=== PATIENT | male | born 1975 | race Caucasian/White ===

== ENCOUNTER 2020-10-31 18:45 | Emergency (ER) | payer OTHER, SELFPAY ==
--- NOTE | ~2020-10-31 | XR_ITS ---
EXAMINATION: XR ANKLE, RIGHT CLINICAL INFORMATION: Fall. Pain. COMPARISON: None TECHNIQUE: AP, lateral, and mortise views of the right ankle. FINDINGS: No acute fracture or dislocation. There is a lateral semitubular plate and screws across distal fibula, 2 transsyndesmotic screws and 2 screws across the medial malleolus. There is lucency surrounding the transsyndesmotic screws, less than 2 mm (within normal limits) Moderate tibiotalar marginal osteophytes. Ankle mortise is congruent. Talar dome intact. Positive ankle joint effusion. XR/XR ankle RT 2V IMPRESSION: No acute fracture, dislocation, evidence of hardware failure or dislocation. An ankle joint effusion is present.
--- NOTE | 2020-10-31 19:24 | ED.LOWEXIN ---
HPI - Extremity Injury (Lower) General Chief Complaint: Extremity Injury, Lower Stated Complaint: Ankle pain Time Seen by Provider: 10/31/20 18:50 Source: patient Mode of arrival: wheelchair Limitations: no limitations History of Present Illness HPI Narrative: 44-year-old male here with complaints of right ankle pain after an injury which occurred just prior to arrival. The patient tells me he slipped causing an eversion injury to his right ankle and since then he has had pain in the ankle which is worsened with weight-bearing. He has a prior history of the a distal right tibial and fibula fracture with surgical repair with screws in place in 2019 at [facility] Related Data Allergies Allergy/AdvReac Type Severity Reaction Status Date / Time ibuprofen [IBUPROFEN] AdvReac Severe STOMACH Verified 10/31/20 19:44 UPSET hydrocodone [From VICODIN] AdvReac Mild nausea Verified 10/31/20 19:44 Review of Systems Review of Systems: Yes all other systems are reviewed and are negative Constitutional: Constitutional: Reports no additional constitutional complaints, Denies body ache(s), Denies chills, Denies fever(s), Denies headache(s) and Denies weakness Eyes: Eyes: Reports no additional eye complaints and Denies change in vision ENT: Reports system reviewed and no additional complaints, except as documented, Denies dizziness, Denies headache(s), Denies nasal congestion, Denies nasal discharge and Denies neck pain Cardiovascular: Cardiovascular: Reports no additional cardiovascular complaints, Denies chest pain, Denies leg edema and Denies dyspnea Respiratory: Respiratory: Reports no additional respiratory complaints, Denies cough and Denies dyspnea Gastrointestinal: Gastrointestinal: Reports no additional gastrointestinal complaints, Denies abdominal pain, Denies diarrhea, Denies nausea and Denies vomiting Genitourinary: Genitourinary: Denies urinary incontinence Musculoskeletal: Musculoskeletal: Reports no additional musculoskeletal complaints, Denies back pain, Reports arthralgias, Reports joint swelling, Denies neck pain, Denies numbness and Denies tingling Integumentary/Breasts: Skin/Breast: Reports system reviewed and no additional complaints, except as docu and Denies rash Neurologic: Reports system reviewed and no additional complaints, except as documented, Denies Abnormal speech present, Denies dizziness, Denies headache(s), Denies numbness, Denies tingling and Denies weakness [facility] Past Medical History Attestation statement: The following information was validated with the patient. Source: old records reviewed and nursing notes reviewed Medical History (Updated 10/31/20 @ 21:01 by Justino Benson NP) Bursitis Surgical History (Updated 10/31/20 @ 19:30 by Justino Benson NP) History of ankle surgery Social History Social History Advance Directives: No Advance Directives Information Provided: No Physical Exam Vital Signs: Vital Signs: Last Vital Signs Temp 98.5 F 10/31/20 19:28 Pulse 75 10/31/20 19:28 Resp 17 10/31/20 19:28 BP 98/57 L 10/31/20 19:28 Pulse Ox 94 10/31/20 19:28 Body Mass Index 30.1 Const: General: cooperative, healthy appearing, comfortable and no acute distress Orientation/consciousness: patient oriented x3 Limitations: no limitations HENMT: Head: Yes normal to inspection Ears: hearing grossly normal bilaterally General nose exam: Normal external nose present Face and sinus: Yes normal facial exam Mouth: Normal oral and palatal mucosa present Throat: Yes posterior oropharynx normal Eyes: General: appearance normal, both eyes and all related structures Pupils: Equal, round and reactive pupils present Neck: Neck: Yes normal visual inspection Chest: Chest palpation & inspection: normal inspection of the chest Resp: Effort & Inspection: normal respiratory effort Auscultation: clear to auscultation bilaterally Cardio: Rate: regular rate Rhythm: regular rhythm Peripheral pulses: Peripheral pulses 2+ throughout GI: Inspection: Yes normal to inspection Palpation (GI): Soft to palpation and nontender Auscultation: normal bowel sounds Back/Spine/Pelvis: Thoracic/Lumbar Spine: thoracic and lumbar spine normal to inspection Skin: General skin exam: no rashes or lesions noted Neuro: General: patient oriented x3, no focal motor deficits and normal sensation to monofilament Cranial nerves: Yes Equal, round and reactive pupils present Cognition (Neuro): normal cognition Speech: No Abnormal speech present Gait exam (Neuro): Normal gait present Motor exam (neuro): 5/5 motor strength present throughout Extrem: Other: to the right anterior, lateral and medial ankle there is mild tenderness with swelling. Patient is able to flex and extend the foot with no difficulty. No pain over the dorsal foot. General: Yes normal to inspection Course Course Course Narrative: Will check x-rays. 2100- x-ray show no acute fracture, dislocation or evidence of hardware failure. No dislocation. Likely ankle sprain. Will place patient in Jorge wrap and crutches for home. I did recommend A air splint but patient declined this. Reviewed worrisome signs and symptoms of when to return to the emergency department. Comfortable discharge home. Procedures Procedure Narrative Procedure Narrative: Jorge wrap and crutches MDM - Extremity Injury (Lower) Medical Records Attestation: I reviewed the patient's medical records. Lab Data Attestation: I reviewed the patient's lab results. Imaging Data ankle right xray: Attestation: I personally reviewed and interpreted this imaging study as follows: Radiologist's impression: [address] [id number] ReportSigned Patient: Cleve Gr RMR#: [id number]: [id number]:[id number]/Sex: 44 / MADM Date: 10/31/20Loc: HO.EDAttending Dr: Ordering Physician: JUSTINO BENSON NP Date of Service: 10/31/20 Procedure(s): XR ankle RT 2V Accession Number(s): [id number] cc: JUSTINO BENSON NP~ EXAMINATION: XR ANKLE, RIGHT CLINICAL INFORMATION: Fall. Pain. COMPARISON: None TECHNIQUE: AP, lateral, and mortise views of the right ankle. FINDINGS: No acute fracture or dislocation. There is a lateral semitubular plate and screws across distal fibula, 2 transsyndesmotic screws and 2 screws across the medial malleolus. There is lucency surrounding the transsyndesmotic screws, less than 2 mm (within normal limits) Moderate tibiotalar marginal osteophytes. Ankle mortise is congruent. Talar dome intact. Positive ankle joint effusion. XR/XR ankle RT 2V IMPRESSION: No acute fracture, dislocation, evidence of hardware failure or dislocation. An ankle joint effusion is present. Discharge Plan Discharge Clinical Impression: Ankle sprain and strain Patient Disposition: Home, Self-Care Instructions: Ankle Sprain (ED) Additional Instructions: Rest, elevation, ice no weight-bearing until able to bear weight without experiencing pain Tylenol for pain at home your x-ray showed no fracture Referrals: Physician,None [Primary Care Provider] - 2 days Discharge Date/Time: 10/31/20 21:12
[2020-10-31 19:28] VITALS: BP 98/57; PULSE 75; RESP 17; TEMP 36.9; O2SAT 94; BMI 30.1
[2020-10-31] MEDS: Acetaminophen 325 MG TABLET 650 MG PO (19:46)
--- NOTE | 2020-10-31 19:48 | PC.NURSE ---
PT WAS TRIAGED AND OFFERED PAIN MED TYL/MOTRIN BY THIS NURSE IMMEDIATELY AFTER TRIAGE. PT HAS ALLERGY LISTED FOR MOTRIN. THIS WAS ADDRESSED WITH PATIENT. TYLENOL GIVEN. PT MAKING STATEMENTS THAT [facility] [place] STIGMA AGAINST CERTAIN PEOPLE. STATES HAS BEEN HERE OVER 1 1/2 HRS AND DID NOT GET PAIN MED IMMEDIATELY WHEN HE ARRIVED TO ED. PT STATES HE DROVE HIMSELF HERE DURING TRIAGE. EXPLAINED TO PATIENT THAT I TRIAGED HIM AND OFFERED HIM PAIN MAED IMMEDIATELY. THAT I CAN ONLY ORDER TYL OR MOTRIN BECAUSE I AM THE NURSE. WILL DISCUSS WITH PROVIDER.
--- NOTE | 2020-10-31 20:56 | PC.NURSE ---
XRAY NOT BACK YET. CHECKING WITH RADIOLOGY.
== END 2020-10-31 21:12 | disposition home or self-care (01) ==
PROVIDERS: Emergency Provider Emergency Medicine
DX: S93.401D Sprain of unspecified ligament of right ankle, subsequent encounter (principal); W01.0XXD Fall on same level from slipping, tripping and stumbling without subsequent striking against object, subsequent encounter; M25.471 Effusion, right ankle; Z98.890 Other specified postprocedural states
CPT/HCPCS: 73600; 99283; 99284

== ENCOUNTER 2022-04-22 17:55 | Inpatient (IN) | payer OTHER, SELFPAY ==
[2022-04-22 18:03] VITALS: BP 143/80; PULSE 90; RESP 18; TEMP 36.6; O2SAT 97; BMI 27.3
--- NOTE | 2022-04-22 19:28 | ED.PSYCH ---
HPI - Psych General Chief Complaint: Psychiatric Symptoms Stated Complaint: si, hearing voices Time Seen by Provider: 04/22/22 19:28 Source: patient Mode of arrival: ambulatory Limitations: no limitations History of Present Illness HPI Narrative: 46-year-old male presents for crisis evaluation, states to have auditory hallucinations but is nondescript about what they are. He reports that he has a polysubstance use disorder and feels suicidal. He has been admitted to [facility] psychiatric unit in the past. MD complaint: suicidal ideation, anxiety, substance abuse and hallucinations Onset (ago): year(s) Duration: constant History of same: Yes Context: recent drug abuse Associated psychiatric symptoms: depression, suicidal ideation and auditory hallucinations If self harm: admits thoughts of self harm Related Data Home Medications Medication Instructions Recorded Confirmed aspirin 325 mg tablet,delayed 1 tab PO DAILY 04/22/22 04/22/22 release bupropion HCl 300 mg 24 hr tablet, 1 tab PO DAILY 04/22/22 04/22/22 extended release clonazepam 1 mg tablet 1 tab PO BID 04/22/22 04/22/22 cyclobenzaprine 10 mg tablet 1 tab PO TID PRN Muscle Spasm 04/22/22 04/22/22 dicyclomine 10 mg capsule 1 cap PO QID PRN Pain 04/22/22 04/22/22 gabapentin 300 mg capsule 2 cap PO TID 04/22/22 04/22/22 hydroxyzine pamoate 50 mg capsule 50 mg PO BEDTIME 04/22/22 04/22/22 ibuprofen 200 mg tablet 1 tab PO Q4H PRN mild pain 04/22/22 04/22/22 nicotine (polacrilex) 2 mg gum 1 gum PO Q2H PRN Nicotine Cravings 04/22/22 04/22/22 quetiapine 300 mg tablet 2 tab PO BEDTIME 04/22/22 04/22/22 trazodone 300 mg tablet 1 tab PO BEDTIME 04/22/22 04/22/22 Allergies Allergy/AdvReac Type Severity Reaction Status Date / Time ibuprofen [IBUPROFEN] AdvReac Severe STOMACH Verified 10/31/20 19:44 UPSET hydrocodone [From VICODIN] AdvReac Mild nausea Verified 10/31/20 19:44 Review of Systems Review of Systems: Constitutional: No Fever, No Chills Cardiovascular: No Chest Pain, No SOB Respiratory: No Cough, No Sputum, No Dyspnea Gastrointestinal: No Nausea, No Vomiting, No Diarrhea Genitourinary: No Dysuria, No Urinary Frequency Musculoskeletal: No Myalgias Skin: No Skin Lesions, No rash Neuro: No Weakness, No Numbness, No Paresthesias, No Dizziness, No Headache Psych: positive Anxiety, positive Depression, positive SI, positive auditory hallucinations, positive substance abuse Yes all other systems are reviewed and are negative [facility] Past Medical History Attestation statement: The following information was validated with the patient. Source: old records reviewed Medical History Bursitis Surgical History History of ankle surgery Social History Social History Advance Directives: No Advance Directives Information Provided: No Physical Exam Vital Signs: Vital Signs: Last Vital Signs Temp 98 F 04/22/22 18:03 Pulse 90 04/22/22 18:03 Resp 18 04/22/22 18:03 BP 143/80 H 04/22/22 18:03 Pulse Ox 97 04/22/22 18:03 O2 Del Method 04/22/22 18:03 BMI result Body Mass Index 27.3 Appearance: Alert. Oriented X3. No acute distress. Eyes: Pupils equal, round and reactive to light. ENT: Pharynx normal. Neck: Normal inspection. Neck supple. CVS: Normal heart rate and rhythm. Pulses normal. Respiratory: No respiratory distress. Breath sounds normal. Skin: Skin warm and dry. Normal skin color. Normal skin turgor. Extremities: Gait well balanced well coordinated. Neuro: No motor deficit. No sensory deficit. Cranial nerves 2-12 intact. Course Course Course Narrative: 46-year-old male presents for psychiatric evaluation. Is reporting auditory hallucinations, and polysubstance abuse. Reports that he has had several psychiatric admissions to [facility]. Patient is not forthcoming about his plan or auditory hallucinations. Will order labs and crisis consult. 21:00 lab values are unremarkable. Urinalysis is pending. Medically cleared with the exception of drugs of abuse screen. Physician observation at this time. Crisis consult pending. Medications Administered Generic Name Dose Route Start Last Admin Trade Name Freq PRN Reason Stop Dose Admin Clonazepam 1 mg 04/22/22 21:45 04/22/22 21:52 Clonazepam 1 Mg Tablet PO 1 mg BID ROMI Administration Gabapentin 600 mg 04/22/22 21:45 04/22/22 21:52 Gabapentin 300 Mg Capsule PO 600 mg TID ROMI Administration Hydroxyzine HCl 50 mg 04/22/22 21:45 04/22/22 21:52 Hydroxyzine Hcl 50 Mg Tablet PO 50 mg BEDTIME ROMI Administration Trazodone HCl 300 mg 04/22/22 21:45 04/22/22 21:52 Trazodone Hcl 100 Mg Tablet PO 300 mg BEDTIME ROMI Administration Medical Decision Making Differential Diagnosis Differential Diagnoses: The differential diagnosis associated with the presentation includes Psychosis, polysubstance abuse, suicidal Admission/Observation Consideration of admission/observation: Escalation of care including admission/observation considered Possible M5 M3 admission Consult Healthcare Provider Management of the patient was discussed with: Behavioral Health Provider Lab Data MDM Lab Attestation statement: I reviewed the patient's lab results. Result Diagrams: 04/22/22 19:47 Labs: Lab Results 04/22/22 04/22/22 Range/Units 19:47 19:47 Sodium 138 (135-145) mmol/L Potassium 4.7 (3.3-5.1) mmol/L Chloride 104 (96-108) mmol/L Carbon Dioxide 24 (22-29) mmol/L Anion Gap 15 (12-20) BUN 11 (9-16) mg/dL Creatinine 0.88 (0.5-1.4) mg/dL Estim Creat Clear Calc 104.8 Estimated GFR > 60 Random Glucose 75 (60-115) mg/dL Calcium 9.3 (8.4-10.2) mg/dL Total Bilirubin 0.6 (0.0-1.0) mg/dL AST 40 H (5-37) U/L ALT 18 (0-40) U/L Alkaline Phosphatase 65 (39-117) U/L Total Protein 8.4 H (6.5-8.0) g/dL Albumin 4.6 (3.5-5.0) g/dL Salicylates < 5.0 L (15-30) mg/dL Acetaminophen < 1 (<30) mcg/mL Ethyl Alcohol < 10 mg/dL COVID-19 (MAHAD) Negative (Negative) COVID-19 Clin Com See Note Discharge Plan Discharge Clinical Impression: Acute psychosis, Suicidal ideation Patient Disposition: Still a Patient Prescriptions: No Action cyclobenzaprine 10 mg tablet 1 tab PO TID PRN (Reason: Muscle Spasm) nicotine (polacrilex) 2 mg gum 1 gum PO Q2H PRN (Reason: Nicotine Cravings) clonazepam 1 mg tablet 1 tab PO BID hydroxyzine pamoate 50 mg capsule 50 mg PO BEDTIME aspirin 325 mg tablet,delayed release (DR/EC) 1 tab PO DAILY ibuprofen 200 mg tablet 1 tab PO Q4H PRN (Reason: mild pain) trazodone 300 mg tablet 1 tab PO BEDTIME gabapentin 300 mg capsule 2 cap PO TID dicyclomine 10 mg capsule 1 cap PO QID PRN (Reason: Pain) bupropion HCl 300 mg tablet extended release 24 hr 1 tab PO DAILY quetiapine 300 mg tablet 2 tab PO BEDTIME
[2022-04-22 20:34] LABS: COVID-19 Test Negative (Negative)
[2022-04-22 20:37] LABS: Acetaminophen LAB < 1 mcg/mL (<30); Alanine Aminotransferase 18 U/L (0-40); Albumin Level 4.6 g/dL (3.5-5.0); Alkaline Phosphatase 65 U/L (39-117); Anion Gap 15 (12-20); Aspartate Amino Transferase 40 U/L (5-37); Bilirubin Total 0.6 mg/dL (0.0-1.0); Blood Urea Nitrogen 11 mg/dL (9-16); Calcium 9.3 mg/dL (8.4-10.2); Carbon Dioxide 24 mmol/L (22-29); Chloride 104 mmol/L (96-108); Creatinine Clr Calc Pharmacy 104.8; Estimated Glomerular Filt Rate > 60; Ethanol < 10 mg/dL; Glucose Random 75 mg/dL (60-115); Potassium 4.7 mmol/L (3.3-5.1); Salicylate < 5.0 mg/dL (15-30); Sodium 138 mmol/L (135-145); Total Protein 8.4 g/dL (6.5-8.0)
[2022-04-22] MEDS: traZODone HCL 100 MG TABLET 300 MG PO (21:52)
[2022-04-22] MEDS: Gabapentin 300 MG CAPSULE 600 MG PO (21:52)
[2022-04-22] MEDS: clonazePAM 1 MG TABLET PO (21:52)
[2022-04-22] MEDS: hydrOXYzine HCL 50 MG TABLET PO (21:52)
--- NOTE | 2022-04-23 03:03 | PC.NURSE ---
Patient is in bed appears sleeping, no distress observed/reported, medication compliant, urine pending, [facility] referral completed/pending ETA, behavior non concerning, VSS, will continue to monitor.
[2022-04-23 06:02] VITALS: RESP 17
[2022-04-23] MEDS: clonazePAM 1 MG TABLET PO ×2 (08:50→20:29)
[2022-04-23] MEDS: Gabapentin 300 MG CAPSULE 600 MG PO ×3 (08:50→20:29)
[2022-04-23] MEDS: buPROPion HCl XL 300 MG TAB.ER.24H PO (08:50)
[2022-04-23] MEDS: Aspirin Enteric Coated 325 MG TABLET.DR PO (08:51)
--- NOTE | 2022-04-23 12:32 | PC.NURSE ---
patient sitting in bed, watching tv. cooperative and polite to staff members. able to make needs known.ambulating with strong steady gait
[2022-04-23] MEDS: Cyclobenzaprine HCl 10 MG TABLET PO (12:48)
[2022-04-23] MEDS: Ibuprofen 200 MG TABLET PO (12:48)
--- NOTE | 2022-04-23 15:05 | MHC.CARE ---
statewide inpatient bedsearch exhausted
[2022-04-23 16:09] VITALS: BP 103/56; PULSE 64; RESP 16; TEMP 36.6; O2SAT 97
[2022-04-23] MEDS: traZODone HCL 100 MG TABLET 300 MG PO (20:29)
[2022-04-23] MEDS: hydrOXYzine HCL 50 MG TABLET PO (20:29)
--- NOTE | 2022-04-24 06:01 | PC.NURSE ---
Patient slept through the night, no distress observed/reported, medication compliant, behavior appropriate and non concerning at this time, urine pending, disposition per care team is voluntary inpatient bed search, no update on bed search thus far, VSS, will continue to monitor.
[2022-04-24 06:19] LABS: MANUAL DIFF FLAG NO
[2022-04-24 06:31] VITALS: BP 109/51; PULSE 56; RESP 17; TEMP 37.1; O2SAT 98
[2022-04-24 06:32] LABS: Basophils Percent Auto 0.5 % (0-2); Eosinophils Absolute Auto 0.2 X10*3/uL (0.0-0.4); Eosinophils Percent Auto 3.8 % (0-4); Hematocrit 34.7 % (42.0-52.0); Hemoglobin 10.9 g/dl (14.0-18.0); Imm Gran Abs Auto 0.01 X10*3/uL (0.00-0.03); Imm Gran Pct Auto 0.2 % (0.0-0.4); Lymphocytes Absolute Auto 2.7 X10*3/uL (1.2-4.9); Lymphocytes Percent Auto 49.8 % (20-40); Mean Corpuscular HGB Conc 31.4 g/dl (31.0-36.0); Mean Corpuscular Hemoglobin 29.6 pg (27.0-33.0); Mean Corpuscular Volume 94.3 fL (80.0-98.0); Mean Platelet Volume 11.5 fL (9.4-12.4); Monocytes Absolute Auto 0.6 X10*3/uL (0.1-1.2); Monocytes Percent Auto 11.5 % (2-11); Neutrophils Absolute Auto 1.9 x10*3/uL (2.0-8.3); Neutrophils Percent Auto 34.2 % (45-73); Platelet Count 164 X10*3/uL (160-400); Red Blood Count 3.68 X10*6/uL (4.60-5.80); Red Cell Distribution Width 13.5 % (11.0-16.0); White Blood Count 5.5 X10*3/uL (4.8-10.8)
[2022-04-24 07:33] LABS: Amphetamine Screen Urine Not Detected (Not Detect); Barbiturates, Urine Not Detected (Not Detect); Benzodiazepines Screen Urine Not Detected (Not Detect); Cannabinoid Screen Urine Not Detected (Not Detect); Cocaine Screen Urine POSITIVE (Not Detect); Fentanyl, urine POSITIVE (Not Detect); Opiate Screen Urine POSITIVE (Not Detect); Phencyclidine Screen Urine Not Detected (Not Detect)
[2022-04-24] MEDS: Gabapentin 300 MG CAPSULE 600 MG PO ×3 (08:24→21:56)
[2022-04-24] MEDS: buPROPion HCl XL 300 MG TAB.ER.24H PO (08:24)
[2022-04-24] MEDS: clonazePAM 1 MG TABLET PO ×2 (08:24→21:57)
[2022-04-24] MEDS: Aspirin Enteric Coated 325 MG TABLET.DR PO (08:25)
--- NOTE | 2022-04-24 09:54 | ECG_ITS ---
Test Reason : MED CLEARANCE FOR FLOOR, POS ISRAEL Blood Pressure : / mmHG Vent. Rate : 069 BPM Atrial Rate : 069 BPM P-R Int : 172 ms QRS Dur : 084 ms QT Int : 416 ms P-R-T Axes : 058 077 046 degrees QTc Int : 445 ms Normal sinus rhythm with sinus arrhythmia Normal ECG When compared with ECG of 12-FEB-2015 23:07, QRS voltage has decreased Referred By: Jaelyn Black Electronically Signed By:ILEANA HART MD
--- NOTE | 2022-04-24 10:18 | HE.PHANOTE ---
Vancomycin Dosing Addendum Patients methadone was verified this morning by NEREIDA Perez, with [facility] @[phone]. Verified with NEREIDA Guerra at the facility, patient is on 90 mg PO daily.
--- NOTE | 2022-04-24 10:26 | PHA.MEDREC ---
Pharmacy Consult ? Medication Reconciliation Pharmacy has completed the medication reconciliation. Reviewed med rec done by nursing (Escobar).
[2022-04-24] MEDS: methADONE HCl 20 MG/2 ML ORAL.CONC 90 MG PO (10:53)
[2022-04-24] MEDS: clonazePAM 0.5 MG TABLET PO (15:26)
[2022-04-24 18:00] VITALS: BP 119/66; PULSE 83; TEMP 36.2
[2022-04-24] MEDS: QUEtiapine Fumarate 300 MG TABLET 600 MG PO (21:56)
[2022-04-24] MEDS: traZODone HCL 100 MG TABLET 300 MG PO (21:57)
[2022-04-24] MEDS: hydrOXYzine HCL 50 MG TABLET PO (21:58)
--- NOTE | 2022-04-25 00:09 | PC.ADMIT ---
A Brazilian-speaking white male aged 46 years was [facility] at 1753 following referral from [facility]. Pt is not known to but was recently discharged from [facility] on 04/19/22 after a 17 day stay for medication stabilization per pt. Pt expressed he felt he left too early. Pt self presented to [facility] on 04/22/22 endorsing auditory hallucinations. Pt had said he has a poly-substance use disorder and feels suicidal. Pt reported after d/c from [facility], he returned to his apartment to find out that his girlfriend has been using crack cocaine. Pt woke finding discharge medications and his car missing. Pt said he had not had his medications for about 4-5 days and began to have AH of voices and having thoughts to harm his GF. Pt denies current thoughts to harm his GF and says he can seek out staff fore help. Pt wants to break up with his GF and is unsure if she is in trouble or sectioned somewhere. Pt expressed he is worried about his step-daughter who lives with her grandmother because she is a drug user he feels the step-daughter is neglected. Pt denies pain, rates anxiety 3/10 and depression 8/10. Pt says since restarting medications in the ED voices are less harsh . Pt denies SI/HI and says can seek help from staff. Pt reports sleeping and eating well. Pt says he feels drained emotionally and physically. Pt reports he is satisfied with his current meds ands says seroquel helps with his voices. Pt has a psychiatric medication provider he doesn't like. Pt reports he would like a therapist and says he is open to PHP; pt was encouraged to attend groups while on M5. ISRAEL was positive for opiates, fentanyl, and cocaine. Pt reports periods of sobriety adding that this was a binge. Pt denies medical issues or weight change, but says he may be experiencing some mild W/D symptoms of diarrhea and diaphoresis. [id number] done, admission orders obtained, safety tool and intial treatment plan done. Pt is resting in bed room on 15 minute safety checks.
[2022-04-25] MEDS: Gabapentin 300 MG CAPSULE 600 MG PO ×3 (08:36→20:09)
[2022-04-25] MEDS: buPROPion HCl XL 300 MG TAB.ER.24H PO (08:37)
[2022-04-25] MEDS: Aspirin Enteric Coated 325 MG TABLET.DR PO (08:37)
[2022-04-25] MEDS: methADONE HCl 20 MG/2 ML ORAL.CONC 90 MG PO (08:37)
[2022-04-25] MEDS: clonazePAM 1 MG TABLET PO ×2 (08:37→20:09)
[2022-04-25 10:11] VITALS: BP 114/65; PULSE 86; RESP 16; TEMP 36.2; O2SAT 96
[2022-04-25] MEDS: Nicotine Polacrilex 2 MG GUM BUCCAL ×3 (14:06→20:09)
[2022-04-25] MEDS: hydrOXYzine HCL 25 MG TABLET PO (14:08)
[2022-04-25 14:30] LABS: COVID-19 Test Negative (Negative); IDNOW Serial# 55D5AD1C
[2022-04-25] MEDS: Cyclobenzaprine HCl 10 MG TABLET PO (15:40)
[2022-04-25] MEDS: Ibuprofen 200 MG TABLET PO ×2 (15:42→20:09)
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
[2022-04-25] MEDS: hydrOXYzine HCL 50 MG TABLET PO (20:09)
[2022-04-25] MEDS: QUEtiapine Fumarate 300 MG TABLET 600 MG PO (20:09)
[2022-04-25] MEDS: traZODone HCL 100 MG TABLET 300 MG PO (20:10)
[2022-04-25 20:21] VITALS: BP 109/60; PULSE 79; RESP 16; TEMP 36.4; O2SAT 93
[2022-04-26 07:00] VITALS: BMI 33.3
[2022-04-26 08:45] VITALS: BP 125/64; PULSE 85; RESP 16; TEMP 36.3; O2SAT 93
[2022-04-26] MEDS: methADONE HCl 20 MG/2 ML ORAL.CONC 90 MG PO (08:52)
[2022-04-26] MEDS: Gabapentin 300 MG CAPSULE 600 MG PO ×2 (08:54→14:26)
[2022-04-26] MEDS: Aspirin Enteric Coated 325 MG TABLET.DR PO (08:55)
[2022-04-26] MEDS: buPROPion HCl XL 300 MG TAB.ER.24H PO (08:55)
[2022-04-26] MEDS: clonazePAM 1 MG TABLET PO (08:55)
[2022-04-26] MEDS: Ibuprofen 600 MG TABLET PO ×2 (08:57→14:27)
[2022-04-26] MEDS: Cyclobenzaprine HCl 10 MG TABLET PO ×2 (08:58→14:26)
[2022-04-26] MEDS: Trolamine Salicylate 10 % Cream 141 gm Tube 1 APPL TOPICAL (14:25)
[2022-04-26] MEDS: Nicotine Polacrilex 2 MG GUM BUCCAL (16:42)
[2022-04-26 17:17] VITALS: BP 107/58; PULSE 69; RESP 14; TEMP 36.3; O2SAT 93
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
[2022-04-26] MEDS: traZODone HCL 100 MG TABLET 300 MG PO (21:14)
[2022-04-26] MEDS: QUEtiapine Fumarate 300 MG TABLET 600 MG PO (21:15)
[2022-04-27] MEDS: buPROPion HCl XL 300 MG TAB.ER.24H PO (08:34)
[2022-04-27] MEDS: Gabapentin 300 MG CAPSULE 600 MG PO (08:34)
[2022-04-27] MEDS: Aspirin Enteric Coated 325 MG TABLET.DR PO (08:34)
[2022-04-27] MEDS: methADONE HCl 20 MG/2 ML ORAL.CONC 90 MG PO (08:34)
[2022-04-27] MEDS: clonazePAM 1 MG TABLET PO (08:34)
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
== END 2022-04-27 11:30 | disposition home or self-care (01) | DRG 750 ==
LOC: HO.ED 04-24 14:22 → HO.PM5 04-24 16:55
PROVIDERS: Nurse Practitioner Family; Admitting Provider Clinical Nurse Specialist Psychiatric/Mental Health, Adult; Emergency Provider Internal Medicine; Visit Provider Clinical Nurse Specialist Psychiatric/Mental Health, Adult
DX: F25.9 Schizoaffective disorder, unspecified (principal); R45.851 Suicidal ideations; F11.20 Opioid dependence, uncomplicated; Z20.822 Contact with and (suspected) exposure to COVID-19; Z79.82 Long term (current) use of aspirin; Z79.899 Other long term (current) drug therapy
CPT/HCPCS: 36415; 80053; 80143; 80179; 80307; 82077; 85025; 87635; 93005; 99285

== ENCOUNTER 2022-05-04 20:18 | Emergency (ER) | payer OTHER, SELFPAY ==
--- NOTE | 2022-05-04 | ECG_ITS ---
Test Reason : chest pain/covid+ Blood Pressure : / mmHG Vent. Rate : 086 BPM Atrial Rate : 086 BPM P-R Int : 132 ms QRS Dur : 088 ms QT Int : 364 ms P-R-T Axes : -21 072 029 degrees QTc Int : 435 ms Normal sinus rhythm Normal ECG When compared with ECG of 24-APR-2022 10:04, No significant change was found Referred By: Generic ED Physician Electronically Signed By:SUSHILA MYERS
[2022-05-04 20:44] VITALS: BP 137/83; PULSE 83; RESP 16; TEMP 36.6; O2SAT 96; BMI 31.5
--- NOTE | 2022-05-04 20:52 | MHC.EDTECH ---
This Pct attempted to draw patients labs in the waiting room, patient is an extremely difficult stick, I attempted twice,Medical Lab Director aware and Charge aware.
--- NOTE | 2022-05-04 22:52 | ED.GENADULT ---
HPI - General Adult General Chief complaint: General Medical Stated complaint: Chest pain/+Covid Time Seen by Provider: 05/04/22 22:29 Source: patient Mode of arrival: ambulatory Limitations: no limitations History of Present Illness HPI narrative: 46-year-old male presents for multiple concerns. States that he was using heroin and cocaine, and feels that he wants a repeat COVID test because he was positive at [facility] 2 days ago. Patient states he also wants to speak to the care team because he can not get his medications, and feels like he left the Psychiatric Department to early. He denies suicidal ideation and homicidal ideation. Onset (ago): year(s) Radiation: non-radiation Severity: mild Associated symptoms: denies other symptoms Treatments prior to arrival: none Related Data Home Medications Medication Instructions Recorded Confirmed methadone 10 mg/mL oral syringe 90 mg PO DAILY 04/24/22 04/24/22 (FOR ORAL USE ONLY) aspirin 325 mg tablet,delayed 1 tab PO DAILY 05/04/22 05/04/22 release bupropion HCl 300 mg 24 hr tablet, 1 tab PO DAILY 05/04/22 05/04/22 extended release clonazepam 0.5 mg tablet 1 tab PO BID PRN anxiety 05/04/22 05/04/22 cyclobenzaprine 10 mg tablet 1 tab PO TID 05/04/22 05/04/22 dicyclomine 10 mg capsule 1 cap PO Q6H PRN Gastrointestinal 05/04/22 05/04/22 Spasms Or Cramping gabapentin 300 mg capsule 2 cap PO TID 05/04/22 05/04/22 quetiapine 200 mg tablet 2 tab PO BEDTIME 05/04/22 05/04/22 trazodone 100 mg tablet 2 tab PO BEDTIME 05/04/22 05/04/22 Allergies Allergy/AdvReac Type Severity Reaction Status Date / Time hydrocodone [From VICODIN] AdvReac Mild nausea Verified 10/31/20 19:44 Review of Systems Review of Systems: Constitutional: No Fever, No Chills Cardiovascular: Positive Chest Pain, No SOB Respiratory: No Cough, No Dyspnea Gastrointestinal: No Nausea, No Vomiting, No Diarrhea, No abdominal Pain Genitourinary: No Dysuria, No Hematuria Musculoskeletal: positive chest wall pain, No Myalgias, No Joint Swelling Skin: No Skin lacerations, No rash Neuro: No Weakness, No Numbness, No Paresthesias, No Dizziness, No Headache Psych: Positive substance abuse, No Anxiety/Panic, No Depression Yes all other systems are reviewed and are negative [facility] Past Medical History Attestation statement: The following information was validated with the patient. Source: old records reviewed Medical History Bursitis Opioid use disorder Schizoaffective disorder Surgical History History of ankle surgery Social History Social History Household Members: None Housing: Apartment Do you presently have visiting nurse or other home services: No Alcohol intake: unknown Patient Tobacco Use Status: Never used Tobacco Substance Use Type: Crack/Cocaine and Opiates Advance Directives: No Advance Directives Information Provided: No service: No Sexual orientation: Straight/Heterosexual Physical Exam ED Vital Signs: Vital Signs - 24 hr 05/04/22 20:44 Temperature 97.9 F Pulse Rate 83 Respiratory Rate 16 Blood Pressure 137/83 Pulse Oximetry 96 Oxygen Delivery Method Room Air BMI result Body Mass Index 31.5 Appearance: Alert. Oriented X3. No acute distress. Eyes: Pupils equal, round and reactive to light. ENT: Pharynx normal. Neck: Normal inspection. Neck supple. CVS: Normal heart rate and rhythm. Respiratory: No respiratory distress. Skin: Skin warm and dry. Normal skin color. Normal skin turgor. Extremities: Gait well balanced well coordinated.. Neuro: No motor deficit. No sensory deficit. Cranial nerves 2-12 intact. Course Course Course Narrative: 46-year-old male well known to this facility presents for vague concerns regarding his COVID positive testing 2 days ago at [facility], his inability to obtain medications, and his substance abuse. Originally he was in [facility] area of the emergency department, however he stated that he needed to speak to a crisis counselor. Patient stated that he is not so a saddle or homicidal, is not interested in detox, states that he felt that people lied to him. Patient is very vague about his description of the lie . Patient was moved to the psychiatric unit of the emergency department. Patient denies suicidal ideation, homicidal ideation, and declines detox at this time. 23:20 patient is verbally aggressive to all staff, threatening to physically assault and Patel down the women in the emergency department psychiatric unit, states that he does not want to be here, patient is not suicidal or homicidal, patient states that everybody is lying to him. Verbally threatened this LEGAL BILLING COORDINATOR, considering patient is not section, is not suicidal or homicidal, plan of care is to discharge. Security assisting with this patient. Patient escorted off the facility by security and morals squad police officer. Medical Decision Making Differential Diagnosis Differential Diagnoses: The differential diagnosis associated with the presentation includes Lab Data MDM Lab Attestation statement: I reviewed the patient's lab results. Labs: Lab Results 05/04/22 05/04/22 05/04/22 Range/Units 23:07 23:07 23:07 Urine Color Yellow Urine Appearance Clear Urine pH 6.5 (5.0-9.0) Ur Specific [place] 1.020 (1.005-1.025) Urine Protein Negative (Neg-Trace) mg/dL Urine Glucose (UA) Negative (Negative) mg/dL Urine Ketones Trace (Negative) mg/dL Urine Blood Negative (Negative) Urine Nitrite Negative (Negative) Ur Leukocyte Esterase Negative (Negative) Urine Opiates Screen POSITIVE H (Not Detect) Urine Fentanyl Screen POSITIVE H (Not Detect) Ur Barbiturates Screen Not Detected (Not Detect) Ur Phencyclidine Scrn Not Detected (Not Detect) Ur Amphetamines Screen Not Detected (Not Detect) U Benzodiazepines Scrn Not Detected (Not Detect) Urine Cocaine Screen POSITIVE H (Not Detect) U Marijuana (THC) Screen Not Detected (Not Detect) COVID-19 (MAHAD) Positive A (Negative) COVID-19 Clin Com See Note Independent Interpretation I performed an independent interpretation of an: EKG Interpretation: Vent. rate 86 BPM NM interval 132 ms QRS duration 88 ms QT/QTc 364/435 ms P-R-T axes -21 72 29 Normal sinus rhythm Normal ECG When compared with ECG of 24-APR-2022 10:04, No significant change was found 04-MAY-2022 20:29:21 External Record Review External record reviewed: Inpatient record, Outpatient record and Prior outpatient labs Discharge Plan Discharge Clinical Impression: Anxiety Patient Disposition: Home, Self-Care Instructions: Anxiety (ED) Additional Instructions: Thank you for choosing this emergency department for evaluation. Please follow-up with primary care physician as needed. Return to the emergency department for any new, concerning, or worsening symptoms. Prescriptions: No Action methadone 10 mg/mL Syringe 90 mg PO DAILY cyclobenzaprine 10 mg tablet 1 tab PO TID clonazepam 0.5 mg tablet 1 tab PO BID PRN (Reason: anxiety) quetiapine 200 mg tablet 2 tab PO BEDTIME aspirin 325 mg tablet,delayed release (DR/EC) 1 tab PO DAILY trazodone 100 mg tablet 2 tab PO BEDTIME gabapentin 300 mg capsule 2 cap PO TID dicyclomine 10 mg capsule 1 cap PO Q6H PRN (Reason: Gastrointestinal Spasms Or Cramping) bupropion HCl 300 mg tablet extended release 24 hr 1 tab PO DAILY Interventions: ED Discharge Assessment Last Done: 05/05/22 00:16 Discharge Date/Time: 05/05/22 00:21
--- NOTE | 2022-05-04 23:12 | PC.NURSE ---
Patient was just transferred from main ED, chief complaint of ED visit was chest pain, EKG completed/WNL, ED was not able to draw blood/including Troponin/provider made aware/no new instruction related to blood draw, patient requesting for Methadone as soon as get into the pod. Patient is yelling and screaming demanding discharge.
[2022-05-04 23:18] LABS: Appearance Urine Clear; Color Urine Yellow; Glucose Urine UA Negative (Negative); Leukocyte Esterase Urine Negative (Negative); Nitrite Urine Negative (Negative); PH 6.5 (5.0-9.0); Urine Blood Negative (Negative); Urine Ketones Trace mg/dL (Negative); Urine Protein Negative (Neg-Trace)
--- NOTE | 2022-05-04 23:23 | PC.NURSE ---
Patient was extremely rude and verbally abusive towards staff, particularly with provider. Patient said to the provider, you cunt, I will hit you bitch and to our female staff, watch your back outside . Patient is under influence. Patient got agitated when hospital phone use policy was made aware. Patient demanded 24 hours access to phone.
[2022-05-04 23:26] LABS: COVID-19 Test Positive (Negative); IDNOW Serial# 6674DD1D
[2022-05-04 23:35] LABS: Fentanyl, urine POSITIVE (Not Detect)
[2022-05-04 23:36] LABS: Amphetamine Screen Urine Not Detected (Not Detect); Barbiturates, Urine Not Detected (Not Detect); Benzodiazepines Screen Urine Not Detected (Not Detect); Cannabinoid Screen Urine Not Detected (Not Detect); Opiate Screen Urine POSITIVE (Not Detect); Phencyclidine Screen Urine Not Detected (Not Detect)
[2022-05-05 01:03] LABS: Cocaine Screen Urine POSITIVE (Not Detect)
== END 2022-05-05 00:21 | disposition home or self-care (01) ==
PROVIDERS: Nurse Practitioner Family; Emergency Provider Student in an Organized Health Care Education/Training Program
DX: U07.1 COVID-19 (principal); R07.89 Other chest pain; F41.1 Generalized anxiety disorder; F43.0 Acute stress reaction; Z79.899 Other long term (current) drug therapy
CPT/HCPCS: 80307; 81003; 87635; 93005; 99283

== ENCOUNTER 2023-11-12 20:05 | Inpatient (IN) | payer OTHER, SELFPAY ==
--- NOTE | ~2023-11-12 | XR_ITS ---
EXAMINATION: XR ANKLE, RIGHT CLINICAL INFORMATION: Prior surgery. Worsening pain. COMPARISON: 10/31/2020 TECHNIQUE: AP, lateral, and mortise views of the right ankle. FINDINGS: Status post ORIF with lateral surgical plate and screw fixation of the fibula. There are 2 transverse syndesmotic screws. There are screws across the medial malleolus. The fracture lines are indistinct on the current study. No periprosthetic lucency or fracture. Mild degenerative changes of the tibiotalar joint with marginal osteophytes Ankle mortise is maintained. Talar dome is intact. No significant soft tissue swelling. No significant joint effusion. XR/XR ankle RT min 3V IMPRESSION: No radiographic evidence of hardware complication.
[2023-11-12 20:18] VITALS: BP 148/74; PULSE 90; RESP 18; TEMP 36.8; O2SAT 96; BMI 29.4
--- NOTE | 2023-11-12 20:18 | ED.PSYCH ---
HPI - Psych General Chief Complaint: Psychiatric Symptoms Stated Complaint: not sleeping Time Seen by Provider: 11/12/23 20:45 Source: patient Mode of arrival: ambulatory Limitations: no limitations History of Present Illness ED Provider: Dr. Kathy Fofana HPI Narrative: Patient comes to the emergency room complaining of insomnia. Patient states that recently his medications were switched at [facility]. Patient states that he used to take Seroquel and was working well to help him sleep but it was not helping with the auditory hallucinations. His medication was switched to Zyprexa. Patient states that he is having auditory hallucinations and now he has not sleeping. Patient was also prescribed trazodone but is not helping. Patient states that he sleeps small amounts of time here and there and feels that he has not getting enough rest. Also, patient complaining chronic parasite infestation in his blood , states that when he gets his blood drawn, one can see the parasites moving in his veins. States he has has been present for about 8 months it patient admits to stating that he will drink alcohol to . No HI Related Data Home Medications ?Medication ?Instructions ?Recorded ?Confirmed methadone 10 mg/mL oral syringe 50 mg PO DAILY 04/24/22 11/13/23 (FOR ORAL USE ONLY) baclofen 10 mg tablet 10 mg PO DAILY 11/12/23 11/12/23 bupropion HCl 75 mg tablet 75 mg PO BID@0630,1630 11/12/23 11/12/23 buspirone 5 mg tablet 5 mg PO TID 11/12/23 11/12/23 clonidine HCl 0.1 mg tablet 0.1 mg PO DAILY 11/13/23 11/13/23 gabapentin 100 mg capsule 200 mg PO TID 11/13/23 11/13/23 hydroxyzine pamoate 50 mg capsule 100 mg PO BID 11/13/23 11/13/23 melatonin 3 mg tablet 6 mg PO BEDTIME 11/13/23 11/13/23 olanzapine 10 mg tablet 10 mg PO BID 11/13/23 11/13/23 Allergies Allergy/AdvReac Type Severity Reaction Status Date / Time hydrocodone [From VICODIN] AdvReac Mild nausea Verified 11/12/23 20:20 Review of Systems Review of Systems: Constitutional : No Weight loss, No Fever, No Chills, No Night Sweats, No Fatigue, No Malaise ENT/Mouth : No Hearing loss, No Ear Pain, No Nasal Congestion, No Sinus Pain, No Hoarseness, No sore throat, No Rhinorrhea, No Swallowing Difficulty Eyes: No Eye Pain, No Swelling, No Redness, No Foreign Body, No Discharge, No Vision Changes Cardiovascular : No Chest Pain, No SOB, No Dyspnea on Exertion, No Orthopnea, No Edema, No Palpitations Respiratory : No Cough, No Sputum, No Wheezing, No Smoke Exposure, No Dyspnea Gastrointestinal : No Nausea, No Vomiting, No Diarrhea, No Constipation, No abdominal Pain, No Hematochezia, No Melena Genitourinary : no irregular bleeding, No Dysuria, No Urinary Frequency, No Hematuria, No Urinary Incontinence, No Urgency, No Flank Pain, No Urinary Flow Changes, No Hesitancy Musculoskeletal : No joint pain, No Myalgias, No Joint Swelling Skin : No Skin Lesions, No rash Neuro : No Weakness, No Numbness, No Paresthesias, No Loss of Consciousness, No Dizziness, No Headache Psych : Leading of SI, no HI, auditory hallucinations, insomnia, delusional parasitosis Heme/Lymph: No Bruising, No Bleeding,No Lymphadenopathy Endocrine : No Polyuria, No Polydipsia, No Temperature Intolerance PMFSH Past Medical History Medical History (Updated 11/12/23 @ 21:05 by Kathy Fofana MD) Delusions of parasitosis Opioid use disorder Schizoaffective disorder Bursitis Surgical History History of ankle surgery Social History Social History Household Members: None Housing: Apartment Do you presently have visiting nurse or other home services: No Alcohol intake: unknown Patient Tobacco Use Status: Never used Tobacco Substance Use Type: Crack/Cocaine and Opiates Advance Directives: No Advance Directives Information Provided: No Do you have a plan to hurt others: No Plan service: No Sexual orientation: Straight/Heterosexual Physical Exam Vital Signs: Vital Signs: Last Vital Signs Temp 97.8 F 11/13/23 06:13 Pulse 62 11/13/23 06:13 Resp 17 11/13/23 06:13 BP 110/67 11/13/23 06:13 Pulse Ox 96 11/13/23 06:13 O2 Del Method Room Air 11/13/23 06:13 BMI result Body Mass Index 29.4 Const: Other: Appearance: Alert. Oriented X3. No acute distress. Eyes: Pupils equal, round and reactive to light. ENT: Pharynx normal. Neck: Normal inspection. Neck supple. No lymph nodes noted. No crepitus CVS: Normal heart rate and rhythm. Pulses normal. Normal S1 and S2 Respiratory: No respiratory distress. Breath sounds normal. No Wheezing. No rales Abdomen: Soft and nontender. No rigidity. No distention. Skin: Skin warm and dry. Normal skin color. Normal skin turgor. Extremities: No lower extremity edema. No Lacerations. No Rash Neuro: Oriented X 3. No motor deficit. No sensory deficit. Moving all extremities. No slurred speech. CN 2 through 12 grossly intact Psych: calm, cooperative, anxious Course Course Course Narrative: This is a Rapid Medical Examination (RME) performed by Sawyer Najera PA-C in triage. Full HPI, ROS, assessment and treatment plan per primary provider in the Main ED. 48 yo male with history of schizoaffective disorder, opioid use disorder, ETOH abuse who presents to the ER for insomnia for the last 3 weeks after changing his seroquel to zyprexa during a recent admission at [facility]. Endorses AH and SI with plan to OD or drink himself to . Attempted yesterday by sniffing a lot of heroin yesterday and drinking but it didn't work. Plan: labs, medically clear and will need CARE team evaluation Reevaluation(s) Reevaluation #1: I was asked to re-evaluate this patient. The patient is complaining of discomfort that he describes as a tingling or numbness or pins and needles in the right leg that he associates with a previous right ankle surgical repair. We will x-ray of the right ankle and give a dose of 1 mg of oral lorazepam. Time: 12:22 Medications Administered Generic Name Dose Route Start Last Admin Trade Name Freq PRN Reason Stop Dose Admin Baclofen 10 mg 11/13/23 09:00 11/13/23 08:19 Baclofen 10 Mg Tablet PO 10 mg DAILY ROMI Administration Bupropion HCl 75 mg 11/13/23 06:30 11/13/23 08:19 Bupropion Hcl 75 Mg Tablet PO 75 mg BID@0630,1630 ROMI Administration Buspirone HCl 5 mg 11/13/23 02:45 11/13/23 08:19 Buspirone Hcl 5 Mg Tablet PO 5 mg TID ROMI Administration Clonidine HCl 0.1 mg 11/13/23 09:00 11/13/23 08:19 Clonidine Hcl 0.1 Mg Tablet PO 0.1 mg DAILY ROMI Administration Protocol Gabapentin 200 mg 11/13/23 02:45 11/13/23 08:19 Gabapentin 100 Mg Capsule PO 200 mg TID ROMI Administration Hydroxyzine HCl 100 mg 11/13/23 11:00 11/13/23 11:17 Hydroxyzine Hcl 50 Mg Tablet PO 100 mg BID ROMI Administration Melatonin 6 mg 11/13/23 02:45 11/13/23 02:58 Melatonin 3 Mg Tablet PO 6 mg BEDTIME ROMI Administration Methadone HCl 50 mg 11/13/23 11:00 11/13/23 11:16 Methadone Hcl 20 Mg/2 Ml Oral.Conc PO 50 mg DAILY ROMI Administration Olanzapine 10 mg 11/13/23 02:45 11/13/23 08:19 Olanzapine 10 Mg Tablet PO 10 mg BID ROMI Administration Discontinued Medications Generic Name Dose Route Start Last Admin Trade Name Freq PRN Reason Stop Dose Admin Diphenhydramine HCl 50 mg 11/12/23 22:30 11/12/23 22:37 Diphenhydramine Hcl 25 Mg Capsule PO 11/12/23 22:31 50 mg ONCE ONE Administration Medical Decision Making Medical Decision Making [facility] Narrative: -all of patient's labs pending -care team consult pending -physician observation started at 21:00 Differential Diagnosis Differential Diagnoses: The differential diagnosis associated with the presentation includes (Auditory hallucinations, insomnia, delusional parasitosis) Admission/Observation Consideration of admission/observation: Escalation of care including admission/observation considered (Patient is on a Section 12, waiting to be seen by the care team to determine disposition) Lab Data 11/12/23 22:53 11/12/23 22:53 Labs: Lab Results 11/12/23 11/12/23 Range/Units 20:51 22:53 WBC 10.5 (4.8-10.8) X10*3/uL RBC 4.13 L (4.60-5.80) X10*6/uL Hgb 12.1 L (14.0-18.0) g/dl Hct 37.3 L (42.0-52.0) % MCV 90.3 (80.0-98.0) fL MCH 29.3 (27.0-33.0) pg MCHC 32.4 (31.0-36.0) g/dl RDW 14.0 (11.0-16.0) % Plt Count 161 (160-400) X10*3/uL MPV 11.5 (9.4-12.4) fL Immature Gran % (Auto) 0.5 H (0.0-0.4) % Neut % (Auto) 55.9 (45-73) % Lymph % (Auto) 31.5 (20-40) % [place] % (Auto) 10.4 (2-11) % Eos % (Auto) 1.2 (0-4) % Baso % (Auto) 0.5 (0-2) % Lymph # (Auto) 3.3 (1.2-4.9) X10*3/uL [place] # (Auto) 1.1 (0.1-1.2) X10*3/uL Eos # (Auto) 0.1 (0.0-0.4) X10*3/uL Baso # (Auto) 0.1 (0.0-0.2) X10*3/uL Abs Immat Gran (auto) 0.05 H (0.00-0.03) X10*3/uL Absolute Neuts (auto) 5.8 (2.0-8.3) x10*3/uL Absolute Nucleated RBC 0.000 (0.0-0.012) X10*3/uL Nucleated RBC % (auto) 0.0 (0.0-0.2) /100WBC Sodium 139 (135-145) mmol/L Potassium 3.8 (3.3-5.1) mmol/L Chloride 103 (96-108) mmol/L Carbon Dioxide 26 (22-29) mmol/L Anion Gap 14 (12-20) BUN 19 H (9-16) mg/dL Creatinine 0.84 (0.5-1.4) mg/dL Estim Creat Clear Calc 123.2 Estimated GFR > 60 Random Glucose 94 (60-115) mg/dL Calcium 8.8 (8.4-10.2) mg/dL Magnesium 2.4 (1.6-2.6) mg/dL Total Bilirubin 0.3 (0.0-1.0) mg/dL Direct Bilirubin 0.1 (0.0-0.5) mg/dL AST 30 (5-37) U/L ALT 12 (0-40) U/L Alkaline Phosphatase 58 (39-117) U/L Total Protein 7.4 (6.5-8.0) g/dL Albumin 4.3 (3.5-5.0) g/dL Urine Color Dark Yellow Urine Appearance Clear Urine pH 5.5 (5.0-9.0) Ur Specific [place] >= 1.030 H (1.005-1.025) Urine Protein Trace (Neg-Trace) mg/dL Urine Glucose (UA) Negative (Negative) mg/dL Urine Ketones Negative (Negative) mg/dL Urine Blood Negative (Negative) Urine Nitrite Negative (Negative) Ur Leukocyte Esterase Negative (Negative) Urine Opiates Screen POSITIVE H (Not Detect) Ur Buprenorphine Scrn Not Detected (Not Detect) ng/mL Ur Oxycodone Screen Not Detected (Not Detect) ng/mL Urine Methadone Screen Positive H (Not Detect) ng/mL Urine Fentanyl Screen POSITIVE H (Not Detect) Ur Barbiturates Screen Not Detected (Not Detect) Ur Phencyclidine Scrn Not Detected (Not Detect) Ur Amphetamines Screen Not Detected (Not Detect) U Benzodiazepines Scrn Not Detected (Not Detect) Urine Cocaine Screen POSITIVE H (Not Detect) U Marijuana (THC) Screen Not Detected (Not Detect) Ethyl Alcohol < 10 mg/dL Discharge Plan Discharge Clinical Impression: Schizoaffective disorder, Delusions of parasitosis Patient Disposition: Still a Patient Prescriptions: No Action methadone 10 mg/mL Syringe 50 mg PO DAILY Patient Comments: Verified dose with Cory Salmeron. bupropion HCl 75 mg tablet 75 mg PO BID@0630,1630 baclofen 10 mg tablet 10 mg PO DAILY buspirone 5 mg tablet 5 mg PO TID hydroxyzine pamoate 50 mg capsule 100 mg PO BID olanzapine 10 mg tablet 10 mg PO BID melatonin 3 mg tablet 6 mg PO BEDTIME clonidine HCl 0.1 mg tablet 0.1 mg PO DAILY gabapentin 100 mg capsule 200 mg PO TID Interventions: [place]son-Suicide Risk Severity Scale Last Done: 11/12/23 22:01 Print Language: Occitan
[2023-11-12 21:12] LABS: Appearance Urine Clear; Color Urine Dark Yellow; Glucose Urine UA Negative (Negative); Leukocyte Esterase Urine Negative (Negative); Nitrite Urine Negative (Negative); PH 5.5 (5.0-9.0); Specific Gravity - Urine >= 1.030 (1.005-1.025); Urine Blood Negative (Negative); Urine Ketones Negative (Negative); Urine Protein Trace mg/dL (Neg-Trace)
[2023-11-12 21:20] LABS: Amphetamine Screen Urine Not Detected (Not Detect); Barbiturates, Urine Not Detected (Not Detect); Benzodiazepines Screen Urine Not Detected (Not Detect); Buprenorphine Scr Not Detected (Not Detect); Cannabinoid Screen Urine Not Detected (Not Detect); Cocaine Screen Urine POSITIVE (Not Detect); Fentanyl, urine POSITIVE (Not Detect); Methadone Screen, Urine Positive (Not Detect); Opiate Screen Urine POSITIVE (Not Detect); Oxycodone Screen Urine Not Detected (Not Detect); Phencyclidine Screen Urine Not Detected (Not Detect)
[2023-11-12] MEDS: diphenhydrAMINE HCL 25 MG CAPSULE 50 MG PO (22:37)
[2023-11-12 23:02] LABS: MANUAL DIFF FLAG NO
[2023-11-12 23:03] LABS: Basophils Absolute Auto 0.1 X10*3/uL (0.0-0.2); Basophils Percent Auto 0.5 % (0-2); Eosinophils Absolute Auto 0.1 X10*3/uL (0.0-0.4); Eosinophils Percent Auto 1.2 % (0-4); Hematocrit 37.3 % (42.0-52.0); Hemoglobin 12.1 g/dl (14.0-18.0); Imm Gran Abs Auto 0.05 X10*3/uL (0.00-0.03); Imm Gran Pct Auto 0.5 % (0.0-0.4); Lymphocytes Absolute Auto 3.3 X10*3/uL (1.2-4.9); Lymphocytes Percent Auto 31.5 % (20-40); Mean Corpuscular HGB Conc 32.4 g/dl (31.0-36.0); Mean Corpuscular Hemoglobin 29.3 pg (27.0-33.0); Mean Corpuscular Volume 90.3 fL (80.0-98.0); Mean Platelet Volume 11.5 fL (9.4-12.4); Monocytes Absolute Auto 1.1 X10*3/uL (0.1-1.2); Monocytes Percent Auto 10.4 % (2-11); Neutrophils Absolute Auto 5.8 x10*3/uL (2.0-8.3); Neutrophils Percent Auto 55.9 % (45-73); Platelet Count 161 X10*3/uL (160-400); Red Blood Count 4.13 X10*6/uL (4.60-5.80); White Blood Count 10.5 X10*3/uL (4.8-10.8)
[2023-11-12 23:19] LABS: Alanine Aminotransferase 12 U/L (0-40); Albumin Level 4.3 g/dL (3.5-5.0); Alkaline Phosphatase 58 U/L (39-117); Anion Gap 14 (12-20); Aspartate Amino Transferase 30 U/L (5-37); Bilirubin Direct 0.1 mg/dL (0.0-0.5); Bilirubin Total 0.3 mg/dL (0.0-1.0); Blood Urea Nitrogen 19 mg/dL (9-16); Calcium 8.8 mg/dL (8.4-10.2); Carbon Dioxide 26 mmol/L (22-29); Chloride 103 mmol/L (96-108); Creatinine Clr Calc Pharmacy 123.2; Estimated Glomerular Filt Rate > 60; Ethanol < 10 mg/dL; Glucose Random 94 mg/dL (60-115); Magnesium 2.4 mg/dL (1.6-2.6); Potassium 3.8 mmol/L (3.3-5.1); Sodium 139 mmol/L (135-145); Total Protein 7.4 g/dL (6.5-8.0)
--- NOTE | 2023-11-13 | ECG_ITS ---
Test Reason : check qt interval Blood Pressure : / mmHG Vent. Rate : 059 BPM Atrial Rate : 059 BPM P-R Int : 156 ms QRS Dur : 096 ms QT Int : 442 ms P-R-T Axes : 054 068 051 degrees QTc Int : 437 ms Sinus bradycardia Otherwise normal ECG When compared with ECG of 04-MAY-2022 20:29, ST elevation now present in Lateral leads Referred By: Generic ED Physician Electronically Signed By:ILEANA HART MD
--- NOTE | 2023-11-13 00:42 | MHC.CARE ---
CARE Team made the combined decision with ED provider to not wake the pt for an assessment. Pt has gone multiple nights with no sleep and would greatly benefit from a full nights rest. Pt is on a section 12 and will be seen by the morning CARE Team crew.
--- NOTE | 2023-11-13 02:03 | PC.NURSE ---
client awoke briefly claimed legs were itchy, given ice pack and returned to bed
[2023-11-13] MEDS: busPIRone HCl 5 MG TABLET PO ×3 (02:57→21:27)
[2023-11-13] MEDS: Melatonin 3 MG TABLET 6 MG PO ×2 (02:58→21:27)
[2023-11-13] MEDS: OLANZapine 10 MG TABLET PO ×3 (02:58→21:27)
[2023-11-13] MEDS: Gabapentin 100 MG CAPSULE 200 MG PO ×2 (02:58→08:19)
[2023-11-13 06:13] VITALS: BP 110/67; PULSE 62; RESP 17; TEMP 36.6; O2SAT 96
--- NOTE | 2023-11-13 07:05 | PC.NURSE ---
Assumed care of patient at 0645. Patient is observed to be sleeping in their bed. No distress observed and breathing is even and unlabored.
[2023-11-13] MEDS: buPROPion HCL 75 MG TABLET PO ×2 (08:19→17:11)
[2023-11-13] MEDS: Baclofen 10 MG TABLET PO (08:19)
[2023-11-13] MEDS: cloNIDine HCL 0.1 MG TABLET PO (08:19)
--- NOTE | 2023-11-13 09:47 | PC.NURSE ---
Methadone Verification Dose verified. Last dose 11/11/23 at 0752 for 50mg of methadone. Confirmed by Cory Salmeron.
--- NOTE | 2023-11-13 10:19 | HE.PHANOTE ---
RE METHADONE Pharmacy received patients methadone confirmation form. Patient confirmed to get dosed with Jeannette Hawley [phone], last dosed 11/11/23 with 50 mg
[2023-11-13] MEDS: methADONE HCl 20 MG/2 ML ORAL.CONC 50 MG PO (11:16)
[2023-11-13] MEDS: hydrOXYzine HCL 50 MG TABLET 100 MG PO ×2 (11:17→21:27)
[2023-11-13] MEDS: LORazepam 1 MG TABLET PO (12:54)
[2023-11-13 15:25] VITALS: BP 116/64; PULSE 68; RESP 14; TEMP 36.8; O2SAT 96
[2023-11-13] MEDS: hydrOXYzine HCL 25 MG TABLET PO (17:58)
[2023-11-13] MEDS: Nicotine Polacrilex 2 MG GUM 4 MG BUCCAL (18:00)
[2023-11-13] MEDS: OLANZapine 5 MG TABLET PO (18:00)
--- NOTE | 2023-11-13 18:16 | PC.ADMIT ---
Cleve is a 48 yo male was admitted from [facility] ED POD on CV for treatment of SI and substance abuse. He self presented to ED reporting SI, stating he has been using IV drugs (cocaine and opiates) for days in attempt to kill himself. Per crisis report he reported that has not slept for three weeks. He also shared that he has been hallucinating bugs for eight months now and appears to have a delusion related to parasitic infestation. Reported ability to see parasites in his veins. Has a hx of inpatient admissions, last admitted to [facility] on 04/25/2222. During this admission process on M5 he was very sedated and fell asleep several times during the interview. He was calm and cooperative. Reported AH to kill people , but said that he would newer act on it. Also said that fight with girlfriend made me suicidal . Tox screen positive for opiates, Methadone, Fentanyl, Cocaine. Patient was placed on 15 min checks.
[2023-11-13 20:00] VITALS: BP 122/63; PULSE 70; RESP 18; TEMP 36.8; O2SAT 96
[2023-11-13] MEDS: traZODone HCL 100 MG TABLET PO (21:27)
[2023-11-14] VITALS (9 sets, daily range): BP systolic 108–158; BP diastolic 56–65; PULSE 66–72; RESP 16; TEMP 36.4–36.6; O2SAT 95–97; BMI 29.6
[2023-11-14] MEDS: OLANZapine 5 MG TABLET PO ×2 (01:51→12:01)
[2023-11-14] MEDS: cloNIDine HCL 0.1 MG TABLET PO ×3 (04:21→12:54)
--- NOTE | 2023-11-14 04:25 | PC.NURSE ---
Patient awake multiple times between 0100 and 0400 reporting excessive sweating, anxiety, tremors and abdominal discomfort. Vital signs: T: 97.8 HR:71 BP: 131/60 RR:18 O2:96% RA. Reached out to provider calibration technician to report signs of withdrawl and request medication. Clonidine 0.1mg Q4H PRN ordered for signs of opiate withdrawal as well as a Q4H COWS.
[2023-11-14] MEDS: buPROPion HCL 75 MG TABLET PO ×2 (06:17→16:12)
[2023-11-14] MEDS: methADONE HCl 20 MG/2 ML ORAL.CONC 50 MG PO (07:54)
[2023-11-14] MEDS: busPIRone HCl 5 MG TABLET PO ×3 (08:31→21:19)
[2023-11-14] MEDS: OLANZapine 10 MG TABLET PO ×2 (08:31→21:20)
[2023-11-14] MEDS: hydrOXYzine HCL 50 MG TABLET 100 MG PO ×2 (08:31→21:19)
[2023-11-14] MEDS: Multivitamin TABLET 1 TAB PO (08:31)
[2023-11-14] MEDS: Folic Acid 1 MG TABLET PO (08:32)
[2023-11-14] MEDS: Thiamine HCL 100 MG TABLET PO (08:32)
[2023-11-14] MEDS: Baclofen 10 MG TABLET PO (08:32)
[2023-11-14] MEDS: Nicotine Polacrilex 2 MG GUM 4 MG BUCCAL ×2 (09:26→18:07)
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
[2023-11-14] MEDS: Gabapentin 100 MG CAPSULE PO ×2 (16:12→21:19)
[2023-11-14] MEDS: LORazepam 0.5 MG TABLET PO ×2 (16:12→21:19)
[2023-11-14] MEDS: Acetaminophen 325 MG TABLET 650 MG PO (18:06)
[2023-11-14] MEDS: Permethrin 5 % Cream 60 GM TUBE 1 APPL TOPICAL (18:43)
[2023-11-14] MEDS: Melatonin 3 MG TABLET 6 MG PO (21:19)
[2023-11-14] MEDS: QUEtiapine Fumarate 200 MG TABLET PO (21:19)
[2023-11-14] MEDS: traZODone HCL 100 MG TABLET PO (21:20)
[2023-11-15] MEDS: Acetaminophen 325 MG TABLET 650 MG PO ×2 (06:10→19:09)
[2023-11-15] MEDS: hydrOXYzine HCL 25 MG TABLET PO (06:11)
[2023-11-15] MEDS: buPROPion HCL 75 MG TABLET PO ×2 (06:11→16:42)
[2023-11-15] MEDS: OLANZapine 5 MG TABLET PO ×3 (06:11→19:09)
[2023-11-15] MEDS: Nicotine Polacrilex 2 MG GUM 4 MG BUCCAL ×4 (06:14→19:08)
[2023-11-15] MEDS: methADONE HCl 20 MG/2 ML ORAL.CONC 50 MG PO (08:08)
[2023-11-15 08:35] VITALS: BP 122/58
[2023-11-15] MEDS: hydrOXYzine HCL 50 MG TABLET 100 MG PO ×2 (08:37→21:01)
[2023-11-15] MEDS: OLANZapine 10 MG TABLET PO (08:38)
[2023-11-15] MEDS: LORazepam 0.5 MG TABLET PO ×3 (08:38→21:01)
[2023-11-15] MEDS: Gabapentin 100 MG CAPSULE PO ×3 (08:38→21:01)
[2023-11-15] MEDS: busPIRone HCl 5 MG TABLET PO ×3 (08:38→21:01)
[2023-11-15] MEDS: Multivitamin TABLET 1 TAB PO (08:39)
[2023-11-15] MEDS: Baclofen 10 MG TABLET PO (08:39)
[2023-11-15] MEDS: Thiamine HCL 100 MG TABLET PO (08:39)
[2023-11-15] MEDS: Folic Acid 1 MG TABLET PO (08:39)
[2023-11-15] MEDS: Betamethasone Dip Aug 0.05% Cr 15 GM TUBE 1 APPL TOPICAL ×2 (08:41→21:02)
[2023-11-15 09:23] VITALS: BP 122/58; PULSE 66; RESP 16; TEMP 36.4; O2SAT 97
--- NOTE | 2023-11-15 10:15 | HO.PSYCHPN ---
Subjective Subjective Date of Service: 11/15/23 Reason For Visit: Depression/psychosis Subjective Notes: Conditional Voluntary Healthcare Proxy: No Guardianship: No Medical Problems Affecting Mental Status: No Interim History: Pt requesting Methadone increase. Addiction Medicine consult requested. Review of regime, will increase Olanzapine to previous dose of 20 mg bid Reports voices, visions, some causing fear and anxiety. Feeling able to work with the team to help him maintain his safety. Medication Compliance: Yes Side effects from medications: No Attending Groups: Intermittent Review of Systems Acute medical concerns: No Medical Review of Systems: unchanged Review of Systems Review of Systems Yes all other systems are reviewed and are negative Mental Status Exam Mental Status Exam Patient Appearance: Fatigued Patient Orientation: Person, Place, Time and Situation Level of Consciousness: Alert Patient Behavior: Appropriate, Talkative, Cooperative, Good Eye Contact and Crying Mood Description: Depressed and Anxious Affect Description: Anxious and Flat Patient Cognition Impaired: No Speech Pattern: Spontaneous Speech Memory Description: Episodic Impaired Hallucinations: Auditory Delusions: Paranoid Ideation and Present Depressive Symptoms: Increased Anxiety, Difficulty Sleeping, Increased Fatigue, Thoughts of /Suicide and Loss of Energy Judgement: Fair Diagnostics Vital Signs (24Hr): Vital Signs - 24 hr 11/14/23 12:52 11/14/23 12:54 11/14/23 20:45 Temperature 98 F Pulse Rate 72 66 Respiratory Rate 16 Blood Pressure 110/56 L 110/56 L 108/60 Pulse Oximetry 97 Oxygen Delivery Method Room Air 11/15/23 09:23 Temperature 97.5 F Pulse Rate 66 Respiratory Rate 16 Blood Pressure 122/58 L Pulse Oximetry 97 Oxygen Delivery Method Room Air BMI result Body Mass Index 29.6 Labs 11/12/23 22:53 11/12/23 22:53 Imaging Radiology Impressions: ITS Impressions Ankle X-Ray 11/13/23 13:10 IMPRESSION: No radiographic evidence of hardware complication. Medications Medications Current Medications Acetaminophen (Acetaminophen 325 Mg Tablet) 650 mg PO Q6H PRN PRN Reason: Headache/Pain Mild Scale (1-3) Last Admin: 11/15/23 06:10 Dose: 650 mg Al Hydroxide/Mg Hydroxide (Magnesium Hydrox/Alum Hydrox 30 Ml Oral.Susp) 30 ml PO Q6H PRN PRN Reason: Heartburn/Nausea Baclofen (Baclofen 10 Mg Tablet) 10 mg PO DAILY [facility] Last Admin: 11/15/23 08:39 Dose: 10 mg Betamethasone Dipropion Augmented (Betamethasone Dip Aug 0.05% Cr 15 Gm Tube) 1 appl TOPICAL BID [facility]; Protocol Last Admin: 11/15/23 08:41 Dose: 1 appl Bupropion HCl (Bupropion Hcl 75 Mg Tablet) 75 mg PO BID@0630,1630 [facility] Last Admin: 11/15/23 06:11 Dose: 75 mg Buspirone HCl (Buspirone Hcl 5 Mg Tablet) 5 mg PO TID [facility] Last Admin: 11/15/23 08:38 Dose: 5 mg Clonidine HCl (Clonidine Hcl 0.1 Mg Tablet) 0.1 mg PO DAILY [facility]; Protocol Last Admin: 11/14/23 08:32 Dose: 0.1 mg Clonidine HCl (Clonidine Hcl 0.1 Mg Tablet) 0.1 mg PO Q4H PRN; Protocol PRN Reason: anxiety, agitation Folic Acid (Folic Acid 1 Mg Tablet) 1 mg PO DAILY [facility] Last Admin: 11/15/23 08:39 Dose: 1 mg Gabapentin (Gabapentin 100 Mg Capsule) 100 mg PO TID [facility] Last Admin: 11/15/23 08:38 Dose: 100 mg Hydroxyzine HCl (Hydroxyzine Hcl 50 Mg Tablet) 100 mg PO BID [facility] Last Admin: 11/15/23 08:37 Dose: 100 mg Hydroxyzine HCl (Hydroxyzine Hcl 25 Mg Tablet) 25 mg PO Q6H PRN PRN Reason: Anxiety Last Admin: 11/15/23 06:11 Dose: 25 mg Lorazepam (Lorazepam 0.5 Mg Tablet) 0.5 mg PO TID [facility] Last Admin: 11/15/23 08:38 Dose: 0.5 mg Magnesium Hydroxide (Milk Of Magnesia 30 Ml Oral.Susp) 30 ml PO DAILY PRN PRN Reason: Constipation Melatonin (Melatonin 3 Mg Tablet) 6 mg PO BEDTIME [facility] Last Admin: 11/14/23 21:19 Dose: 6 mg Methadone HCl (Methadone Hcl 20 Mg/2 Ml Oral.Conc) 50 mg PO DAILY [facility] Last Admin: 11/15/23 08:08 Dose: 50 mg Multivitamins/Vitamin C (Multivitamin Tablet) 1 tab PO DAILY [facility] Last Admin: 11/15/23 08:39 Dose: 1 tab Nicotine Polacrilex (Nicotine Polacrilex 2 Mg Gum) 4 mg BUCCAL Q2H PRN PRN Reason: Nicotine Cravings Last Admin: 11/15/23 06:14 Dose: 4 mg Olanzapine (Olanzapine 10 Mg Tablet) 10 mg PO BID [facility] Last Admin: 11/15/23 08:38 Dose: 10 mg Olanzapine (Olanzapine 5 Mg Tablet) 5 mg PO TID PRN PRN Reason: agitation Last Admin: 11/15/23 06:11 Dose: 5 mg Quetiapine Fumarate (Quetiapine Fumarate 200 Mg Tablet) 200 mg PO BEDTIME [facility] Last Admin: 11/14/23 21:19 Dose: 200 mg Thiamine HCl (Thiamine Hcl 100 Mg Tablet) 100 mg PO DAILY [facility] Last Admin: 11/15/23 08:39 Dose: 100 mg Trazodone HCl (Trazodone Hcl 100 Mg Tablet) 100 mg PO BEDTIME [facility] Last Admin: 11/14/23 21:20 Dose: 100 mg Allergies Allergies Allergy/AdvReac Type Severity Reaction Status Date / Time hydrocodone [From VICODIN] AdvReac Mild nausea Verified 11/12/23 20:20 Assessment & Plan Assessment & Plan (1) Schizoaffective disorder: Status: Acute Code(s): F25.9 - Schizoaffective disorder, unspecified (2) Opioid use disorder: Status: Acute Code(s): F11.90 - Opioid use, unspecified, uncomplicated (3) Delusions of parasitosis: Status: Acute Code(s): F22 - Delusional disorders (4) Cocaine use disorder: Status: Acute Code(s): F14.10 - Cocaine abuse, uncomplicated Plan Schizoaffective Disorder, Opiate Use Disorder, Parasitosis, Cocaine Use Disorder. Admit, CV, 15 minute checks 1. Collateral contacts- [facility], [facility] 2. Adjust regime as needed 3. Evaluate sx of parasitosis 4. Discharge planning 5. Diagnostics 11/14- Addiction Medicine Consult-pt would like to discuss Methadone increases. Increase Olanzapine to 20 mg bid-experiencing voices, visions, some of which he reports are causing fear. Reason for continued inpatient stay Substantial Risk for: rapid decompensation Time Spent With Patient Time: Total time managing care of this patient today ____ minutes.
[2023-11-15 12:30] VITALS: BP 119/66
[2023-11-15] MEDS: cloNIDine HCL 0.1 MG TABLET PO (12:30)
[2023-11-15 15:00] VITALS: BP 111/56; PULSE 61; RESP 14; TEMP 36.5; O2SAT 97
[2023-11-15 17:30] VITALS: PULSE 61
[2023-11-15 20:00] VITALS: BP 123/86; PULSE 75; RESP 18; TEMP 36.4; O2SAT 97
[2023-11-15] MEDS: QUEtiapine Fumarate 200 MG TABLET PO (21:01)
[2023-11-15] MEDS: OLANZapine 10 MG TABLET 20 MG PO (21:01)
[2023-11-15] MEDS: traZODone HCL 100 MG TABLET PO (21:01)
[2023-11-15] MEDS: Melatonin 3 MG TABLET 6 MG PO (21:01)
[2023-11-16] MEDS: Acetaminophen 325 MG TABLET 650 MG PO ×2 (05:01→19:07)
[2023-11-16] MEDS: OLANZapine 5 MG TABLET PO (05:02)
[2023-11-16] MEDS: buPROPion HCL 75 MG TABLET PO ×2 (06:23→16:55)
[2023-11-16] MEDS: methADONE HCl 20 MG/2 ML ORAL.CONC 50 MG PO (07:46)
[2023-11-16 08:00] VITALS: BP 127/65; PULSE 74; RESP 16; TEMP 36.4; O2SAT 97
[2023-11-16] MEDS: Thiamine HCL 100 MG TABLET PO (08:24)
[2023-11-16] MEDS: busPIRone HCl 5 MG TABLET PO ×3 (08:24→20:10)
[2023-11-16 08:25] VITALS: BP 127/65
[2023-11-16] MEDS: Gabapentin 100 MG CAPSULE PO ×3 (08:25→20:09)
[2023-11-16] MEDS: LORazepam 0.5 MG TABLET PO ×3 (08:25→20:10)
[2023-11-16] MEDS: Multivitamin TABLET 1 TAB PO (08:25)
[2023-11-16] MEDS: Folic Acid 1 MG TABLET PO (08:25)
[2023-11-16] MEDS: cloNIDine HCL 0.1 MG TABLET PO ×2 (08:25→15:25)
[2023-11-16] MEDS: OLANZapine 10 MG TABLET 20 MG PO ×2 (08:26→20:09)
[2023-11-16] MEDS: hydrOXYzine HCL 50 MG TABLET 100 MG PO ×2 (08:26→20:10)
[2023-11-16] MEDS: Baclofen 10 MG TABLET PO (08:26)
[2023-11-16] MEDS: Nicotine Polacrilex 2 MG GUM 4 MG BUCCAL ×4 (08:31→19:09)
--- NOTE | 2023-11-16 08:57 | HO.PSYCHPN ---
Subjective Subjective Date of Service: 11/16/23 Reason For Visit: Depression/psychosis Subjective Notes: Conditional Voluntary Healthcare Proxy: No Guardianship: No Medical Problems Affecting Mental Status: No Interim History: Reports right ankle pain. Pt reports hx of surgical intervention with hardware, followed by [facility] with dual plating. Reports poor sleep-will titrate Trazodone/Seroquel Medication Compliance: Yes Side effects from medications: No Attending Groups: Intermittent Review of Systems as noted Medical Review of Systems: unchanged Review of Systems Review of Systems R ankle pain Mental Status Exam Mental Status Exam Patient Appearance: Fatigued Patient Orientation: Person, Place, Time and Situation Level of Consciousness: Alert Patient Behavior: Appropriate, Talkative, Cooperative, Good Eye Contact and Crying Mood Description: Depressed and Anxious Affect Description: Anxious and Flat Patient Cognition Impaired: No Speech Pattern: Spontaneous Speech Memory Description: Episodic Impaired Hallucinations: Auditory Delusions: Paranoid Ideation and Present Depressive Symptoms: Increased Anxiety, Difficulty Sleeping, Increased Fatigue, Thoughts of /Suicide and Loss of Energy Judgement: Fair Diagnostics Vital Signs (24Hr): Vital Signs - 24 hr 11/15/23 09:23 11/15/23 12:30 11/15/23 15:00 Temperature 97.5 F 97.7 F Pulse Rate 66 61 Respiratory Rate 16 14 Blood Pressure 122/58 L 119/66 111/56 L Pulse Oximetry 97 97 Oxygen Delivery Method Room Air Room Air 11/15/23 20:00 11/16/23 08:25 Temperature 97.5 F Pulse Rate 75 Respiratory Rate 18 Blood Pressure 123/86 127/65 Pulse Oximetry 97 Oxygen Delivery Method Room Air BMI result Body Mass Index 29.6 Labs 11/12/23 22:53 11/12/23 22:53 Imaging Radiology Impressions: ITS Impressions Ankle X-Ray 11/13/23 13:10 IMPRESSION: No radiographic evidence of hardware complication. Medications Medications Current Medications Acetaminophen (Acetaminophen 325 Mg Tablet) 650 mg PO Q6H PRN PRN Reason: Headache/Pain Mild Scale (1-3) Last Admin: 11/16/23 05:01 Dose: 650 mg Al Hydroxide/Mg Hydroxide (Magnesium Hydrox/Alum Hydrox 30 Ml Oral.Susp) 30 ml PO Q6H PRN PRN Reason: Heartburn/Nausea Baclofen (Baclofen 10 Mg Tablet) 10 mg PO DAILY [facility] Last Admin: 11/16/23 08:26 Dose: 10 mg Betamethasone Dipropion Augmented (Betamethasone Dip Aug 0.05% Cr 15 Gm Tube) 1 appl TOPICAL BID [facility]; Protocol Last Admin: 11/16/23 08:50 Dose: Not Given Bupropion HCl (Bupropion Hcl 75 Mg Tablet) 75 mg PO BID@0630,1630 [facility] Last Admin: 11/16/23 06:23 Dose: 75 mg Buspirone HCl (Buspirone Hcl 5 Mg Tablet) 5 mg PO TID [facility] Last Admin: 11/16/23 08:24 Dose: 5 mg Clonidine HCl (Clonidine Hcl 0.1 Mg Tablet) 0.1 mg PO DAILY [facility]; Protocol Last Admin: 11/16/23 08:25 Dose: 0.1 mg Clonidine HCl (Clonidine Hcl 0.1 Mg Tablet) 0.1 mg PO Q4H PRN; Protocol PRN Reason: anxiety, agitation Last Admin: 11/15/23 12:30 Dose: 0.1 mg Folic Acid (Folic Acid 1 Mg Tablet) 1 mg PO DAILY [facility] Last Admin: 11/16/23 08:25 Dose: 1 mg Gabapentin (Gabapentin 100 Mg Capsule) 100 mg PO TID [facility] Last Admin: 11/16/23 08:25 Dose: 100 mg Hydroxyzine HCl (Hydroxyzine Hcl 50 Mg Tablet) 100 mg PO BID [facility] Last Admin: 11/16/23 08:26 Dose: 100 mg Hydroxyzine HCl (Hydroxyzine Hcl 25 Mg Tablet) 25 mg PO Q6H PRN PRN Reason: Anxiety Last Admin: 11/15/23 06:11 Dose: 25 mg Lorazepam (Lorazepam 0.5 Mg Tablet) 0.5 mg PO TID [facility] Last Admin: 11/16/23 08:25 Dose: 0.5 mg Magnesium Hydroxide (Milk Of Magnesia 30 Ml Oral.Susp) 30 ml PO DAILY PRN PRN Reason: Constipation Melatonin (Melatonin 3 Mg Tablet) 6 mg PO BEDTIME [facility] Last Admin: 11/15/23 21:01 Dose: 6 mg Methadone HCl (Methadone Hcl 20 Mg/2 Ml Oral.Conc) 50 mg PO DAILY [facility] Last Admin: 11/16/23 08:52 Dose: Not Given Multivitamins/Vitamin C (Multivitamin Tablet) 1 tab PO DAILY [facility] Last Admin: 11/16/23 08:25 Dose: 1 tab Nicotine Polacrilex (Nicotine Polacrilex 2 Mg Gum) 4 mg [place] Q2H PRN PRN Reason: Nicotine Cravings Last Admin: 11/16/23 08:31 Dose: 4 mg Olanzapine (Olanzapine 5 Mg Tablet) 5 mg PO TID PRN PRN Reason: agitation Last Admin: 11/16/23 05:02 Dose: 5 mg Olanzapine (Olanzapine 10 Mg Tablet) 20 mg PO BID [facility] Last Admin: 11/16/23 08:26 Dose: 20 mg Quetiapine Fumarate (Quetiapine Fumarate 200 Mg Tablet) 200 mg PO BEDTIME [facility] Last Admin: 11/15/23 21:01 Dose: 200 mg Thiamine HCl (Thiamine Hcl 100 Mg Tablet) 100 mg PO DAILY [facility] Last Admin: 11/16/23 08:24 Dose: 100 mg Trazodone HCl (Trazodone Hcl 100 Mg Tablet) 100 mg PO BEDTIME [facility] Last Admin: 11/15/23 21:01 Dose: 100 mg Allergies Allergies Allergy/AdvReac Type Severity Reaction Status Date / Time hydrocodone [From VICODIN] AdvReac Mild nausea Verified 11/12/23 20:20 Assessment & Plan Assessment & Plan (1) Schizoaffective disorder: Status: Acute Code(s): F25.9 - Schizoaffective disorder, unspecified (2) Opioid use disorder: Status: Acute Code(s): F11.90 - Opioid use, unspecified, uncomplicated (3) Delusions of parasitosis: Status: Acute Code(s): F22 - Delusional disorders (4) Cocaine use disorder: Status: Acute Code(s): F14.10 - Cocaine abuse, uncomplicated Plan Schizoaffective Disorder, Opiate Use Disorder, Parasitosis, Cocaine Use Disorder. Admit, CV, 15 minute checks 1. Collateral contacts- [facility], [facility] 2. Adjust regime as needed 3. Evaluate sx of parasitosis 4. Discharge planning 5. Diagnostics 11/14- Addiction Medicine Consult-pt would like to discuss Methadone increases. Increase Olanzapine to 20 mg bid-experiencing voices, visions, some of which he reports are causing fear. 11/15- Increase Seroquel to 300 mg HS Increase Trazodone to 200 mg HS Reason for continued inpatient stay Substantial Risk for: rapid decompensation Time Spent With Patient Time: Total time managing care of this patient today ____ minutes.
[2023-11-16 15:23] VITALS: BP 121/59; PULSE 87; RESP 16
[2023-11-16 15:30] VITALS: PULSE 87
--- NOTE | 2023-11-16 16:13 | HO.ADDICTCON ---
History of Present Illness Date of Service: 11/16/2023 Chief Complaint: Depression/psychosis Reason for Consult: methadone dose titration Sources of Information: patient interviewed and chart reviewed HPI Narrative: Patient currently admitted to unit Engaged in treatment for OUD, methadone 50mg QD through [facility]. Requesting increase in dose. Seen on unit, awake, alert, appropriate. He reports he restarted methadone about a month ago after being off of it for a year. Dose last year was 150mg. He is requesting small dose increase to address cravings and chills. He states he does not wish to go back to previous dose. Past Psychiatric History: IP: Many Most recent [facility] Mar 2022, reports discharge on 04/19/22. OP: CHD: No current therapist Dr. Morgan for psychopharm Trials: All. Reports current regime initiated at [facility] has been most helpful. Asks to continue. Review of Systems Constitutional: Reports as per HPI Diagnostics Vital Signs (24Hr): Vital Signs - 24 hr 11/15/23 20:00 11/16/23 08:00 11/16/23 08:25 Temperature 97.5 F 97.5 F Pulse Rate 75 74 Respiratory Rate 18 16 Blood Pressure 123/86 127/65 127/65 Pulse Oximetry 97 97 Oxygen Delivery Method Room Air Room Air 11/16/23 15:23 Temperature Pulse Rate 87 Respiratory Rate 16 Blood Pressure 121/59 L Pulse Oximetry Oxygen Delivery Method BMI result Body Mass Index 29.6 Labs 11/12/23 22:53 11/12/23 22:53 Imaging Radiology Impressions: ITS Impressions Ankle X-Ray 11/13/23 13:10 IMPRESSION: No radiographic evidence of hardware complication. Mental Status Exam Mental Status Exam Patient Appearance: Appropriate Level of Consciousness: Awake, Appropriate and Alert Medications Medications Current Medications Acetaminophen (Acetaminophen 325 Mg Tablet) 650 mg PO Q6H PRN PRN Reason: Headache/Pain Mild Scale (1-3) Last Admin: 11/16/23 05:01 Dose: 650 mg Al Hydroxide/Mg Hydroxide (Magnesium Hydrox/Alum Hydrox 30 Ml Oral.Susp) 30 ml PO Q6H PRN PRN Reason: Heartburn/Nausea Baclofen (Baclofen 10 Mg Tablet) 10 mg PO DAILY [facility] Last Admin: 11/16/23 08:26 Dose: 10 mg Betamethasone Dipropion Augmented (Betamethasone Dip Aug 0.05% Cr 15 Gm Tube) 1 appl TOPICAL BID [facility]; Protocol Last Admin: 11/16/23 08:50 Dose: Not Given Bupropion HCl (Bupropion Hcl 75 Mg Tablet) 75 mg PO BID@0630,1630 [facility] Last Admin: 11/16/23 06:23 Dose: 75 mg Buspirone HCl (Buspirone Hcl 5 Mg Tablet) 5 mg PO TID [facility] Last Admin: 11/16/23 14:19 Dose: 5 mg Clonidine HCl (Clonidine Hcl 0.1 Mg Tablet) 0.1 mg PO DAILY [facility]; Protocol Last Admin: 11/16/23 08:25 Dose: 0.1 mg Clonidine HCl (Clonidine Hcl 0.1 Mg Tablet) 0.1 mg PO Q4H PRN; Protocol PRN Reason: anxiety, agitation Last Admin: 11/16/23 15:25 Dose: 0.1 mg Folic Acid (Folic Acid 1 Mg Tablet) 1 mg PO DAILY [facility] Last Admin: 11/16/23 08:25 Dose: 1 mg Gabapentin (Gabapentin 100 Mg Capsule) 100 mg PO TID [facility] Last Admin: 11/16/23 14:19 Dose: 100 mg Hydroxyzine HCl (Hydroxyzine Hcl 50 Mg Tablet) 100 mg PO BID [facility] Last Admin: 11/16/23 08:26 Dose: 100 mg Hydroxyzine HCl (Hydroxyzine Hcl 25 Mg Tablet) 25 mg PO Q6H PRN PRN Reason: Anxiety Last Admin: 11/15/23 06:11 Dose: 25 mg Lorazepam (Lorazepam 0.5 Mg Tablet) 0.5 mg PO TID [facility] Last Admin: 11/16/23 14:19 Dose: 0.5 mg Magnesium Hydroxide (Milk Of Magnesia 30 Ml Oral.Susp) 30 ml PO DAILY PRN PRN Reason: Constipation Melatonin (Melatonin 3 Mg Tablet) 6 mg PO BEDTIME [facility] Last Admin: 11/15/23 21:01 Dose: 6 mg Methadone HCl (Methadone Hcl 20 Mg/2 Ml Oral.Conc) 50 mg PO DAILY [facility] Last Admin: 11/16/23 08:52 Dose: Not Given Multivitamins/Vitamin C (Multivitamin Tablet) 1 tab PO DAILY [facility] Last Admin: 11/16/23 08:25 Dose: 1 tab Nicotine Polacrilex (Nicotine Polacrilex 2 Mg Gum) 4 mg BUCCAL Q2H PRN PRN Reason: Nicotine Cravings Last Admin: 11/16/23 15:25 Dose: 4 mg Olanzapine (Olanzapine 5 Mg Tablet) 5 mg PO TID PRN PRN Reason: agitation Last Admin: 11/16/23 05:02 Dose: 5 mg Olanzapine (Olanzapine 10 Mg Tablet) 20 mg PO BID [facility] Last Admin: 11/16/23 08:26 Dose: 20 mg Quetiapine Fumarate (Quetiapine Fumarate 200 Mg Tablet) 200 mg PO BEDTIME [facility] Last Admin: 11/15/23 21:01 Dose: 200 mg Thiamine HCl (Thiamine Hcl 100 Mg Tablet) 100 mg PO DAILY [facility] Last Admin: 11/16/23 08:24 Dose: 100 mg Trazodone HCl (Trazodone Hcl 100 Mg Tablet) 100 mg PO BEDTIME [facility] Last Admin: 11/15/23 21:01 Dose: 100 mg Allergies Allergies Allergy/AdvReac Type Severity Reaction Status Date / Time hydrocodone [From VICODIN] AdvReac Mild nausea Verified 11/12/23 20:20 Assessment & Plan Assessment & Plan (1) Opioid use disorder: Status: Acute Code(s): F11.90 - Opioid use, unspecified, uncomplicated Assessment and Plan: increase methadone to 55mg monitor for sedation follow up as requested Total time managing care of this patient today ____ minutes. PMF Past Medical History Medical History (Updated 11/14/23 @ 16:35 by Grisel Lawrence APRN) Cocaine use disorder Delusions of parasitosis Opioid use disorder Schizoaffective disorder Bursitis Surgical History Surgical History History of ankle surgery Social History Social History Household Members: Other Household Members Other:: Father Housing: House Do you presently have visiting nurse or other home services: No Alcohol intake: unknown Patient Tobacco Use Status: Never used Tobacco Use of substances other than those prescribed or required for medical reasons: Yes Substance Use Type: Crack/Cocaine and Opiates Substance Use Frequency: Recent Binge Last Used Substance: Just Prior to Admission Currently Displaying Signs/Symptoms of Drug Intoxication Withdrawal: No Any prior treatment program specific to substance use: Yes (Started Methadone at [facility]) Have you been hit, kicked, punched, or otherwise hurt by someone within the past year? If so, by whom?: No Do you feel safe in your current relationship?: Yes Is there a partner from a previous relationship who is making you feel unsafe now?: No Are you made to feel afraid or neglected: No Advance Directives: No Advance Directives Information Provided: No Do you have thoughts of harming others: None Do you have a plan to hurt others: No Plan Recently lost weight without trying: No Nutrition Risks: No Nutritional Risk Poor oral hygiene: No service: Yes Sexual orientation: Straight/Heterosexual
[2023-11-16 17:10] VITALS: BP 131/61; PULSE 83; RESP 16; TEMP 36.5; O2SAT 96
--- NOTE | 2023-11-16 17:22 | PC.NURSE ---
At approximately 1700, the patient complained to [facility] about chest pain and left arm contortion. Upon assessment, patient vital signs: BP: 131/61, HR: 83 Sa02: 96 Temp: 36.5 Pt denied shortnes of breath, dizziness, or palpitations. He reported that his arm has contracted in the past when I had an infection in 2021. The patient's L arm/hand was initially contracted with his hand twisted inward. Pt stated that he is worried that he has parasites in his arm and wants a definitive diagnosis. He also stated that he is worried that he has scabies, despite knowingly not having symptoms. I could have scabies and not have a rash or itching. Pt's hand and arm then returned to normal function and appearance.
[2023-11-16 20:00] VITALS: BP 124/57; PULSE 84; RESP 16; TEMP 36.6; O2SAT 96
[2023-11-16] MEDS: Betamethasone Dip Aug 0.05% Cr 15 GM TUBE 1 APPL TOPICAL (20:09)
[2023-11-16] MEDS: QUEtiapine Fumarate 300 MG TABLET PO (20:09)
[2023-11-16] MEDS: traZODone HCL 100 MG TABLET 200 MG PO (20:10)
[2023-11-16] MEDS: Melatonin 3 MG TABLET 6 MG PO (20:11)
[2023-11-17] MEDS: OLANZapine 5 MG TABLET PO ×3 (01:05→15:01)
[2023-11-17] MEDS: Acetaminophen 325 MG TABLET 650 MG PO (01:05)
[2023-11-17] MEDS: buPROPion HCL 75 MG TABLET PO ×2 (05:45→15:33)
[2023-11-17] MEDS: methADONE HCl 20 MG/2 ML ORAL.CONC 50 MG PO (07:50)
[2023-11-17 08:00] VITALS: BP 135/74; PULSE 75; RESP 20; TEMP 36.4; O2SAT 98
[2023-11-17] MEDS: OLANZapine 10 MG TABLET 20 MG PO ×2 (08:21→21:19)
[2023-11-17] MEDS: Thiamine HCL 100 MG TABLET PO (08:21)
[2023-11-17] MEDS: busPIRone HCl 5 MG TABLET PO (08:22)
[2023-11-17] MEDS: LORazepam 0.5 MG TABLET PO ×3 (08:22→21:19)
[2023-11-17] MEDS: hydrOXYzine HCL 50 MG TABLET 100 MG PO ×2 (08:22→21:19)
[2023-11-17] MEDS: Baclofen 10 MG TABLET PO (08:23)
[2023-11-17] MEDS: Multivitamin TABLET 1 TAB PO (08:23)
[2023-11-17] MEDS: cloNIDine HCL 0.1 MG TABLET PO ×2 (08:24→17:21)
[2023-11-17] MEDS: Folic Acid 1 MG TABLET PO (08:24)
[2023-11-17] MEDS: Gabapentin 100 MG CAPSULE PO ×3 (08:24→21:19)
[2023-11-17] MEDS: Betamethasone Dip Aug 0.05% Cr 15 GM TUBE 1 APPL TOPICAL (08:33)
[2023-11-17] MEDS: Nicotine Polacrilex 2 MG GUM 4 MG BUCCAL ×4 (08:44→17:21)
--- NOTE | 2023-11-17 12:41 | P.PNPSI_ITS ---
Subjective Subjective Date of Service: 11/17/23 Reason For Visit: Depression/psychosis Subjective Notes: Conditional Voluntary Healthcare Proxy: No Guardianship: No Medical Problems Affecting Mental Status: No Interim History: Reports he is feeling ready for a Methadone increase. Seen by addictions and will increase to 55 mg daily. Buspirone increase to 10 mg tid. COWS DC. Pt reports slow improvement with titrations. Appears sedate today. Discussed timing on titrations to avoid oversedation and mismanagement of sx control. He verbalized understanding. Medication Compliance: Yes Side effects from medications: No Attending Groups: No Review of Systems Acute medical concerns: No Medical Review of Systems: unchanged Review of Systems Review of Systems Yes all other systems are reviewed and are negative Mental Status Exam Mental Status Exam Patient Appearance: Fatigued Patient Orientation: Person, Place, Time and Situation Level of Consciousness: Alert Patient Behavior: Appropriate, Talkative, Cooperative, Good Eye Contact and Crying Mood Description: Depressed and Anxious Affect Description: Anxious and Flat Patient Cognition Impaired: No Speech Pattern: Spontaneous Speech Memory Description: Episodic Impaired Hallucinations: Auditory Delusions: Paranoid Ideation and Present Depressive Symptoms: Increased Anxiety, Difficulty Sleeping, Increased Fatigue, Thoughts of /Suicide and Loss of Energy Judgement: Fair Diagnostics Vital Signs (24Hr): Vital Signs - 24 hr 11/16/23 15:23 11/16/23 17:10 11/16/23 20:00 Temperature 97.7 F 97.9 F Pulse Rate 87 83 84 Respiratory Rate 16 16 16 Blood Pressure 121/59 L 131/61 124/57 L Pulse Oximetry 96 96 Oxygen Delivery Method Room Air Room Air 11/17/23 08:00 Temperature 97.5 F Pulse Rate 75 Respiratory Rate 20 Blood Pressure 135/74 Pulse Oximetry 98 Oxygen Delivery Method Room Air BMI result Body Mass Index 29.6 Labs 11/12/23 22:53 11/12/23 22:53 Imaging Radiology Impressions: ITS Impressions Ankle X-Ray 11/13/23 13:10 IMPRESSION: No radiographic evidence of hardware complication. Medications Medications Current Medications Acetaminophen (Acetaminophen 325 Mg Tablet) 650 mg PO Q6H PRN PRN Reason: Headache/Pain Mild Scale (1-3) Last Admin: 11/17/23 01:05 Dose: 650 mg Al Hydroxide/Mg Hydroxide (Magnesium Hydrox/Alum Hydrox 30 Ml Oral.Susp) 30 ml PO Q6H PRN PRN Reason: Heartburn/Nausea Baclofen (Baclofen 10 Mg Tablet) 10 mg PO DAILY [facility] Last Admin: 11/17/23 08:23 Dose: 10 mg Betamethasone Dipropion Augmented (Betamethasone Dip Aug 0.05% Cr 15 Gm Tube) 1 appl TOPICAL BID [facility]; Protocol Last Admin: 11/17/23 08:33 Dose: 1 appl Bupropion HCl (Bupropion Hcl 75 Mg Tablet) 75 mg PO BID@0630,1630 [facility] Last Admin: 11/17/23 05:45 Dose: 75 mg Buspirone HCl (Buspirone Hcl 10 Mg Tablet) 10 mg PO TID [facility] Clonidine HCl (Clonidine Hcl 0.1 Mg Tablet) 0.1 mg PO DAILY [facility]; Protocol Last Admin: 11/17/23 08:24 Dose: 0.1 mg Clonidine HCl (Clonidine Hcl 0.1 Mg Tablet) 0.1 mg PO Q4H PRN; Protocol PRN Reason: anxiety, agitation Last Admin: 11/16/23 15:25 Dose: 0.1 mg Folic Acid (Folic Acid 1 Mg Tablet) 1 mg PO DAILY [facility] Last Admin: 11/17/23 08:24 Dose: 1 mg Gabapentin (Gabapentin 100 Mg Capsule) 100 mg PO TID [facility] Last Admin: 11/17/23 08:24 Dose: 100 mg Hydroxyzine HCl (Hydroxyzine Hcl 50 Mg Tablet) 100 mg PO BID [facility] Last Admin: 11/17/23 08:22 Dose: 100 mg Hydroxyzine HCl (Hydroxyzine Hcl 25 Mg Tablet) 25 mg PO Q6H PRN PRN Reason: Anxiety Last Admin: 11/15/23 06:11 Dose: 25 mg Lorazepam (Lorazepam 0.5 Mg Tablet) 0.5 mg PO TID [facility] Last Admin: 11/17/23 08:22 Dose: 0.5 mg Magnesium Hydroxide (Milk Of Magnesia 30 Ml Oral.Susp) 30 ml PO DAILY PRN PRN Reason: Constipation Melatonin (Melatonin 3 Mg Tablet) 6 mg PO BEDTIME [facility] Last Admin: 11/16/23 20:11 Dose: 6 mg Methadone HCl (Methadone Hcl 20 Mg/2 Ml Oral.Conc) 55 mg PO DAILY [facility] Multivitamins/Vitamin C (Multivitamin Tablet) 1 tab PO DAILY [facility] Last Admin: 11/17/23 08:23 Dose: 1 tab Nicotine Polacrilex (Nicotine Polacrilex 2 Mg Gum) 4 mg BUCCAL Q2H PRN PRN Reason: Nicotine Cravings Last Admin: 11/17/23 11:39 Dose: 4 mg Olanzapine (Olanzapine 5 Mg Tablet) 5 mg PO TID PRN PRN Reason: agitation Last Admin: 11/17/23 05:45 Dose: 5 mg Olanzapine (Olanzapine 10 Mg Tablet) 20 mg PO BID [facility] Last Admin: 11/17/23 08:21 Dose: 20 mg Quetiapine Fumarate (Quetiapine Fumarate 300 Mg Tablet) 300 mg PO BEDTIME [facility] Last Admin: 11/16/23 20:09 Dose: 300 mg Thiamine HCl (Thiamine Hcl 100 Mg Tablet) 100 mg PO DAILY [facility] Last Admin: 11/17/23 08:21 Dose: 100 mg Trazodone HCl (Trazodone Hcl 100 Mg Tablet) 200 mg PO BEDTIME [facility] Last Admin: 11/16/23 20:10 Dose: 200 mg Allergies Allergies Allergy/AdvReac Type Severity Reaction Status Date / Time hydrocodone [From VICODIN] AdvReac Mild nausea Verified 11/12/23 20:20 Assessment & Plan Assessment & Plan (1) Opioid use disorder: Status: Acute Code(s): F11.90 - Opioid use, unspecified, uncomplicated Assessment and Plan: * increase methadone to 55mg * monitor for sedation * follow up as requested Plan 11/17/23: DC COWS Increase Buspirone to 10 mg tid Increase Methadone to 55 mg daily Reason for continued inpatient stay Substantial Risk for: rapid decompensation Time Spent With Patient Time: Total time managing care of this patient today ____ minutes.
[2023-11-17] MEDS: busPIRone HCl 10 MG TABLET PO ×2 (14:56→21:20)
[2023-11-17 17:21] VITALS: BP 122/71
[2023-11-17] MEDS: hydrOXYzine HCL 25 MG TABLET PO (18:38)
[2023-11-17 20:00] VITALS: BP 113/57; PULSE 76; RESP 16; TEMP 36.6; O2SAT 94
[2023-11-17] MEDS: QUEtiapine Fumarate 300 MG TABLET PO (21:19)
[2023-11-17] MEDS: traZODone HCL 100 MG TABLET 200 MG PO (21:19)
[2023-11-17] MEDS: Melatonin 3 MG TABLET 6 MG PO (21:19)
[2023-11-18] MEDS: OLANZapine 5 MG TABLET PO ×2 (05:11→13:23)
[2023-11-18] MEDS: Acetaminophen 325 MG TABLET 650 MG PO (05:11)
[2023-11-18] MEDS: hydrOXYzine HCL 25 MG TABLET PO ×2 (05:11→13:16)
[2023-11-18] MEDS: Nicotine Polacrilex 2 MG GUM 4 MG BUCCAL ×4 (05:12→15:24)
[2023-11-18] MEDS: methADONE HCl 20 MG/2 ML ORAL.CONC 55 MG PO (08:01)
[2023-11-18 08:46] VITALS: BP 130/64; PULSE 63; RESP 16; TEMP 36.4; O2SAT 96
[2023-11-18] MEDS: OLANZapine 10 MG TABLET 20 MG PO (08:50)
[2023-11-18] MEDS: Gabapentin 100 MG CAPSULE PO ×2 (08:51→15:43)
[2023-11-18] MEDS: hydrOXYzine HCL 50 MG TABLET 100 MG PO ×2 (08:51→20:53)
[2023-11-18] MEDS: busPIRone HCl 10 MG TABLET PO ×3 (08:51→20:54)
[2023-11-18] MEDS: LORazepam 0.5 MG TABLET PO ×3 (08:52→20:53)
[2023-11-18] MEDS: Folic Acid 1 MG TABLET PO (08:52)
[2023-11-18] MEDS: Thiamine HCL 100 MG TABLET PO (08:52)
[2023-11-18 08:53] VITALS: BP 130/64
[2023-11-18] MEDS: cloNIDine HCL 0.1 MG TABLET PO ×2 (08:53→13:16)
[2023-11-18] MEDS: Baclofen 10 MG TABLET PO (08:53)
[2023-11-18] MEDS: Multivitamin TABLET 1 TAB PO (08:55)
[2023-11-18] MEDS: Betamethasone Dip Aug 0.05% Cr 15 GM TUBE 1 APPL TOPICAL (08:55)
[2023-11-18] MEDS: buPROPion HCL 75 MG TABLET PO (15:45)
--- NOTE | 2023-11-18 17:04 | P.PNPSI_ITS ---
Subjective Subjective Date of Service: 11/18/23 Reason For Visit: Depression/psychosis Subjective Notes: Conditional Voluntary Healthcare Proxy: No Guardianship: No Medical Problems Affecting Mental Status: No Interim History: Continues to hear voices, along with sx of parasitosis. Review of regime. Appears sedate today. Medication Compliance: Yes Side effects from medications: No Attending Groups: No Review of Systems Acute medical concerns: No Medical Review of Systems: unchanged Review of Systems Review of Systems Yes all other systems are reviewed and are negative Mental Status Exam Mental Status Exam Patient Appearance: Fatigued Patient Orientation: Person, Place, Time and Situation Level of Consciousness: Alert Patient Behavior: Appropriate, Talkative, Cooperative, Good Eye Contact and Crying Mood Description: Depressed and Anxious Affect Description: Anxious and Flat Patient Cognition Impaired: No Speech Pattern: Spontaneous Speech Memory Description: Episodic Impaired Hallucinations: Auditory Delusions: Paranoid Ideation and Present Depressive Symptoms: Increased Anxiety, Difficulty Sleeping, Increased Fatigue, Thoughts of /Suicide and Loss of Energy Judgement: Fair Diagnostics Vital Signs (24Hr): Vital Signs - 24 hr 11/17/23 17:21 11/17/23 20:00 11/18/23 08:46 Temperature 97.8 F 97.6 F Pulse Rate 76 63 Respiratory Rate 16 16 Blood Pressure 122/71 113/57 L 130/64 Pulse Oximetry 94 96 Oxygen Delivery Method Room Air Room Air 11/18/23 08:53 Temperature Pulse Rate Respiratory Rate Blood Pressure 130/64 Pulse Oximetry Oxygen Delivery Method BMI result Body Mass Index 29.6 Labs 11/12/23 22:53 11/12/23 22:53 Imaging Radiology Impressions: ITS Impressions Ankle X-Ray 11/13/23 13:10 IMPRESSION: No radiographic evidence of hardware complication. Medications Medications Current Medications Acetaminophen (Acetaminophen 325 Mg Tablet) 650 mg PO Q6H PRN PRN Reason: Headache/Pain Mild Scale (1-3) Last Admin: 11/18/23 05:11 Dose: 650 mg Al Hydroxide/Mg Hydroxide (Magnesium Hydrox/Alum Hydrox 30 Ml Oral.Susp) 30 ml PO Q6H PRN PRN Reason: Heartburn/Nausea Baclofen (Baclofen 10 Mg Tablet) 10 mg PO DAILY [facility] Last Admin: 11/18/23 08:53 Dose: 10 mg Betamethasone Dipropion Augmented (Betamethasone Dip Aug 0.05% Cr 15 Gm Tube) 1 appl TOPICAL BID [facility]; Protocol Last Admin: 11/18/23 08:55 Dose: 1 appl Bupropion HCl (Bupropion Hcl 75 Mg Tablet) 75 mg PO BID@0630,1630 [facility] Last Admin: 11/18/23 15:45 Dose: 75 mg Buspirone HCl (Buspirone Hcl 10 Mg Tablet) 10 mg PO TID [facility] Last Admin: 11/18/23 15:43 Dose: 10 mg Clonidine HCl (Clonidine Hcl 0.1 Mg Tablet) 0.1 mg PO DAILY [facility]; Protocol Last Admin: 11/18/23 08:53 Dose: 0.1 mg Clonidine HCl (Clonidine Hcl 0.1 Mg Tablet) 0.1 mg PO Q4H PRN; Protocol PRN Reason: anxiety, agitation Last Admin: 11/18/23 13:16 Dose: 0.1 mg Folic Acid (Folic Acid 1 Mg Tablet) 1 mg PO DAILY [facility] Last Admin: 11/18/23 08:52 Dose: 1 mg Gabapentin (Gabapentin 100 Mg Capsule) 200 mg PO TID [facility] Haloperidol (Haloperidol 5 Mg Tablet) 5 mg PO BID PRN PRN Reason: sx of psychosis Haloperidol (Haloperidol 5 Mg Tablet) 5 mg PO BID [facility] Hydroxyzine HCl (Hydroxyzine Hcl 50 Mg Tablet) 100 mg PO BID [facility] Last Admin: 11/18/23 08:51 Dose: 100 mg Hydroxyzine HCl (Hydroxyzine Hcl 25 Mg Tablet) 25 mg PO Q6H PRN PRN Reason: Anxiety Last Admin: 11/18/23 13:16 Dose: 25 mg Lorazepam (Lorazepam 0.5 Mg Tablet) 0.5 mg PO TID [facility] Last Admin: 11/18/23 15:43 Dose: 0.5 mg Magnesium Hydroxide (Milk Of Magnesia 30 Ml Oral.Susp) 30 ml PO DAILY PRN PRN Reason: Constipation Melatonin (Melatonin 3 Mg Tablet) 6 mg PO BEDTIME [facility] Last Admin: 11/17/23 21:19 Dose: 6 mg Methadone HCl (Methadone Hcl 20 Mg/2 Ml Oral.Conc) 55 mg PO DAILY [facility] Last Admin: 11/18/23 08:01 Dose: 55 mg Multivitamins/Vitamin C (Multivitamin Tablet) 1 tab PO DAILY [facility] Last Admin: 11/18/23 08:55 Dose: 1 tab Nicotine Polacrilex (Nicotine Polacrilex 2 Mg Gum) 4 mg BUCCAL Q2H PRN PRN Reason: Nicotine Cravings Last Admin: 11/18/23 15:24 Dose: 4 mg Olanzapine (Olanzapine 10 Mg Tablet) 10 mg PO DAILY [facility] Olanzapine (Olanzapine 10 Mg Tablet) 30 mg PO BEDTIME [facility] Quetiapine Fumarate (Quetiapine Fumarate 300 Mg Tablet) 300 mg PO BEDTIME [facility] Last Admin: 11/17/23 21:19 Dose: 300 mg Thiamine HCl (Thiamine Hcl 100 Mg Tablet) 100 mg PO DAILY [facility] Last Admin: 11/18/23 08:52 Dose: 100 mg Trazodone HCl (Trazodone Hcl 100 Mg Tablet) 200 mg PO BEDTIME [facility] Last Admin: 11/17/23 21:19 Dose: 200 mg Allergies Allergies Allergy/AdvReac Type Severity Reaction Status Date / Time hydrocodone [From VICODIN] AdvReac Mild nausea Verified 11/12/23 20:20 Assessment & Plan Assessment & Plan (1) Schizoaffective disorder: Status: Acute Code(s): F25.9 - Schizoaffective disorder, unspecified (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 and 30 mg HS Increase Gabapentin to 200 mg tid Haldol 5 mg bid prn sx of psychosis Reason for continued inpatient stay Substantial Risk for: rapid decompensation Time Spent With Patient Time: Total time managing care of this patient today ____ minutes.
[2023-11-18 20:00] VITALS: BP 109/55; PULSE 76; RESP 16; TEMP 36.5; O2SAT 97
[2023-11-18] MEDS: Gabapentin 100 MG CAPSULE 200 MG PO (20:53)
[2023-11-18] MEDS: traZODone HCL 100 MG TABLET 200 MG PO (20:53)
[2023-11-18] MEDS: Melatonin 3 MG TABLET 6 MG PO (20:54)
[2023-11-18] MEDS: OLANZapine 10 MG TABLET 30 MG PO (20:54)
[2023-11-18] MEDS: HaloperidoL 5 MG TABLET PO (20:54)
[2023-11-18] MEDS: QUEtiapine Fumarate 300 MG TABLET PO (20:54)
[2023-11-19] MEDS: Acetaminophen 325 MG TABLET 650 MG PO (00:44)
[2023-11-19] MEDS: buPROPion HCL 75 MG TABLET PO ×2 (06:39→15:57)
[2023-11-19] MEDS: methADONE HCl 20 MG/2 ML ORAL.CONC 55 MG PO (07:57)
[2023-11-19 08:08] VITALS: BP 123/63; PULSE 70; RESP 16; TEMP 36; O2SAT 96
[2023-11-19] MEDS: hydrOXYzine HCL 50 MG TABLET 100 MG PO ×2 (08:32→20:29)
[2023-11-19] MEDS: Folic Acid 1 MG TABLET PO (08:32)
[2023-11-19] MEDS: busPIRone HCl 10 MG TABLET PO ×3 (08:32→20:29)
[2023-11-19] MEDS: Gabapentin 100 MG CAPSULE 200 MG PO ×3 (08:32→20:27)
[2023-11-19] MEDS: Baclofen 10 MG TABLET PO (08:32)
[2023-11-19] MEDS: Thiamine HCL 100 MG TABLET PO (08:32)
[2023-11-19] MEDS: OLANZapine 10 MG TABLET PO (08:32)
[2023-11-19] MEDS: Multivitamin TABLET 1 TAB PO (08:32)
[2023-11-19] MEDS: LORazepam 0.5 MG TABLET PO ×3 (08:33→20:29)
[2023-11-19] MEDS: HaloperidoL 5 MG TABLET PO ×2 (08:33→20:29)
[2023-11-19] MEDS: cloNIDine HCL 0.1 MG TABLET PO ×2 (08:33→13:33)
[2023-11-19] MEDS: Nicotine Polacrilex 2 MG GUM 4 MG BUCCAL ×3 (10:13→20:34)
--- NOTE | 2023-11-19 11:46 | P.PNPSI_ITS ---
Subjective Subjective Date of Service: 11/19/23 Reason For Visit: Depression/psychosis Subjective Notes: Conditional Voluntary Healthcare Proxy: No Guardianship: No Medical Problems Affecting Mental Status: No Interim History: Reports he slept 6 hours. Continues with sx of depression, anxiety, AH-whispers. Continues to believe he has scabies without hard evidence. Requests promethazine repeat treatment. Discussed interaction with a medical professional at [facility], he told me I have bladder cancer . Pt reported he had experienced blood in urine (not a current sx). Discussed differential issues, however, told pt we could begin with a urine culture if he feels this should be evaluated. He denies at this time. Medication Compliance: Yes Side effects from medications: No Attending Groups: Intermittent Review of Systems Acute medical concerns: No Medical Review of Systems: unchanged Review of Systems Review of Systems Yes all other systems are reviewed and are negative Mental Status Exam Mental Status Exam Patient Appearance: Fatigued Patient Orientation: Person, Place, Time and Situation Level of Consciousness: Alert Patient Behavior: Appropriate, Talkative, Cooperative, Good Eye Contact and Crying Mood Description: Depressed and Anxious Affect Description: Anxious and Flat Patient Cognition Impaired: No Speech Pattern: Spontaneous Speech Memory Description: Episodic Impaired Hallucinations: Auditory Delusions: Paranoid Ideation and Present Depressive Symptoms: Increased Anxiety, Difficulty Sleeping, Increased Fatigue, Thoughts of /Suicide and Loss of Energy Judgement: Fair Diagnostics Vital Signs (24Hr): Vital Signs - 24 hr 11/18/23 20:00 11/19/23 08:08 Temperature 97.7 F 96.8 F Pulse Rate 76 70 Respiratory Rate 16 16 Blood Pressure 109/55 L 123/63 Pulse Oximetry 97 96 Oxygen Delivery Method Room Air Room Air BMI result Body Mass Index 29.6 Labs 11/12/23 22:53 11/12/23 22:53 Imaging Radiology Impressions: ITS Impressions Ankle X-Ray 11/13/23 13:10 IMPRESSION: No radiographic evidence of hardware complication. Medications Medications Current Medications Acetaminophen (Acetaminophen 325 Mg Tablet) 650 mg PO Q6H PRN PRN Reason: Headache/Pain Mild Scale (1-3) Last Admin: 11/19/23 00:44 Dose: 650 mg Al Hydroxide/Mg Hydroxide (Magnesium Hydrox/Alum Hydrox 30 Ml Oral.Susp) 30 ml PO Q6H PRN PRN Reason: Heartburn/Nausea Baclofen (Baclofen 10 Mg Tablet) 10 mg PO DAILY [facility] Last Admin: 11/19/23 08:32 Dose: 10 mg Betamethasone Dipropion Augmented (Betamethasone Dip Aug 0.05% Cr 15 Gm Tube) 1 appl TOPICAL BID [facility]; Protocol Last Admin: 11/19/23 08:33 Dose: Not Given Bupropion HCl (Bupropion Hcl 75 Mg Tablet) 75 mg PO BID@0630,1630 [facility] Last Admin: 11/19/23 06:39 Dose: 75 mg Buspirone HCl (Buspirone Hcl 10 Mg Tablet) 10 mg PO TID [facility] Last Admin: 11/19/23 08:32 Dose: 10 mg Clonidine HCl (Clonidine Hcl 0.1 Mg Tablet) 0.1 mg PO DAILY [facility]; Protocol Last Admin: 11/19/23 08:33 Dose: 0.1 mg Clonidine HCl (Clonidine Hcl 0.1 Mg Tablet) 0.1 mg PO Q4H PRN; Protocol PRN Reason: anxiety, agitation Last Admin: 11/18/23 13:16 Dose: 0.1 mg Folic Acid (Folic Acid 1 Mg Tablet) 1 mg PO DAILY [facility] Last Admin: 11/19/23 08:32 Dose: 1 mg Gabapentin (Gabapentin 100 Mg Capsule) 200 mg PO TID [facility] Last Admin: 11/19/23 08:32 Dose: 200 mg Haloperidol (Haloperidol 5 Mg Tablet) 5 mg PO BID PRN PRN Reason: sx of psychosis Haloperidol (Haloperidol 5 Mg Tablet) 5 mg PO BID [facility] Last Admin: 11/19/23 08:33 Dose: 5 mg Hydroxyzine HCl (Hydroxyzine Hcl 50 Mg Tablet) 100 mg PO BID [facility] Last Admin: 11/19/23 08:32 Dose: 100 mg Hydroxyzine HCl (Hydroxyzine Hcl 25 Mg Tablet) 25 mg PO Q6H PRN PRN Reason: Anxiety Last Admin: 11/18/23 13:16 Dose: 25 mg Lorazepam (Lorazepam 0.5 Mg Tablet) 0.5 mg PO TID [facility] Last Admin: 11/19/23 08:33 Dose: 0.5 mg Magnesium Hydroxide (Milk Of Magnesia 30 Ml Oral.Susp) 30 ml PO DAILY PRN PRN Reason: Constipation Melatonin (Melatonin 3 Mg Tablet) 6 mg PO BEDTIME [facility] Last Admin: 11/18/23 20:54 Dose: 6 mg Methadone HCl (Methadone Hcl 20 Mg/2 Ml Oral.Conc) 55 mg PO DAILY [facility] Last Admin: 11/19/23 07:57 Dose: 55 mg Multivitamins/Vitamin C (Multivitamin Tablet) 1 tab PO DAILY [facility] Last Admin: 11/19/23 08:32 Dose: 1 tab Nicotine Polacrilex (Nicotine Polacrilex 2 Mg Gum) 4 mg BUCCAL Q2H PRN PRN Reason: Nicotine Cravings Last Admin: 11/19/23 10:13 Dose: 4 mg Olanzapine (Olanzapine 10 Mg Tablet) 10 mg PO DAILY [facility] Last Admin: 11/19/23 08:32 Dose: 10 mg Olanzapine (Olanzapine 10 Mg Tablet) 30 mg PO BEDTIME [facility] Last Admin: 11/18/23 20:54 Dose: 30 mg Quetiapine Fumarate (Quetiapine Fumarate 300 Mg Tablet) 300 mg PO BEDTIME [facility] Last Admin: 11/18/23 20:54 Dose: 300 mg Thiamine HCl (Thiamine Hcl 100 Mg Tablet) 100 mg PO DAILY [facility] Last Admin: 11/19/23 08:32 Dose: 100 mg Trazodone HCl (Trazodone Hcl 100 Mg Tablet) 200 mg PO BEDTIME [facility] Last Admin: 11/18/23 20:53 Dose: 200 mg Allergies Allergies Allergy/AdvReac Type Severity Reaction Status Date / Time hydrocodone [From VICODIN] AdvReac Mild nausea Verified 11/12/23 20:20 Assessment & Plan Assessment & Plan (1) Schizoaffective disorder: Status: Acute Code(s): F25.9 - Schizoaffective disorder, unspecified (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 and 30 mg HS Increase Gabapentin to 200 mg tid Haldol 5 mg bid prn sx of psychosis 11/18: Promethazine x 1 skin rx. Reason for continued inpatient stay Substantial Risk for: rapid decompensation Time Spent With Patient Time: Total time managing care of this patient today ____ minutes.
[2023-11-19 13:25] VITALS: BP 107/61; PULSE 78
[2023-11-19] MEDS: hydrOXYzine HCL 25 MG TABLET PO (13:33)
[2023-11-19] MEDS: traZODone HCL 100 MG TABLET 200 MG PO (20:27)
[2023-11-19] MEDS: QUEtiapine Fumarate 300 MG TABLET PO (20:27)
[2023-11-19] MEDS: Melatonin 3 MG TABLET 6 MG PO (20:27)
[2023-11-19] MEDS: OLANZapine 10 MG TABLET 30 MG PO (20:28)
[2023-11-19 21:58] VITALS: RESP 16
[2023-11-20] MEDS: buPROPion HCL 75 MG TABLET PO ×2 (06:00→16:57)
[2023-11-20] MEDS: Acetaminophen 325 MG TABLET 650 MG PO ×2 (06:00→21:28)
[2023-11-20 06:01] VITALS: BP 112/60
[2023-11-20] MEDS: cloNIDine HCL 0.1 MG TABLET PO ×2 (06:01→08:57)
[2023-11-20 08:00] VITALS: BP 99/58; PULSE 75; RESP 16; TEMP 36.4; O2SAT 99
[2023-11-20] MEDS: methADONE HCl 20 MG/2 ML ORAL.CONC 55 MG PO (08:03)
[2023-11-20] MEDS: busPIRone HCl 10 MG TABLET PO ×3 (08:56→21:20)
[2023-11-20] MEDS: Thiamine HCL 100 MG TABLET PO (08:56)
[2023-11-20] MEDS: hydrOXYzine HCL 50 MG TABLET 100 MG PO ×2 (08:56→21:21)
[2023-11-20] MEDS: Gabapentin 100 MG CAPSULE 200 MG PO ×3 (08:56→21:20)
[2023-11-20 08:57] VITALS: BP 99/58
[2023-11-20] MEDS: Folic Acid 1 MG TABLET PO (08:57)
[2023-11-20] MEDS: Multivitamin TABLET 1 TAB PO (08:57)
[2023-11-20] MEDS: LORazepam 0.5 MG TABLET PO ×3 (08:57→21:24)
[2023-11-20] MEDS: HaloperidoL 5 MG TABLET PO ×3 (08:57→21:20)
[2023-11-20] MEDS: OLANZapine 10 MG TABLET PO (08:57)
[2023-11-20] MEDS: Baclofen 10 MG TABLET PO (08:57)
[2023-11-20] MEDS: Nicotine Polacrilex 2 MG GUM 4 MG BUCCAL ×3 (09:36→18:15)
--- NOTE | 2023-11-20 10:28 | HO.PSYCHPN ---
Subjective Subjective Date of Service: 11/20/23 Reason For Visit: Depression/psychosis Subjective Notes: Conditional Voluntary Healthcare Proxy: No Guardianship: No Medical Problems Affecting Mental Status: No Interim History: Continues to report poor sleep quality. Review of medications/symptoms. Medication Compliance: Yes Side effects from medications: No Attending Groups: Intermittent Review of Systems Acute medical concerns: No Medical Review of Systems: unchanged Mental Status Exam Mental Status Exam Patient Appearance: Fatigued Patient Orientation: Person, Place, Time and Situation Level of Consciousness: Alert Patient Behavior: Appropriate, Talkative, Cooperative, Good Eye Contact and Crying Mood Description: Depressed and Anxious Affect Description: Anxious and Flat Patient Cognition Impaired: No Speech Pattern: Spontaneous Speech Memory Description: Episodic Impaired Hallucinations: Auditory Delusions: Paranoid Ideation and Present Depressive Symptoms: Increased Anxiety, Difficulty Sleeping, Increased Fatigue, Thoughts of /Suicide and Loss of Energy Judgement: Fair Diagnostics Vital Signs (24Hr): Vital Signs - 24 hr 11/19/23 13:25 11/19/23 21:58 11/20/23 06:01 Temperature Pulse Rate 78 Respiratory Rate 16 Blood Pressure 107/61 112/60 Pulse Oximetry Oxygen Delivery Method 11/20/23 08:00 11/20/23 08:57 Temperature 97.5 F Pulse Rate 75 Respiratory Rate 16 Blood Pressure 99/58 L 99/58 L Pulse Oximetry 99 Oxygen Delivery Method Room Air BMI result Body Mass Index 29.6 Labs 11/12/23 22:53 11/12/23 22:53 Imaging Radiology Impressions: ITS Impressions Ankle X-Ray 11/13/23 13:10 IMPRESSION: No radiographic evidence of hardware complication. Medications Medications Current Medications Acetaminophen (Acetaminophen 325 Mg Tablet) 650 mg PO Q6H PRN PRN Reason: Headache/Pain Mild Scale (1-3) Last Admin: 11/20/23 06:00 Dose: 650 mg Al Hydroxide/Mg Hydroxide (Magnesium Hydrox/Alum Hydrox 30 Ml Oral.Susp) 30 ml PO Q6H PRN PRN Reason: Heartburn/Nausea Baclofen (Baclofen 10 Mg Tablet) 10 mg PO DAILY [facility] Last Admin: 11/20/23 08:57 Dose: 10 mg Betamethasone Dipropion Augmented (Betamethasone Dip Aug 0.05% Cr 15 Gm Tube) 1 appl TOPICAL BID [facility]; Protocol Last Admin: 11/20/23 10:04 Dose: Not Given Bupropion HCl (Bupropion Hcl 75 Mg Tablet) 75 mg PO BID@0630,1630 [facility] Last Admin: 11/20/23 06:00 Dose: 75 mg Buspirone HCl (Buspirone Hcl 10 Mg Tablet) 10 mg PO TID [facility] Last Admin: 11/20/23 08:56 Dose: 10 mg Clonidine HCl (Clonidine Hcl 0.1 Mg Tablet) 0.1 mg PO DAILY [facility]; Protocol Last Admin: 11/20/23 08:57 Dose: 0.1 mg Clonidine HCl (Clonidine Hcl 0.1 Mg Tablet) 0.1 mg PO Q4H PRN; Protocol PRN Reason: anxiety, agitation Last Admin: 11/20/23 06:01 Dose: 0.1 mg Folic Acid (Folic Acid 1 Mg Tablet) 1 mg PO DAILY [facility] Last Admin: 11/20/23 08:57 Dose: 1 mg Gabapentin (Gabapentin 100 Mg Capsule) 200 mg PO TID [facility] Last Admin: 11/20/23 08:56 Dose: 200 mg Haloperidol (Haloperidol 5 Mg Tablet) 5 mg PO BID PRN PRN Reason: sx of psychosis Haloperidol (Haloperidol 5 Mg Tablet) 5 mg PO BID [facility] Last Admin: 11/20/23 08:57 Dose: 5 mg Hydroxyzine HCl (Hydroxyzine Hcl 50 Mg Tablet) 100 mg PO BID [facility] Last Admin: 11/20/23 08:56 Dose: 100 mg Hydroxyzine HCl (Hydroxyzine Hcl 25 Mg Tablet) 25 mg PO Q6H PRN PRN Reason: Anxiety Last Admin: 11/19/23 13:33 Dose: 25 mg Lorazepam (Lorazepam 0.5 Mg Tablet) 0.5 mg PO TID [facility] Last Admin: 11/20/23 08:57 Dose: 0.5 mg Magnesium Hydroxide (Milk Of Magnesia 30 Ml Oral.Susp) 30 ml PO DAILY PRN PRN Reason: Constipation Melatonin (Melatonin 3 Mg Tablet) 6 mg PO BEDTIME [facility] Last Admin: 11/19/23 20:27 Dose: 6 mg Methadone HCl (Methadone Hcl 20 Mg/2 Ml Oral.Conc) 55 mg PO DAILY [facility] Last Admin: 11/20/23 08:03 Dose: 55 mg Multivitamins/Vitamin C (Multivitamin Tablet) 1 tab PO DAILY [facility] Last Admin: 11/20/23 08:57 Dose: 1 tab Nicotine Polacrilex (Nicotine Polacrilex 2 Mg Gum) 4 mg BUCCAL Q2H PRN PRN Reason: Nicotine Cravings Last Admin: 11/20/23 09:36 Dose: 4 mg Olanzapine (Olanzapine 10 Mg Tablet) 10 mg PO DAILY [facility] Last Admin: 11/20/23 08:57 Dose: 10 mg Olanzapine (Olanzapine 10 Mg Tablet) 30 mg PO BEDTIME [facility] Last Admin: 11/19/23 20:28 Dose: 30 mg Quetiapine Fumarate (Quetiapine Fumarate 300 Mg Tablet) 300 mg PO BEDTIME [facility] Last Admin: 11/19/23 20:27 Dose: 300 mg Thiamine HCl (Thiamine Hcl 100 Mg Tablet) 100 mg PO DAILY [facility] Last Admin: 11/20/23 08:56 Dose: 100 mg Trazodone HCl (Trazodone Hcl 100 Mg Tablet) 200 mg PO BEDTIME [facility] Last Admin: 11/19/23 20:27 Dose: 200 mg Allergies Allergies Allergy/AdvReac Type Severity Reaction Status Date / Time hydrocodone [From VICODIN] AdvReac Mild nausea Verified 11/12/23 20:20 Assessment & Plan Assessment & Plan (1) Schizoaffective disorder: Status: Acute Code(s): F25.9 - Schizoaffective disorder, unspecified (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 and 30 mg HS Increase Gabapentin to 200 mg tid Haldol 5 mg bid prn sx of psychosis 11/19: Continue tx. Reason for continued inpatient stay Substantial Risk for: rapid decompensation Time Spent With Patient Time: Total time managing care of this patient today ____ minutes.
--- NOTE | 2023-11-20 11:52 | PC.NURSE ---
Pt requested to retrieve number from cell phone, this RN monitored pt during number retrieval. Pt calm and cooperative, turned off phone and returned to RN without issue. Phone returned to storage closet on unit.
[2023-11-20] MEDS: hydrOXYzine HCL 25 MG TABLET PO ×2 (11:55→17:36)
[2023-11-20 20:00] VITALS: BP 126/59; PULSE 73; RESP 15; TEMP 35.9; O2SAT 97
[2023-11-20] MEDS: OLANZapine 10 MG TABLET 30 MG PO (21:21)
[2023-11-20] MEDS: traZODone HCL 100 MG TABLET 200 MG PO (21:21)
[2023-11-20] MEDS: Melatonin 3 MG TABLET 6 MG PO (21:22)
[2023-11-20] MEDS: Betamethasone Dip Aug 0.05% Cr 15 GM TUBE 1 APPL TOPICAL (21:28)
[2023-11-21] MEDS: Acetaminophen 325 MG TABLET 650 MG PO (03:46)
[2023-11-21] MEDS: hydrOXYzine HCL 25 MG TABLET PO (03:46)
[2023-11-21] MEDS: buPROPion HCL 75 MG TABLET PO (06:20)
[2023-11-21] MEDS: methADONE HCl 20 MG/2 ML ORAL.CONC 55 MG PO (08:04)
[2023-11-21 08:30] VITALS: BP 126/61; PULSE 6; RESP 18; TEMP 36.3; O2SAT 97
[2023-11-21] MEDS: Gabapentin 100 MG CAPSULE 200 MG PO ×3 (08:31→20:51)
[2023-11-21] MEDS: Baclofen 10 MG TABLET PO (08:31)
[2023-11-21] MEDS: Multivitamin TABLET 1 TAB PO (08:31)
[2023-11-21] MEDS: busPIRone HCl 10 MG TABLET PO ×3 (08:31→20:53)
[2023-11-21] MEDS: Folic Acid 1 MG TABLET PO (08:31)
[2023-11-21] MEDS: Thiamine HCL 100 MG TABLET PO (08:31)
[2023-11-21] MEDS: LORazepam 0.5 MG TABLET PO (08:31)
[2023-11-21 08:32] VITALS: BP 126/61
[2023-11-21] MEDS: hydrOXYzine HCL 50 MG TABLET 100 MG PO ×2 (08:32→20:51)
[2023-11-21] MEDS: cloNIDine HCL 0.1 MG TABLET PO ×2 (08:32→16:46)
[2023-11-21] MEDS: HaloperidoL 5 MG TABLET PO ×2 (08:32→10:22)
[2023-11-21] MEDS: Nicotine Polacrilex 2 MG GUM 4 MG BUCCAL ×3 (09:03→16:47)
[2023-11-21] MEDS: OLANZapine 10 MG TABLET PO ×3 (09:04→16:44)
[2023-11-21] MEDS: Betamethasone Dip Aug 0.05% Cr 15 GM TUBE 1 APPL TOPICAL (09:30)
--- NOTE | 2023-11-21 10:54 | HO.PSYCHPN ---
Subjective Subjective Date of Service: 11/21/23 Reason For Visit: Depression/psychosis Subjective Notes: Conditional Voluntary Healthcare Proxy: No Guardianship: No Medical Problems Affecting Mental Status: No Interim History: Pt with several requests regarding meds and symptoms today. Reviewed regime and changes made. Looking at 2 [employer] programs, [place] [facility] and [email or web address] Thinking about the loss of ex- as one of the main rationales for depressive sx currently. Medication Compliance: Yes Side effects from medications: No Attending Groups: Intermittent Review of Systems Acute medical concerns: No Medical Review of Systems: unchanged Review of Systems Review of Systems Yes all other systems are reviewed and are negative Mental Status Exam Mental Status Exam Patient Appearance: Fatigued Patient Orientation: Person, Place, Time and Situation Level of Consciousness: Alert Patient Behavior: Appropriate, Talkative, Cooperative and Good Eye Contact Mood Description: Depressed and Anxious Affect Description: Depressed, Anxious and Flat Patient Cognition Impaired: No Ability to Follow Directions: Good Speech Pattern: Spontaneous Speech Memory Description: Episodic Impaired Hallucinations: Auditory Delusions: Paranoid Ideation and Present Thought Process: Distracted and Rumination Thought Content: positive for Perseveration Depressive Symptoms: Increased Anxiety, Difficulty Sleeping, Increased Fatigue and Loss of Energy Judgement: Fair Diagnostics Vital Signs (24Hr): Vital Signs - 24 hr 11/20/23 20:00 11/21/23 08:30 11/21/23 08:32 Temperature 96.6 F L 97.4 F Pulse Rate 73 6 L Respiratory Rate 15 18 Blood Pressure 126/59 L 126/61 126/61 Pulse Oximetry 97 97 Oxygen Delivery Method Room Air BMI result Body Mass Index 29.6 Labs 11/12/23 22:53 11/12/23 22:53 Imaging Radiology Impressions: ITS Impressions Ankle X-Ray 11/13/23 13:10 IMPRESSION: No radiographic evidence of hardware complication. Medications Medications Current Medications Acetaminophen (Acetaminophen 325 Mg Tablet) 650 mg PO Q6H PRN PRN Reason: Headache/Pain Mild Scale (1-3) Last Admin: 11/21/23 03:46 Dose: 650 mg Al Hydroxide/Mg Hydroxide (Magnesium Hydrox/Alum Hydrox 30 Ml Oral.Susp) 30 ml PO Q6H PRN PRN Reason: Heartburn/Nausea Baclofen (Baclofen 10 Mg Tablet) 10 mg PO DAILY [facility] Last Admin: 11/21/23 08:31 Dose: 10 mg Betamethasone Dipropion Augmented (Betamethasone Dip Aug 0.05% Cr 15 Gm Tube) 1 appl TOPICAL BID [facility]; Protocol Last Admin: 11/21/23 09:30 Dose: 1 appl Bupropion HCl (Bupropion Hcl 75 Mg Tablet) 75 mg PO BID@0630,1630 [facility] Last Admin: 11/21/23 06:20 Dose: 75 mg Buspirone HCl (Buspirone Hcl 10 Mg Tablet) 10 mg PO TID [facility] Last Admin: 11/21/23 08:31 Dose: 10 mg Clonidine HCl (Clonidine Hcl 0.1 Mg Tablet) 0.1 mg PO DAILY [facility]; Protocol Last Admin: 11/21/23 08:32 Dose: 0.1 mg Clonidine HCl (Clonidine Hcl 0.1 Mg Tablet) 0.1 mg PO Q4H PRN; Protocol PRN Reason: anxiety, agitation Last Admin: 11/20/23 06:01 Dose: 0.1 mg Folic Acid (Folic Acid 1 Mg Tablet) 1 mg PO DAILY [facility] Last Admin: 11/21/23 08:31 Dose: 1 mg Gabapentin (Gabapentin 100 Mg Capsule) 200 mg PO TID [facility] Last Admin: 11/21/23 08:31 Dose: 200 mg Haloperidol (Haloperidol 5 Mg Tablet) 5 mg PO BID PRN PRN Reason: sx of psychosis Last Admin: 11/21/23 10:22 Dose: 5 mg Haloperidol (Haloperidol 5 Mg Tablet) 5 mg PO BID [facility] Last Admin: 11/21/23 08:32 Dose: 5 mg Hydroxyzine HCl (Hydroxyzine Hcl 50 Mg Tablet) 100 mg PO BID [facility] Last Admin: 11/21/23 08:32 Dose: 100 mg Hydroxyzine HCl (Hydroxyzine Hcl 25 Mg Tablet) 25 mg PO Q6H PRN PRN Reason: Anxiety Last Admin: 11/21/23 03:46 Dose: 25 mg Lorazepam (Lorazepam 0.5 Mg Tablet) 0.5 mg PO TID [facility] Last Admin: 11/21/23 08:31 Dose: 0.5 mg Magnesium Hydroxide (Milk Of Magnesia 30 Ml Oral.Susp) 30 ml PO DAILY PRN PRN Reason: Constipation Melatonin (Melatonin 3 Mg Tablet) 6 mg PO BEDTIME [facility] Last Admin: 11/20/23 21:22 Dose: 6 mg Methadone HCl (Methadone Hcl 20 Mg/2 Ml Oral.Conc) 55 mg PO DAILY [facility] Last Admin: 11/21/23 08:04 Dose: 55 mg Multivitamins/Vitamin C (Multivitamin Tablet) 1 tab PO DAILY [facility] Last Admin: 11/21/23 08:31 Dose: 1 tab Nicotine Polacrilex (Nicotine Polacrilex 2 Mg Gum) 4 mg BUCCAL Q2H PRN PRN Reason: Nicotine Cravings Last Admin: 11/21/23 09:03 Dose: 4 mg Olanzapine (Olanzapine 10 Mg Tablet) 10 mg PO DAILY [facility] Last Admin: 11/21/23 09:04 Dose: 10 mg Olanzapine (Olanzapine 10 Mg Tablet) 30 mg PO BEDTIME [facility] Last Admin: 11/20/23 21:21 Dose: 30 mg Thiamine HCl (Thiamine Hcl 100 Mg Tablet) 100 mg PO DAILY [facility] Last Admin: 11/21/23 08:31 Dose: 100 mg Trazodone HCl (Trazodone Hcl 100 Mg Tablet) 200 mg PO BEDTIME [facility] Last Admin: 11/20/23 21:21 Dose: 200 mg Allergies Allergies Allergy/AdvReac Type Severity Reaction Status Date / Time hydrocodone [From VICODIN] AdvReac Mild nausea Verified 11/12/23 20:20 Assessment & Plan Assessment & Plan (1) Schizoaffective disorder: Status: Acute Code(s): F25.9 - Schizoaffective disorder, unspecified (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 and 30 mg HS Increase Gabapentin to 200 mg tid Haldol 5 mg bid prn sx of psychosis 11/20: Change Lorazepam to Klonopin Continue Haldol prn Discontinue Olanzapine scheduled dosing, continue prn Restart Quetiapine 400 mg HS Reason for continued inpatient stay Substantial Risk for: rapid decompensation Time Spent With Patient Time: Total time managing care of this patient today ____ minutes.
[2023-11-21] MEDS: clonazePAM 0.5 MG TABLET PO ×2 (13:59→20:52)
[2023-11-21 16:46] VITALS: BP 126/66
[2023-11-21 20:00] VITALS: BP 99/52; PULSE 72; TEMP 36.4; O2SAT 96
[2023-11-21] MEDS: traZODone HCL 100 MG TABLET 200 MG PO (20:52)
[2023-11-21] MEDS: QUEtiapine Fumarate 400 MG TABLET PO (20:52)
[2023-11-21] MEDS: Melatonin 3 MG TABLET 6 MG PO (20:52)
[2023-11-22] MEDS: Acetaminophen 325 MG TABLET 650 MG PO (05:20)
[2023-11-22] MEDS: OLANZapine 10 MG TABLET PO ×3 (05:20→16:23)
[2023-11-22] MEDS: Nicotine Polacrilex 2 MG GUM 4 MG BUCCAL ×5 (05:21→20:31)
[2023-11-22] MEDS: methADONE HCl 20 MG/2 ML ORAL.CONC 55 MG PO (07:59)
[2023-11-22 08:20] VITALS: BP 130/67; PULSE 94; RESP 17; TEMP 36.1; O2SAT 98
[2023-11-22] MEDS: busPIRone HCl 10 MG TABLET PO ×3 (08:36→20:31)
[2023-11-22] MEDS: Gabapentin 100 MG CAPSULE 200 MG PO ×3 (08:36→20:30)
[2023-11-22 08:37] VITALS: BP 130/67
[2023-11-22] MEDS: clonazePAM 0.5 MG TABLET PO ×3 (08:37→20:32)
[2023-11-22] MEDS: Multivitamin TABLET 1 TAB PO (08:37)
[2023-11-22] MEDS: Folic Acid 1 MG TABLET PO (08:37)
[2023-11-22] MEDS: cloNIDine HCL 0.1 MG TABLET PO ×3 (08:37→20:32)
[2023-11-22] MEDS: Baclofen 10 MG TABLET PO (08:37)
[2023-11-22] MEDS: hydrOXYzine HCL 50 MG TABLET 100 MG PO ×2 (08:38→20:32)
[2023-11-22] MEDS: Thiamine HCL 100 MG TABLET PO (08:38)
[2023-11-22] MEDS: buPROPion HCl XL 150 MG TAB.ER.24H PO (08:38)
[2023-11-22] MEDS: Betamethasone Dip Aug 0.05% Cr 15 GM TUBE 1 APPL TOPICAL (08:39)
[2023-11-22 13:10] VITALS: BP 113/58
[2023-11-22] MEDS: hydrOXYzine HCL 25 MG TABLET PO (14:37)
--- NOTE | 2023-11-22 18:04 | HO.PSYCHPN ---
Subjective Subjective Date of Service: 11/22/23 Reason For Visit: Depression/psychosis Interim History: met with pt; discussed with team pt says feeling better; no AVH, no SI; no references to delusional topics talks about dysfunctional relationship with girlfriend; pt wants to move on but finds it difficult to extricate himself. Wants to be sober and her continued substance abusse is pushing him away. Pt finds meds helpful Mental Status Exam Mental Status Exam Patient Appearance: Fatigued Patient Orientation: Person, Place, Time and Situation Level of Consciousness: Alert Patient Behavior: Appropriate, Talkative, Cooperative and Good Eye Contact Mood Description: Depressed and Anxious Affect Description: Depressed, Anxious and Flat Patient Cognition Impaired: No Ability to Follow Directions: Good Speech Pattern: Spontaneous Speech Memory Description: Episodic Impaired Hallucinations: None Delusions: Present (not disclosed) Thought Process: Distracted and Rumination Thought Content: positive for Perseveration Depressive Symptoms: Increased Anxiety, Difficulty Sleeping, Increased Fatigue and Loss of Energy Judgement: Fair Diagnostics Vital Signs (24Hr): Vital Signs - 24 hr 11/21/23 20:00 11/22/23 08:20 11/22/23 08:37 Temperature 97.6 F 96.9 F Pulse Rate 72 94 Respiratory Rate 17 Blood Pressure 99/52 L 130/67 130/67 Pulse Oximetry 96 98 Oxygen Delivery Method Room Air Room Air 11/22/23 13:10 Temperature Pulse Rate Respiratory Rate Blood Pressure 113/58 L Pulse Oximetry Oxygen Delivery Method BMI result Body Mass Index 29.6 Labs 11/12/23 22:53 11/12/23 22:53 Imaging Radiology Impressions: ITS Impressions Ankle X-Ray 11/13/23 13:10 IMPRESSION: No radiographic evidence of hardware complication. Medications Medications Current Medications Acetaminophen (Acetaminophen 325 Mg Tablet) 650 mg PO Q6H PRN PRN Reason: Headache/Pain Mild Scale (1-3) Last Admin: 11/22/23 05:20 Dose: 650 mg Al Hydroxide/Mg Hydroxide (Magnesium Hydrox/Alum Hydrox 30 Ml Oral.Susp) 30 ml PO Q6H PRN PRN Reason: Heartburn/Nausea Baclofen (Baclofen 10 Mg Tablet) 10 mg PO DAILY [facility] Last Admin: 11/22/23 08:37 Dose: 10 mg Betamethasone Dipropion Augmented (Betamethasone Dip Aug 0.05% Cr 15 Gm Tube) 1 appl TOPICAL BID [facility]; Protocol Last Admin: 11/22/23 08:39 Dose: 1 appl Bupropion HCl (Bupropion Hcl Xl 150 Mg Tab.Er.24h) 150 mg PO DAILY [facility] Last Admin: 11/22/23 08:38 Dose: 150 mg Buspirone HCl (Buspirone Hcl 10 Mg Tablet) 10 mg PO TID [facility] Last Admin: 11/22/23 14:35 Dose: 10 mg Clonazepam (Clonazepam 0.5 Mg Tablet) 0.5 mg PO TID [facility] Last Admin: 11/22/23 14:35 Dose: 0.5 mg Clonidine HCl (Clonidine Hcl 0.1 Mg Tablet) 0.1 mg PO Q4H PRN; Protocol PRN Reason: anxiety, agitation Last Admin: 11/22/23 13:10 Dose: 0.1 mg Clonidine HCl (Clonidine Hcl 0.1 Mg Tablet) 0.1 mg PO BID [facility]; Protocol Folic Acid (Folic Acid 1 Mg Tablet) 1 mg PO DAILY [facility] Last Admin: 11/22/23 08:37 Dose: 1 mg Gabapentin (Gabapentin 100 Mg Capsule) 200 mg PO TID [facility] Last Admin: 11/22/23 14:35 Dose: 200 mg Haloperidol (Haloperidol 5 Mg Tablet) 5 mg PO BID PRN PRN Reason: sx of psychosis Last Admin: 11/21/23 10:22 Dose: 5 mg Hydroxyzine HCl (Hydroxyzine Hcl 50 Mg Tablet) 100 mg PO BID [facility] Last Admin: 11/22/23 08:38 Dose: 100 mg Hydroxyzine HCl (Hydroxyzine Hcl 50 Mg Tablet) 50 mg PO Q6H PRN PRN Reason: Anxiety Magnesium Hydroxide (Milk Of Magnesia 30 Ml Oral.Susp) 30 ml PO DAILY PRN PRN Reason: Constipation Melatonin (Melatonin 3 Mg Tablet) 6 mg PO BEDTIME [facility] Last Admin: 11/21/23 20:52 Dose: 6 mg Methadone HCl (Methadone Hcl 20 Mg/2 Ml Oral.Conc) 55 mg PO DAILY [facility] Last Admin: 11/22/23 07:59 Dose: 55 mg Multivitamins/Vitamin C (Multivitamin Tablet) 1 tab PO DAILY [facility] Last Admin: 11/22/23 08:37 Dose: 1 tab Nicotine Polacrilex (Nicotine Polacrilex 2 Mg Gum) 4 mg BUCCAL Q2H PRN PRN Reason: Nicotine Cravings Last Admin: 11/22/23 16:24 Dose: 4 mg Olanzapine (Olanzapine 10 Mg Tablet) 10 mg PO TID PRN PRN Reason: psychosis Last Admin: 11/22/23 16:23 Dose: 10 mg Quetiapine Fumarate (Quetiapine Fumarate 400 Mg Tablet) 400 mg PO BEDTIME [facility] Last Admin: 11/21/23 20:52 Dose: 400 mg Thiamine HCl (Thiamine Hcl 100 Mg Tablet) 100 mg PO DAILY [facility] Last Admin: 11/22/23 08:38 Dose: 100 mg Trazodone HCl (Trazodone Hcl 100 Mg Tablet) 200 mg PO BEDTIME [facility] Last Admin: 11/21/23 20:52 Dose: 200 mg Allergies Allergies Allergy/AdvReac Type Severity Reaction Status Date / Time hydrocodone [From VICODIN] AdvReac Mild nausea Verified 11/12/23 20:20 Assessment & Plan Assessment & Plan (1) Schizoaffective disorder: Status: Acute Code(s): F25.9 - Schizoaffective disorder, unspecified (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 and 30 mg HS Increase Gabapentin to 200 mg tid Haldol 5 mg bid prn sx of psychosis 11/20: Change Lorazepam to Klonopin Continue Haldol prn Discontinue Olanzapine scheduled dosing, continue prn Restart Quetiapine 400 mg HS Patient educated on: diagnosis, medication risk/benefits, substance abuse and therapeutic strategies Informed Consent: understands and further education needed Reason for continued inpatient stay Substantial Risk for: rapid decompensation Time Spent With Patient Time: Total time managing care of this patient today ____ minutes.
[2023-11-22 20:00] VITALS: BP 133/63; PULSE 68; RESP 20; TEMP 37.1; O2SAT 97
[2023-11-22] MEDS: Melatonin 3 MG TABLET 6 MG PO (20:30)
[2023-11-22] MEDS: traZODone HCL 100 MG TABLET 200 MG PO (20:31)
[2023-11-22 20:32] VITALS: BP 128/68
[2023-11-22] MEDS: QUEtiapine Fumarate 400 MG TABLET PO (20:32)
[2023-11-23] MEDS: Acetaminophen 325 MG TABLET 650 MG PO (06:30)
[2023-11-23] MEDS: OLANZapine 10 MG TABLET PO ×3 (06:31→17:12)
[2023-11-23] MEDS: methADONE HCl 20 MG/2 ML ORAL.CONC 55 MG PO (07:53)
[2023-11-23 08:00] VITALS: BP 122/65; PULSE 75; TEMP 36.4; O2SAT 96
[2023-11-23] MEDS: Nicotine Polacrilex 2 MG GUM 4 MG BUCCAL ×4 (08:35→16:22)
[2023-11-23] MEDS: buPROPion HCl XL 150 MG TAB.ER.24H PO (08:36)
[2023-11-23] MEDS: Thiamine HCL 100 MG TABLET PO (08:36)
[2023-11-23] MEDS: Multivitamin TABLET 1 TAB PO (08:36)
[2023-11-23] MEDS: Gabapentin 100 MG CAPSULE 200 MG PO ×3 (08:36→20:13)
[2023-11-23] MEDS: busPIRone HCl 10 MG TABLET PO ×3 (08:36→20:16)
[2023-11-23] MEDS: cloNIDine HCL 0.1 MG TABLET PO ×3 (08:37→20:15)
[2023-11-23] MEDS: hydrOXYzine HCL 50 MG TABLET 100 MG PO ×2 (08:37→20:13)
[2023-11-23] MEDS: Baclofen 10 MG TABLET PO (08:37)
[2023-11-23] MEDS: Folic Acid 1 MG TABLET PO (08:37)
[2023-11-23] MEDS: clonazePAM 0.5 MG TABLET PO ×3 (08:37→20:15)
--- NOTE | 2023-11-23 11:35 | HO.PSYCHPN ---
Subjective Subjective Date of Service: 11/23/23 Reason For Visit: Depression/psychosis Interim History: Met with patient; discussed with team Patient reports he is doing better today. Still sad about break-up with girlfriend but feels that he is handling it well coming to terms with it. Reports struggle sleeping and okay with med changes to help insomnia Mental Status Exam Mental Status Exam Patient Appearance: Unkempt Patient Orientation: Person, Place, Time and Situation Level of Consciousness: Alert Patient Behavior: Appropriate, Talkative, Cooperative and Good Eye Contact Mood Description: Anxious Affect Description: Anxious Patient Cognition Impaired: No Ability to Follow Directions: Good Speech Pattern: Spontaneous Speech Memory Description: Episodic Impaired Hallucinations: None Delusions: Not Present Thought Process: Goal Oriented Thought Content: positive for Perseveration and positive for Suicidal Ideation (denies) Depressive Symptoms: Increased Anxiety and Difficulty Sleeping Judgement: Fair Diagnostics Vital Signs (24Hr): Vital Signs - 24 hr 11/22/23 13:10 11/22/23 20:00 11/22/23 20:32 Temperature 98.7 F Pulse Rate 68 Respiratory Rate 20 Blood Pressure 113/58 L 133/63 128/68 Pulse Oximetry 97 Oxygen Delivery Method Room Air 11/23/23 08:00 Temperature 97.5 F Pulse Rate 75 Respiratory Rate Blood Pressure 122/65 Pulse Oximetry 96 Oxygen Delivery Method Room Air BMI result Body Mass Index 29.6 Labs 11/12/23 22:53 11/12/23 22:53 Imaging Radiology Impressions: ITS Impressions Ankle X-Ray 11/13/23 13:10 IMPRESSION: No radiographic evidence of hardware complication. Medications Medications Current Medications Acetaminophen (Acetaminophen 325 Mg Tablet) 650 mg PO Q6H PRN PRN Reason: Headache/Pain Mild Scale (1-3) Last Admin: 11/23/23 06:30 Dose: 650 mg Al Hydroxide/Mg Hydroxide (Magnesium Hydrox/Alum Hydrox 30 Ml Oral.Susp) 30 ml PO Q6H PRN PRN Reason: Heartburn/Nausea Baclofen (Baclofen 10 Mg Tablet) 10 mg PO DAILY [facility] Last Admin: 11/23/23 08:37 Dose: 10 mg Betamethasone Dipropion Augmented (Betamethasone Dip Aug 0.05% Cr 15 Gm Tube) 1 appl TOPICAL BID [facility]; Protocol Last Admin: 11/23/23 09:30 Dose: Not Given Bupropion HCl (Bupropion Hcl Xl 150 Mg Tab.Er.24h) 150 mg PO DAILY [facility] Last Admin: 11/23/23 08:36 Dose: 150 mg Buspirone HCl (Buspirone Hcl 10 Mg Tablet) 10 mg PO TID [facility] Last Admin: 11/23/23 08:36 Dose: 10 mg Clonazepam (Clonazepam 0.5 Mg Tablet) 0.5 mg PO TID [facility] Last Admin: 11/23/23 08:37 Dose: 0.5 mg Clonidine HCl (Clonidine Hcl 0.1 Mg Tablet) 0.1 mg PO Q4H PRN; Protocol PRN Reason: anxiety, agitation Last Admin: 11/22/23 13:10 Dose: 0.1 mg Clonidine HCl (Clonidine Hcl 0.1 Mg Tablet) 0.1 mg PO BID [facility]; Protocol Last Admin: 11/23/23 08:37 Dose: 0.1 mg Folic Acid (Folic Acid 1 Mg Tablet) 1 mg PO DAILY [facility] Last Admin: 11/23/23 08:37 Dose: 1 mg Gabapentin (Gabapentin 100 Mg Capsule) 200 mg PO TID [facility] Last Admin: 11/23/23 08:36 Dose: 200 mg Haloperidol (Haloperidol 5 Mg Tablet) 5 mg PO BID PRN PRN Reason: sx of psychosis Last Admin: 11/21/23 10:22 Dose: 5 mg Hydroxyzine HCl (Hydroxyzine Hcl 50 Mg Tablet) 100 mg PO BID [facility] Last Admin: 11/23/23 08:37 Dose: 100 mg Hydroxyzine HCl (Hydroxyzine Hcl 50 Mg Tablet) 50 mg PO Q6H PRN PRN Reason: Anxiety Magnesium Hydroxide (Milk Of Magnesia 30 Ml Oral.Susp) 30 ml PO DAILY PRN PRN Reason: Constipation Melatonin (Melatonin 3 Mg Tablet) 6 mg PO BEDTIME [facility] Last Admin: 11/22/23 20:30 Dose: 6 mg Methadone HCl (Methadone Hcl 20 Mg/2 Ml Oral.Conc) 55 mg PO DAILY [facility] Last Admin: 11/23/23 07:53 Dose: 55 mg Multivitamins/Vitamin C (Multivitamin Tablet) 1 tab PO DAILY [facility] Last Admin: 11/23/23 08:36 Dose: 1 tab Nicotine Polacrilex (Nicotine Polacrilex 2 Mg Gum) 4 mg BUCCAL Q2H PRN PRN Reason: Nicotine Cravings Last Admin: 11/23/23 08:35 Dose: 4 mg Olanzapine (Olanzapine 10 Mg Tablet) 10 mg PO TID PRN PRN Reason: psychosis Last Admin: 11/23/23 06:31 Dose: 10 mg Quetiapine Fumarate (Quetiapine Fumarate 400 Mg Tablet) 400 mg PO BEDTIME [facility] Last Admin: 11/22/23 20:32 Dose: 400 mg Thiamine HCl (Thiamine Hcl 100 Mg Tablet) 100 mg PO DAILY [facility] Last Admin: 11/23/23 08:36 Dose: 100 mg Trazodone HCl (Trazodone Hcl 100 Mg Tablet) 200 mg PO BEDTIME [facility] Last Admin: 11/22/23 20:31 Dose: 200 mg Allergies Allergies Allergy/AdvReac Type Severity Reaction Status Date / Time hydrocodone [From VICODIN] AdvReac Mild nausea Verified 11/12/23 20:20 Assessment & Plan Assessment & Plan (1) Schizoaffective disorder: Status: Acute Code(s): F25.9 - Schizoaffective disorder, unspecified (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 and 30 mg HS Increase Gabapentin to 200 mg tid Haldol 5 mg bid prn sx of psychosis 11/20: Change Lorazepam to Klonopin Continue Haldol prn Discontinue Olanzapine scheduled dosing, continue prn Restart Quetiapine 400 mg HS 11/22 anxious and sad about girlfriend however overall mood is better and no delusional thoughts expressed. Patient educated on: diagnosis, medication risk/benefits and therapeutic strategies Informed Consent: understands Reason for continued inpatient stay Substantial Risk for: rapid decompensation Time Spent With Patient Time: Total time managing care of this patient today ____ minutes.
[2023-11-23] MEDS: Lidocaine 4 % Patch ADH..PATCH 1 PATCH TRANSDERMA (11:49)
[2023-11-23] MEDS: Nicotine 21 MG PATCH.TD24 TRANSDERMA (13:38)
[2023-11-23] MEDS: hydrOXYzine HCL 50 MG TABLET PO (13:41)
[2023-11-23] MEDS: Milk of Magnesia 30 ML ORAL.SUSP PO (16:28)
[2023-11-23 18:48] VITALS: BP 123/7
[2023-11-23] MEDS: HaloperidoL 5 MG TABLET PO (18:48)
[2023-11-23] MEDS: polyethylene glycoL 3350 17 GM POWD.PACK PO (18:49)
[2023-11-23 20:00] VITALS: BP 123/72; PULSE 84
[2023-11-23] MEDS: Melatonin 3 MG TABLET 6 MG PO (20:14)
[2023-11-23] MEDS: QUEtiapine Fumarate 400 MG TABLET PO (20:14)
[2023-11-23 20:15] VITALS: BP 123/72
[2023-11-23] MEDS: traZODone HCL 100 MG TABLET 200 MG PO (20:16)
[2023-11-24] MEDS: Acetaminophen 325 MG TABLET 650 MG PO ×2 (03:23→11:24)
[2023-11-24] MEDS: Lidocaine 4 % Patch ADH..PATCH 1 PATCH TRANSDERMA (03:26)
[2023-11-24] MEDS: methADONE HCl 20 MG/2 ML ORAL.CONC 55 MG PO (07:53)
[2023-11-24 08:00] VITALS: BP 134/68; PULSE 83; TEMP 36; O2SAT 95
[2023-11-24] MEDS: Folic Acid 1 MG TABLET PO (08:20)
[2023-11-24] MEDS: Gabapentin 100 MG CAPSULE 200 MG PO (08:20)
[2023-11-24] MEDS: cloNIDine HCL 0.1 MG TABLET PO ×3 (08:20→20:13)
[2023-11-24] MEDS: hydrOXYzine HCL 50 MG TABLET 100 MG PO ×2 (08:20→20:13)
[2023-11-24] MEDS: Multivitamin TABLET 1 TAB PO (08:21)
[2023-11-24] MEDS: buPROPion HCl XL 150 MG TAB.ER.24H PO (08:21)
[2023-11-24] MEDS: Baclofen 10 MG TABLET PO (08:21)
[2023-11-24] MEDS: clonazePAM 0.5 MG TABLET PO ×3 (08:21→20:13)
[2023-11-24] MEDS: Thiamine HCL 100 MG TABLET PO (08:21)
[2023-11-24] MEDS: busPIRone HCl 10 MG TABLET PO ×3 (08:21→20:13)
[2023-11-24] MEDS: OLANZapine 10 MG TABLET PO ×3 (08:21→15:43)
[2023-11-24] MEDS: Nicotine 21 MG PATCH.TD24 TRANSDERMA (09:08)
[2023-11-24] MEDS: Nicotine Polacrilex 2 MG GUM 4 MG BUCCAL ×3 (09:08→18:48)
--- NOTE | 2023-11-24 11:46 | P.PNPSI_ITS ---
Subjective Subjective Date of Service: 11/24/23 Reason For Visit: Depression/psychosis Interim History: Met with patient; discussed with team Patient feels overall better but still quite anxious. Says that bursitis in hip is flaring causing him pain; reports he is allergic to ibuprofen. Agreed to increase in gabapentin Mental Status Exam Mental Status Exam Patient Appearance: Unkempt Patient Orientation: Person, Place, Time and Situation Level of Consciousness: Alert Patient Behavior: Appropriate, Talkative, Cooperative and Good Eye Contact Mood Description: Anxious Affect Description: Anxious Patient Cognition Impaired: No Ability to Follow Directions: Good Speech Pattern: Spontaneous Speech Memory Description: Episodic Impaired Hallucinations: None Delusions: Not Present Thought Process: Goal Oriented Thought Content: positive for Perseveration and positive for Suicidal Ideation (denies) Depressive Symptoms: Increased Anxiety and Difficulty Sleeping Judgement: Fair Diagnostics Vital Signs (24Hr): Vital Signs - 24 hr 11/23/23 18:48 11/23/23 20:00 11/23/23 20:15 Temperature Pulse Rate 84 Blood Pressure 123/7 L 123/72 123/72 Pulse Oximetry Oxygen Delivery Method 11/24/23 08:00 Temperature 96.8 F Pulse Rate 83 Blood Pressure 134/68 Pulse Oximetry 95 Oxygen Delivery Method Room Air BMI result Body Mass Index 29.6 Labs 11/12/23 22:53 11/12/23 22:53 Imaging Radiology Impressions: ITS Impressions Ankle X-Ray 11/13/23 13:10 IMPRESSION: No radiographic evidence of hardware complication. Medications Medications Current Medications Acetaminophen (Acetaminophen 325 Mg Tablet) 650 mg PO Q6H PRN PRN Reason: Headache/Pain Mild Scale (1-3) Last Admin: 11/24/23 11:24 Dose: 650 mg Al Hydroxide/Mg Hydroxide (Magnesium Hydrox/Alum Hydrox 30 Ml Oral.Susp) 30 ml PO Q6H PRN PRN Reason: Heartburn/Nausea Baclofen (Baclofen 10 Mg Tablet) 10 mg PO DAILY [facility] Last Admin: 11/24/23 08:21 Dose: 10 mg Betamethasone Dipropion Augmented (Betamethasone Dip Aug 0.05% Cr 15 Gm Tube) 1 appl TOPICAL BID [facility]; Protocol Last Admin: 11/24/23 10:42 Dose: Not Given Bupropion HCl (Bupropion Hcl Xl 150 Mg Tab.Er.24h) 150 mg PO DAILY [facility] Last Admin: 11/24/23 08:21 Dose: 150 mg Buspirone HCl (Buspirone Hcl 10 Mg Tablet) 10 mg PO TID [facility] Last Admin: 11/24/23 08:21 Dose: 10 mg Clonazepam (Clonazepam 0.5 Mg Tablet) 0.5 mg PO TID [facility] Last Admin: 11/24/23 08:21 Dose: 0.5 mg Clonidine HCl (Clonidine Hcl 0.1 Mg Tablet) 0.1 mg PO Q4H PRN; Protocol PRN Reason: anxiety, agitation Last Admin: 11/23/23 18:48 Dose: 0.1 mg Clonidine HCl (Clonidine Hcl 0.1 Mg Tablet) 0.1 mg PO BID [facility]; Protocol Last Admin: 11/24/23 08:20 Dose: 0.1 mg Folic Acid (Folic Acid 1 Mg Tablet) 1 mg PO DAILY [facility] Last Admin: 11/24/23 08:20 Dose: 1 mg Gabapentin (Gabapentin 100 Mg Capsule) 200 mg PO TID [facility] Last Admin: 11/24/23 08:20 Dose: 200 mg Haloperidol (Haloperidol 5 Mg Tablet) 5 mg PO BID PRN PRN Reason: sx of psychosis Last Admin: 11/23/23 18:48 Dose: 5 mg Hydroxyzine HCl (Hydroxyzine Hcl 50 Mg Tablet) 100 mg PO BID [facility] Last Admin: 11/24/23 08:20 Dose: 100 mg Hydroxyzine HCl (Hydroxyzine Hcl 50 Mg Tablet) 50 mg PO Q6H PRN PRN Reason: Anxiety Last Admin: 11/23/23 13:41 Dose: 50 mg Ibuprofen (Ibuprofen 800 Mg Tablet) 800 mg PO ONCE ONE Stop: 11/24/23 11:43 Ibuprofen (Ibuprofen 800 Mg Tablet) 800 mg PO TIDWM [facility] Stop: 11/26/23 23:50 Lidocaine (Lidocaine 4 % Patch Adh..Patch) 1 patch TRANSDERMA DAILY PRN; Protocol PRN Reason: hip pain Last Admin: 11/24/23 03:26 Dose: 1 patch Magnesium Hydroxide (Milk Of Magnesia 30 Ml Oral.Susp) 30 ml PO DAILY PRN PRN Reason: Constipation Last Admin: 11/23/23 16:28 Dose: 30 ml Melatonin (Melatonin 3 Mg Tablet) 6 mg PO BEDTIME [facility] Last Admin: 11/23/23 20:14 Dose: 6 mg Methadone HCl (Methadone Hcl 20 Mg/2 Ml Oral.Conc) 55 mg PO DAILY [facility] Last Admin: 11/24/23 07:53 Dose: 55 mg Multivitamins/Vitamin C (Multivitamin Tablet) 1 tab PO DAILY [facility] Last Admin: 11/24/23 08:21 Dose: 1 tab Nicotine (Nicotine 21 Mg Patch.Td24) 21 mg TRANSDERMA DAILY PRN PRN Reason: smoking cessation Last Admin: 11/24/23 09:08 Dose: 21 mg Nicotine Polacrilex (Nicotine Polacrilex 2 Mg Gum) 4 mg BUCCAL Q2H PRN PRN Reason: Nicotine Cravings Last Admin: 11/24/23 09:08 Dose: 4 mg Olanzapine (Olanzapine 10 Mg Tablet) 10 mg PO TID PRN PRN Reason: psychosis Last Admin: 11/24/23 08:21 Dose: 10 mg Polyethylene Glycol (Polyethylene Glycol 3350 17 Gm Powd.Pack) 17 gm PO DAILY PRN PRN Reason: constipation Quetiapine Fumarate (Quetiapine Fumarate 400 Mg Tablet) 400 mg PO BEDTIME [facility] Last Admin: 11/23/23 20:14 Dose: 400 mg Thiamine HCl (Thiamine Hcl 100 Mg Tablet) 100 mg PO DAILY [facility] Last Admin: 11/24/23 08:21 Dose: 100 mg Trazodone HCl (Trazodone Hcl 100 Mg Tablet) 200 mg PO BEDTIME [facility] Last Admin: 11/23/23 20:16 Dose: 200 mg Allergies Allergies Allergy/AdvReac Type Severity Reaction Status Date / Time hydrocodone [From VICODIN] AdvReac Mild nausea Verified 11/12/23 20:20 Assessment & Plan Assessment & Plan (1) Schizoaffective disorder: Status: Acute Code(s): F25.9 - Schizoaffective disorder, unspecified (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 and 30 mg HS Increase Gabapentin to 200 mg tid Haldol 5 mg bid prn sx of psychosis 11/20: Change Lorazepam to Klonopin Continue Haldol prn Discontinue Olanzapine scheduled dosing, continue prn Restart Quetiapine 400 mg HS 11/22 anxious and sad about girlfriend however overall mood is better and no delusional thoughts expressed. 11/23 Same presentation, doing better though still anxious Reports bursitis and multiple areas of joint pain which he says is intermittently chronic; reviewed labs and BUN/creatinine WNL; allergic to buprofen -instead increased gabapentin to 300 mg t.i.d. Patient educated on: diagnosis, medication risk/benefits and medical condition Informed Consent: understands Reason for continued inpatient stay Substantial Risk for: rapid decompensation Time Spent With Patient Time: Total time managing care of this patient today ____ minutes.
[2023-11-24] MEDS: Gabapentin 300 MG CAPSULE PO ×2 (14:08→20:13)
[2023-11-24] MEDS: Magnesium Hydrox/Alum Hydrox 30 ML ORAL.SUSP PO (14:53)
[2023-11-24] MEDS: polyethylene glycoL 3350 17 GM POWD.PACK PO (14:53)
[2023-11-24 18:45] VITALS: BP 107/54
[2023-11-24] MEDS: hydrOXYzine HCL 50 MG TABLET PO (18:47)
[2023-11-24 20:00] VITALS: BP 106/61; PULSE 71; RESP 14; TEMP 36.2; O2SAT 95
[2023-11-24] MEDS: traZODone HCL 100 MG TABLET 200 MG PO (20:12)
[2023-11-24] MEDS: Melatonin 3 MG TABLET 6 MG PO (20:13)
[2023-11-24] MEDS: QUEtiapine Fumarate 400 MG TABLET PO (20:13)
--- NOTE | 2023-11-25 | ECG_ITS ---
Test Reason : chest discomfort, lightheaded Blood Pressure : / mmHG Vent. Rate : 064 BPM Atrial Rate : 064 BPM P-R Int : 160 ms QRS Dur : 096 ms QT Int : 430 ms P-R-T Axes : 049 060 035 degrees QTc Int : 443 ms Normal sinus rhythm Normal ECG When compared with ECG of 13-NOV-2023 08:44, Nonspecific T wave abnormality now evident in Inferior leads Referred By: Grisel Lawrence Electronically Signed By:Fidencio Marion
[2023-11-25] MEDS: Lidocaine 4 % Patch ADH..PATCH 1 PATCH TRANSDERMA (03:50)
[2023-11-25] MEDS: Acetaminophen 325 MG TABLET 650 MG PO (03:50)
[2023-11-25] MEDS: methADONE HCl 20 MG/2 ML ORAL.CONC 55 MG PO (07:56)
[2023-11-25 08:00] VITALS: BP 137/64; PULSE 60; TEMP 36; O2SAT 97
[2023-11-25] MEDS: buPROPion HCl XL 150 MG TAB.ER.24H PO (08:35)
[2023-11-25] MEDS: Gabapentin 300 MG CAPSULE PO ×2 (08:36→14:07)
[2023-11-25] MEDS: cloNIDine HCL 0.1 MG TABLET PO ×3 (08:36→20:16)
[2023-11-25] MEDS: clonazePAM 0.5 MG TABLET PO ×3 (08:36→20:15)
[2023-11-25] MEDS: Folic Acid 1 MG TABLET PO (08:36)
[2023-11-25] MEDS: Multivitamin TABLET 1 TAB PO (08:36)
[2023-11-25] MEDS: Baclofen 10 MG TABLET PO (08:36)
[2023-11-25] MEDS: hydrOXYzine HCL 50 MG TABLET 100 MG PO ×2 (08:36→20:16)
[2023-11-25] MEDS: busPIRone HCl 10 MG TABLET PO ×3 (08:36→20:15)
[2023-11-25] MEDS: Thiamine HCL 100 MG TABLET PO (08:36)
[2023-11-25] MEDS: OLANZapine 10 MG TABLET PO ×2 (08:36→17:41)
[2023-11-25] MEDS: Nicotine Polacrilex 2 MG GUM 4 MG BUCCAL ×3 (08:41→16:43)
[2023-11-25] MEDS: Nicotine 21 MG PATCH.TD24 TRANSDERMA (08:47)
[2023-11-25 10:19] VITALS: BP 100/66
[2023-11-25] MEDS: Magnesium Hydrox/Alum Hydrox 30 ML ORAL.SUSP PO (13:13)
[2023-11-25 13:54] LABS: MANUAL DIFF FLAG NO
[2023-11-25 13:58] LABS: Basophils Percent Auto 0.4 % (0-2); Eosinophils Absolute Auto 0.2 X10*3/uL (0.0-0.4); Hematocrit 34.3 % (42.0-52.0); Hemoglobin 11.2 g/dl (14.0-18.0); Imm Gran Abs Auto 0.04 X10*3/uL (0.00-0.03); Imm Gran Pct Auto 0.6 % (0.0-0.4); Lymphocytes Absolute Auto 2.6 X10*3/uL (1.2-4.9); Lymphocytes Percent Auto 38.1 % (20-40); Mean Corpuscular HGB Conc 32.7 g/dl (31.0-36.0); Mean Corpuscular Volume 88.9 fL (80.0-98.0); Mean Platelet Volume 10.6 fL (9.4-12.4); Monocytes Absolute Auto 0.8 X10*3/uL (0.1-1.2); Monocytes Percent Auto 12.6 % (2-11); Neutrophils Percent Auto 45.3 % (45-73); Platelet Count 172 X10*3/uL (160-400); Red Blood Count 3.86 X10*6/uL (4.60-5.80); White Blood Count 6.7 X10*3/uL (4.8-10.8)
--- NOTE | 2023-11-25 14:15 | PC.NURSE ---
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 Cleve was asked multiple questions in which his speech was garbled and he complained of chest pain. Vitals were obtained, 105/51 pulse 96. He stated that he felt better after about 30 seconds. MD aware, Labs and EKG ordered.
[2023-11-25 14:44] LABS: Alanine Aminotransferase 9 U/L (0-40); Albumin Level 3.9 g/dL (3.5-5.0); Alkaline Phosphatase 57 U/L (39-117); Anion Gap 12 (12-20); Aspartate Amino Transferase 13 U/L (5-37); Bilirubin Total 0.1 mg/dL (0.0-1.0); Blood Urea Nitrogen 21 mg/dL (9-16); Carbon Dioxide 24 mmol/L (22-29); Chloride 106 mmol/L (96-108); Creatinine Clr Calc Pharmacy 114.1; Estimated Glomerular Filt Rate > 60; Glucose Random 118 mg/dL (60-115); Potassium 4.4 mmol/L (3.3-5.1); Sodium 138 mmol/L (135-145); Total Protein 6.8 g/dL (6.5-8.0)
[2023-11-25 16:39] LABS: Iron 76 mcg/dL (45-160); Percent Iron Saturation 22 % (15-50); Total Iron Binding Capacity 342 mcg/dL (228-428); Unsaturated Iron Binding 266 ug/dL
--- NOTE | 2023-11-25 16:47 | HO.PSYCHPN ---
Subjective Subjective Date of Service: 11/25/23 Reason For Visit: Depression/psychosis Subjective Notes: Conditional Voluntary Healthcare Proxy: No Guardianship: No Medical Problems Affecting Mental Status: No Interim History: Team/pt report no sx psychosis over the weekend. Talking about loss of relationship. Reported sx of hip pain-hx bursitis. Today discussed discharge with pt. He will discharge 11/25. Plans to live with a friend beginning on 11/27. Expressed anger that programs had not accepted him. Discussed the uncertainty of program acceptance for every applicant. Will make urology referral for pt upon discharge as he had a difficult interaction with an ER MD at [facility] and an incomplete discussion about urological sx. After our meeting with Dorothea Sanchez [employer], pt reported to team feeling light headed with chest discomfort, having trouble finding his words. BP 105/51 P96. EKG WNL, CBC with low RBC 3.86, HGB 11.2, HCT 34.3. Normal Iron Profile, B12, Folate and TSH. Reports sx resolution later in the afternoon. Medication Compliance: Yes Side effects from medications: No Attending Groups: Intermittent Review of Systems Acute medical concerns: No as noted above Medical Review of Systems: unchanged Review of Systems Review of Systems hip bursitis pain episode of light headedness, diagnostics are negative currently. Mental Status Exam Mental Status Exam Patient Appearance: Appropriate Patient Orientation: Person, Place, Time and Situation Level of Consciousness: Alert Patient Behavior: Talkative and Good Eye Contact Mood Description: Hostile and Apprehensive Affect Description: Flat Patient Cognition Impaired: No Ability to Follow Directions: Good Speech Pattern: Spontaneous Speech Memory Description: Intact Hallucinations: None Delusions: Not Present Perceptual Disturbances: Depersonalization and Derealization Thought Process: Distracted and Goal Oriented Thought Content: positive for Goal Oriented Depressive Symptoms: Increased Anxiety Judgement: Good Diagnostics Vital Signs (24Hr): Vital Signs - 24 hr 11/24/23 18:45 11/24/23 20:00 11/25/23 08:00 Temperature 97.2 F 96.8 F Pulse Rate 71 60 Respiratory Rate 14 Blood Pressure 107/54 L 106/61 137/64 Pulse Oximetry 95 97 Oxygen Delivery Method Room Air 11/25/23 10:19 Temperature Pulse Rate Respiratory Rate Blood Pressure 100/66 Pulse Oximetry Oxygen Delivery Method BMI result Body Mass Index 29.6 Labs 11/25/23 13:49 11/25/23 13:49 Labs: Laboratory Results - last 48 hr 11/25/23 11/25/23 13:49 16:02 WBC 6.7 RBC 3.86 L Hgb 11.2 L Hct 34.3 L MCV 88.9 MCH 29.0 MCHC 32.7 RDW 14.0 Plt Count 172 MPV 10.6 Immature Gran % (Auto) 0.6 H Neut % (Auto) 45.3 Lymph % (Auto) 38.1 [place] % (Auto) 12.6 H Eos % (Auto) 3.0 Baso % (Auto) 0.4 Lymph # (Auto) 2.6 [place] # (Auto) 0.8 Eos # (Auto) 0.2 Baso # (Auto) 0.0 Abs Immat Gran (auto) 0.04 H Absolute Neuts (auto) 3.0 Absolute Nucleated RBC 0.000 Nucleated RBC % (auto) 0.0 Sodium 138 Potassium 4.4 Chloride 106 Carbon Dioxide 24 Anion Gap 12 BUN 21 H Creatinine 0.91 Estim Creat Clear Calc 114.1 Estimated GFR > 60 Random Glucose 118 H Calcium 9.0 Iron 76 TIBC 342 % Saturation 22 Unsat Iron Binding 266 Total Bilirubin 0.1 AST 13 ALT 9 Alkaline Phosphatase 57 Total Protein 6.8 Albumin 3.9 Imaging Radiology Impressions: ITS Impressions Ankle X-Ray 11/13/23 13:10 IMPRESSION: No radiographic evidence of hardware complication. Medications Medications Current Medications Acetaminophen (Acetaminophen 325 Mg Tablet) 650 mg PO Q6H PRN PRN Reason: Headache/Pain Mild Scale (1-3) Last Admin: 11/25/23 03:50 Dose: 650 mg Al Hydroxide/Mg Hydroxide (Magnesium Hydrox/Alum Hydrox 30 Ml Oral.Susp) 30 ml PO Q6H PRN PRN Reason: Heartburn/Nausea Last Admin: 11/25/23 13:13 Dose: 30 ml Baclofen (Baclofen 10 Mg Tablet) 10 mg PO DAILY [facility]I Last Admin: 11/25/23 08:36 Dose: 10 mg Betamethasone Dipropion Augmented (Betamethasone Dip Aug 0.05% Cr 15 Gm Tube) 1 appl TOPICAL BID ROMI; Protocol Last Admin: 11/25/23 09:01 Dose: Not Given Bupropion HCl (Bupropion Hcl Xl 150 Mg Tab.Er.24h) 150 mg PO DAILY [facility]I Last Admin: 11/25/23 08:35 Dose: 150 mg Buspirone HCl (Buspirone Hcl 10 Mg Tablet) 10 mg PO TID [facility] Last Admin: 11/25/23 14:07 Dose: 10 mg Clonazepam (Clonazepam 0.5 Mg Tablet) 0.5 mg PO TID [facility] Last Admin: 11/25/23 14:07 Dose: 0.5 mg Clonidine HCl (Clonidine Hcl 0.1 Mg Tablet) 0.1 mg PO Q4H PRN; Protocol PRN Reason: anxiety, agitation Last Admin: 11/25/23 10:19 Dose: 0.1 mg Clonidine HCl (Clonidine Hcl 0.1 Mg Tablet) 0.1 mg PO BID [facility]; Protocol Last Admin: 11/25/23 08:36 Dose: 0.1 mg Folic Acid (Folic Acid 1 Mg Tablet) 1 mg PO DAILY [facility] Last Admin: 11/25/23 08:36 Dose: 1 mg Gabapentin (Gabapentin 300 Mg Capsule) 300 mg PO TID [facility] Last Admin: 11/25/23 14:07 Dose: 300 mg Haloperidol (Haloperidol 5 Mg Tablet) 5 mg PO BID PRN PRN Reason: sx of psychosis Last Admin: 11/23/23 18:48 Dose: 5 mg Hydroxyzine HCl (Hydroxyzine Hcl 50 Mg Tablet) 100 mg PO BID [facility] Last Admin: 11/25/23 08:36 Dose: 100 mg Hydroxyzine HCl (Hydroxyzine Hcl 50 Mg Tablet) 50 mg PO Q6H PRN PRN Reason: Anxiety Last Admin: 11/24/23 18:47 Dose: 50 mg Lidocaine (Lidocaine 4 % Patch Adh..Patch) 1 patch TRANSDERMA DAILY PRN; Protocol PRN Reason: hip pain Last Admin: 11/25/23 03:50 Dose: 1 patch Magnesium Hydroxide (Milk Of Magnesia 30 Ml Oral.Susp) 30 ml PO DAILY PRN PRN Reason: Constipation Last Admin: 11/23/23 16:28 Dose: 30 ml Melatonin (Melatonin 3 Mg Tablet) 6 mg PO BEDTIME [facility] Last Admin: 11/24/23 20:13 Dose: 6 mg Methadone HCl (Methadone Hcl 20 Mg/2 Ml Oral.Conc) 55 mg PO DAILY [facility] Last Admin: 11/25/23 07:56 Dose: 55 mg Multivitamins/Vitamin C (Multivitamin Tablet) 1 tab PO DAILY [facility] Last Admin: 11/25/23 08:36 Dose: 1 tab Nicotine (Nicotine 21 Mg Patch.Td24) 21 mg TRANSDERMA DAILY PRN PRN Reason: smoking cessation Last Admin: 11/25/23 08:47 Dose: 21 mg Nicotine Polacrilex (Nicotine Polacrilex 2 Mg Gum) 4 mg BUCCAL Q2H PRN PRN Reason: Nicotine Cravings Last Admin: 11/25/23 16:43 Dose: 4 mg Olanzapine (Olanzapine 10 Mg Tablet) 10 mg PO TID PRN PRN Reason: psychosis Last Admin: 11/25/23 08:36 Dose: 10 mg Polyethylene Glycol (Polyethylene Glycol 3350 17 Gm Powd.Pack) 17 gm PO DAILY PRN PRN Reason: constipation Last Admin: 11/24/23 14:53 Dose: 17 gm Quetiapine Fumarate (Quetiapine Fumarate 400 Mg Tablet) 400 mg PO BEDTIME [facility] Last Admin: 11/24/23 20:13 Dose: 400 mg Thiamine HCl (Thiamine Hcl 100 Mg Tablet) 100 mg PO DAILY [facility] Last Admin: 11/25/23 08:36 Dose: 100 mg Trazodone HCl (Trazodone Hcl 100 Mg Tablet) 200 mg PO BEDTIME [facility] Last Admin: 11/24/23 20:12 Dose: 200 mg Allergies Allergies Allergy/AdvReac Type Severity Reaction Status Date / Time ibuprofen Allergy Hives Verified 11/24/23 12:53 hydrocodone [From VICODIN] AdvReac Mild nausea Verified 11/12/23 20:20 Assessment & Plan Assessment & Plan (1) Schizoaffective disorder: Status: Acute Code(s): F25.9 - Schizoaffective disorder, unspecified (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 and 30 mg HS Increase Gabapentin to 200 mg tid Haldol 5 mg bid prn sx of psychosis 11/20: Change Lorazepam to Klonopin Continue Haldol prn Discontinue Olanzapine scheduled dosing, continue prn Restart Quetiapine 400 mg HS 11/22 anxious and sad about girlfriend however overall mood is better and no delusional thoughts expressed. 7/28 Same presentation, doing better though still anxious Reports bursitis and multiple areas of joint pain which he says is intermittently chronic; reviewed labs and BUN/creatinine WNL; allergic to buprofen -instead increased gabapentin to 300 mg t.i.d. 11/24 Increase Gabapentin to 600 mg tid Discharge 11/25 Diagnostics WNL Patient educated on: medication risk/benefits, therapeutic strategies and medical condition Informed Consent: understands Reason for continued inpatient stay Substantial Risk for: stable for discharge Time Spent With Patient Time: Total time managing care of this patient today ____ minutes.
[2023-11-25 16:52] LABS: Thyroid Stimulating Hormone 1.93 uIU/mL (0.32-4.0)
[2023-11-25 17:06] LABS: Vitamin B12 301 pg/mL (200-900)
[2023-11-25] MEDS: hydrOXYzine HCL 50 MG TABLET PO (17:41)
[2023-11-25 20:00] VITALS: BP 115/64; PULSE 81; RESP 18; TEMP 36.4; O2SAT 96
[2023-11-25] MEDS: Gabapentin 300 MG CAPSULE 600 MG PO (20:15)
[2023-11-25] MEDS: QUEtiapine Fumarate 400 MG TABLET PO (20:15)
[2023-11-25] MEDS: traZODone HCL 100 MG TABLET 200 MG PO (20:15)
[2023-11-25] MEDS: Melatonin 3 MG TABLET 6 MG PO (20:16)
--- NOTE | 2023-11-26 07:26 | PC.NURSE ---
Pt received trazodone x 1 dose at 2014 with other PM meds, med will not scan and save, multiple attempts made, Pharmacy aware.
[2023-11-26] MEDS: methADONE HCl 20 MG/2 ML ORAL.CONC 55 MG PO (07:51)
[2023-11-26 08:21] VITALS: BP 112/59; PULSE 72; RESP 16; TEMP 36.2; O2SAT 96
[2023-11-26] MEDS: hydrOXYzine HCL 50 MG TABLET 100 MG PO ×2 (08:23→20:12)
[2023-11-26] MEDS: OLANZapine 10 MG TABLET 30 MG PO (08:24)
[2023-11-26] MEDS: clonazePAM 0.5 MG TABLET PO ×2 (08:25→20:13)
[2023-11-26] MEDS: buPROPion HCL 100 MG TABLET PO (08:25)
[2023-11-26] MEDS: Baclofen 10 MG TABLET PO (08:25)
[2023-11-26] MEDS: Gabapentin 300 MG CAPSULE 600 MG PO (08:25)
[2023-11-26] MEDS: Multivitamin TABLET 1 TAB PO (08:25)
[2023-11-26] MEDS: busPIRone HCl 10 MG TABLET PO ×3 (08:25→20:12)
[2023-11-26 08:26] VITALS: BP 112/59
[2023-11-26] MEDS: cloNIDine HCL 0.1 MG TABLET PO ×3 (08:26→20:13)
[2023-11-26] MEDS: Thiamine HCL 100 MG TABLET PO (08:26)
[2023-11-26] MEDS: Folic Acid 1 MG TABLET PO (08:27)
[2023-11-26] MEDS: Acetaminophen 325 MG TABLET 650 MG PO (09:15)
[2023-11-26] MEDS: Milk of Magnesia 30 ML ORAL.SUSP PO (09:17)
[2023-11-26] MEDS: Nicotine Polacrilex Lozenge 4 MG LOZENGE BUCCAL ×2 (09:18→12:33)
[2023-11-26] MEDS: Lidocaine 4 % Patch ADH..PATCH 1 PATCH TRANSDERMA (09:19)
[2023-11-26] MEDS: Nicotine 21 MG PATCH.TD24 TRANSDERMA (12:32)
[2023-11-26] MEDS: Gabapentin 300 MG CAPSULE PO ×2 (14:21→20:13)
[2023-11-26] MEDS: OLANZapine 10 MG TABLET PO ×2 (14:25→20:12)
--- NOTE | 2023-11-26 14:47 | P.PNPSI_ITS ---
Subjective Subjective Date of Service: 11/26/23 Reason For Visit: Depression/psychosis Subjective Notes: Conditional Voluntary Healthcare Proxy: No Guardianship: No Medical Problems Affecting Mental Status: No Interim History: Discharge postponed, team report pt significant oversedation. Awake at 12pm. Reports probably Olanzapine 30 mg given this a.m. (per his request) Medications decreased today, including Seroquel, Gabapentin, Klonopin, Olanzapine. Met with pt to review. He expressed anger, we discussed his concerns and potential sedative SE of regime Discussed teams concern for his level of sedation. Medication Compliance: Yes Side effects from medications: No Attending Groups: No Review of Systems Acute medical concerns: No Medical Review of Systems: unchanged Review of Systems Review of Systems Yes all other systems are reviewed and are negative Mental Status Exam Mental Status Exam Patient Appearance: Appropriate Patient Orientation: Person, Place, Time and Situation Level of Consciousness: Alert Patient Behavior: Talkative and Good Eye Contact Mood Description: Hostile and Apprehensive Affect Description: Flat Patient Cognition Impaired: No Ability to Follow Directions: Good Speech Pattern: Spontaneous Speech Memory Description: Intact Hallucinations: None Delusions: Not Present Perceptual Disturbances: Depersonalization and Derealization Thought Process: Distracted and Goal Oriented Thought Content: positive for Goal Oriented Depressive Symptoms: Increased Anxiety Judgement: Good Diagnostics Vital Signs (24Hr): Vital Signs - 24 hr 11/25/23 20:00 11/26/23 08:21 11/26/23 08:26 Temperature 97.5 F 97.2 F Pulse Rate 81 72 Respiratory Rate 18 16 Blood Pressure 115/64 112/59 L 112/59 L Pulse Oximetry 96 96 Oxygen Delivery Method Room Air Room Air BMI result Body Mass Index 29.6 Labs 11/25/23 13:49 11/25/23 13:49 Labs: Laboratory Results - last 48 hr 11/25/23 11/25/23 13:49 16:02 WBC 6.7 RBC 3.86 L Hgb 11.2 L Hct 34.3 L MCV 88.9 MCH 29.0 MCHC 32.7 RDW 14.0 Plt Count 172 MPV 10.6 Immature Gran % (Auto) 0.6 H Neut % (Auto) 45.3 Lymph % (Auto) 38.1 [place] % (Auto) 12.6 H Eos % (Auto) 3.0 Baso % (Auto) 0.4 Lymph # (Auto) 2.6 [place] # (Auto) 0.8 Eos # (Auto) 0.2 Baso # (Auto) 0.0 Abs Immat Gran (auto) 0.04 H Absolute Neuts (auto) 3.0 Absolute Nucleated RBC 0.000 Nucleated RBC % (auto) 0.0 Sodium 138 Potassium 4.4 Chloride 106 Carbon Dioxide 24 Anion Gap 12 BUN 21 H Creatinine 0.91 Estim Creat Clear Calc 114.1 Estimated GFR > 60 Random Glucose 118 H Calcium 9.0 Iron 76 TIBC 342 % Saturation 22 Unsat Iron Binding 266 Total Bilirubin 0.1 AST 13 ALT 9 Alkaline Phosphatase 57 Total Protein 6.8 Albumin 3.9 Vitamin B12 301 Folate 14.0 TSH 1.93 Imaging Radiology Impressions: ITS Impressions Ankle X-Ray 11/13/23 13:10 IMPRESSION: No radiographic evidence of hardware complication. Medications Medications Current Medications Acetaminophen (Acetaminophen 325 Mg Tablet) 650 mg PO Q6H PRN PRN Reason: Headache/Pain Mild Scale (1-3) Last Admin: 11/26/23 09:15 Dose: 650 mg Al Hydroxide/Mg Hydroxide (Magnesium Hydrox/Alum Hydrox 30 Ml Oral.Susp) 30 ml PO Q6H PRN PRN Reason: Heartburn/Nausea Last Admin: 11/25/23 13:13 Dose: 30 ml Baclofen (Baclofen 10 Mg Tablet) 10 mg PO DAILY [facility]I Last Admin: 11/26/23 08:25 Dose: 10 mg Betamethasone Dipropion Augmented (Betamethasone Dip Aug 0.05% Cr 15 Gm Tube) 1 appl TOPICAL BID [facility]; Protocol Last Admin: 11/26/23 08:28 Dose: Not Given Bupropion HCl (Bupropion Hcl 100 Mg Tablet) 100 mg PO DAILY [facility] Last Admin: 11/26/23 08:25 Dose: 100 mg Buspirone HCl (Buspirone Hcl 10 Mg Tablet) 10 mg PO TID [facility] Last Admin: 11/26/23 14:21 Dose: 10 mg Clonazepam (Clonazepam 0.5 Mg Tablet) 0.5 mg PO BID [facility] Clonidine HCl (Clonidine Hcl 0.1 Mg Tablet) 0.1 mg PO Q4H PRN; Protocol PRN Reason: anxiety, agitation Last Admin: 11/25/23 10:19 Dose: 0.1 mg Clonidine HCl (Clonidine Hcl 0.1 Mg Tablet) 0.1 mg PO BID [facility]I; Protocol Last Admin: 11/26/23 08:26 Dose: 0.1 mg Folic Acid (Folic Acid 1 Mg Tablet) 1 mg PO DAILY [facility]I Last Admin: 11/26/23 08:27 Dose: 1 mg Gabapentin (Gabapentin 300 Mg Capsule) 300 mg PO TID [facility] Last Admin: 11/26/23 14:21 Dose: 300 mg Hydroxyzine HCl (Hydroxyzine Hcl 50 Mg Tablet) 100 mg PO BID [facility] Last Admin: 11/26/23 08:23 Dose: 100 mg Hydroxyzine HCl (Hydroxyzine Hcl 50 Mg Tablet) 50 mg PO Q6H PRN PRN Reason: Anxiety Last Admin: 11/25/23 17:41 Dose: 50 mg Lidocaine (Lidocaine 4 % Patch Adh..Patch) 1 patch TRANSDERMA DAILY PRN; Protocol PRN Reason: hip pain Last Admin: 11/26/23 09:19 Dose: 1 patch Magnesium Hydroxide (Milk Of Magnesia 30 Ml Oral.Susp) 30 ml PO DAILY PRN PRN Reason: Constipation Last Admin: 11/26/23 09:17 Dose: 30 ml Melatonin (Melatonin 3 Mg Tablet) 6 mg PO BEDTIME [facility] Last Admin: 11/25/23 20:16 Dose: 6 mg Methadone HCl (Methadone Hcl 20 Mg/2 Ml Oral.Conc) 55 mg PO DAILY [facility] Last Admin: 11/26/23 07:51 Dose: 55 mg Multivitamins/Vitamin C (Multivitamin Tablet) 1 tab PO DAILY [facility] Last Admin: 11/26/23 08:25 Dose: 1 tab Nicotine (Nicotine 21 Mg Patch.Td24) 21 mg TRANSDERMA DAILY [facility] Last Admin: 11/26/23 12:32 Dose: 21 mg Nicotine Polacrilex (Nicotine Polacrilex 2 Mg Gum) 4 mg BUCCAL Q2H PRN PRN Reason: Nicotine Cravings Olanzapine (Olanzapine 10 Mg Tablet) 10 mg PO TID PRN PRN Reason: psychosis Last Admin: 11/26/23 14:25 Dose: 10 mg Olanzapine (Olanzapine 10 Mg Tablet) 10 mg PO DAILY [facility] Quetiapine Fumarate (Quetiapine Fumarate 400 Mg Tablet) 400 mg PO BEDTIME [facility] Thiamine HCl (Thiamine Hcl 100 Mg Tablet) 100 mg PO DAILY [facility] Last Admin: 11/26/23 08:26 Dose: 100 mg Trazodone HCl (Trazodone Hcl 100 Mg Tablet) 200 mg PO BEDTIME [facility] Last Admin: 11/24/23 20:12 Dose: 200 mg Allergies Allergies Allergy/AdvReac Type Severity Reaction Status Date / Time ibuprofen Allergy Hives Verified 11/24/23 12:53 hydrocodone [From VICODIN] AdvReac Mild nausea Verified 11/12/23 20:20 Assessment & Plan Assessment & Plan (1) Schizoaffective disorder: Status: Acute Code(s): F25.9 - Schizoaffective disorder, unspecified (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 and 30 mg HS Increase Gabapentin to 200 mg tid Haldol 5 mg bid prn sx of psychosis 11/20: Change Lorazepam to Klonopin Continue Haldol prn Discontinue Olanzapine scheduled dosing, continue prn Restart Quetiapine 400 mg HS 11/22 anxious and sad about girlfriend however overall mood is better and no delusional thoughts expressed. 11/23 Same presentation, doing better though still anxious Reports bursitis and multiple areas of joint pain which he says is intermittently chronic; reviewed labs and BUN/creatinine WNL; allergic to buprofen -instead increased gabapentin to 300 mg t.i.d. 11/24 Increase Gabapentin to 600 mg tid Discharge 11/25 Diagnostics WNL 11/25 Discharge postponed due to sedation Change Olanzapine to 10 mg a.m. 10 mg tid prn sx of psychosis, agitation Decrease Gabapentin to 300 mg tid Decrease Klonopin to bid Continue Seroquel 400 mg hs Re-eval for dosage changes prior to DC on 11/26. Patient educated on: medication risk/benefits Reason for continued inpatient stay Substantial Risk for: rapid decompensation Time Spent With Patient Time: Total time managing care of this patient today ____ minutes.
[2023-11-26 16:02] VITALS: BP 111/67; PULSE 80; RESP 18
[2023-11-26] MEDS: Nicotine Polacrilex 2 MG GUM 4 MG BUCCAL ×2 (16:59→20:14)
[2023-11-26 20:00] VITALS: BP 121/57; PULSE 70; RESP 18; TEMP 36.4; O2SAT 95
[2023-11-26] MEDS: Melatonin 3 MG TABLET 6 MG PO (20:13)
[2023-11-26] MEDS: QUEtiapine Fumarate 400 MG TABLET PO (20:13)
[2023-11-26] MEDS: traZODone HCL 100 MG TABLET 200 MG PO (20:16)
[2023-11-27] MEDS: OLANZapine 10 MG TABLET PO ×3 (06:33→10:48)
[2023-11-27] MEDS: Nicotine Polacrilex 2 MG GUM 4 MG BUCCAL ×2 (06:34→09:40)
[2023-11-27] MEDS: methADONE HCl 20 MG/2 ML ORAL.CONC 55 MG PO (07:45)
[2023-11-27 08:00] VITALS: BP 133/71; PULSE 77; RESP 18; TEMP 36.5; O2SAT 97
[2023-11-27] MEDS: hydrOXYzine HCL 50 MG TABLET 100 MG PO (08:19)
[2023-11-27 08:20] VITALS: BP 133/71
[2023-11-27] MEDS: cloNIDine HCL 0.1 MG TABLET PO (08:20)
[2023-11-27] MEDS: Thiamine HCL 100 MG TABLET PO (08:20)
[2023-11-27] MEDS: Folic Acid 1 MG TABLET PO (08:21)
[2023-11-27] MEDS: clonazePAM 0.5 MG TABLET PO (08:21)
[2023-11-27] MEDS: Baclofen 10 MG TABLET PO (08:21)
[2023-11-27] MEDS: buPROPion HCL 100 MG TABLET PO (08:22)
[2023-11-27] MEDS: Gabapentin 300 MG CAPSULE PO (08:22)
[2023-11-27] MEDS: busPIRone HCl 10 MG TABLET PO (08:22)
[2023-11-27] MEDS: Multivitamin TABLET 1 TAB PO (08:22)
[2023-11-27] MEDS: Nicotine 21 MG PATCH.TD24 TRANSDERMA (08:24)
[2023-11-27] MEDS: Betamethasone Dip Aug 0.05% Cr 15 GM TUBE 1 APPL TOPICAL (08:26)
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
== END 2023-11-27 11:15 | disposition other institution (70) | DRG 750 ==
LOC: HO.ED 21:05 → HO.PM5 11-13 14:33
PROVIDERS: Physician Assistant; Admitting Provider Psychiatry & Neurology Psychiatry; Emergency Provider Emergency Medicine; Visit Provider Clinical Nurse Specialist Psychiatric/Mental Health, Adult
DX: F25.9 Schizoaffective disorder, unspecified (principal); R45.851 Suicidal ideations; F22 Delusional disorders; F11.20 Opioid dependence, uncomplicated; F14.10 Cocaine abuse, uncomplicated; Z79.899 Other long term (current) drug therapy
CPT/HCPCS: 36415; 73610; 80048; 80053; 80076; 80307; 81003; 82607; 82746; 83540; 83735; 84443; 85025; 93005; 99285; S9485

== ENCOUNTER → 2023-11-13 08:44 | Outpatient (BNV) | payer OTHER, SELFPAY | PROVIDERS: Emergency Provider Emergency Medicine; Visit Provider Internal Medicine Cardiovascular Disease | DX: R00.1 Bradycardia, unspecified (principal) | CPT/HCPCS: 93010 ==

== ENCOUNTER 2023-11-13 14:26 | Outpatient (BNV) | payer OTHER, SELFPAY | END 2023-11-25 14:39 | PROVIDERS: Admitting Provider Psychiatry & Neurology Psychiatry; Emergency Provider Emergency Medicine; Visit Provider Internal Medicine Cardiovascular Disease | DX: R07.89 Other chest pain (principal); R42 Dizziness and giddiness | CPT/HCPCS: 93010 ==

== ENCOUNTER → 2023-11-13 14:26 | Outpatient (BNV) | payer OTHER, SELFPAY | PROVIDERS: Admitting Provider Psychiatry & Neurology Psychiatry; Emergency Provider Emergency Medicine; Visit Provider Nurse Practitioner Psychiatric/Mental Health | DX: F11.90 Opioid use, unspecified, uncomplicated (principal) | CPT/HCPCS: 99499 ==

== ENCOUNTER → 2023-11-13 14:26 | Outpatient (BNV) | payer OTHER, SELFPAY | PROVIDERS: Admitting Provider Psychiatry & Neurology Psychiatry; Emergency Provider Emergency Medicine; Visit Provider Clinical Nurse Specialist Psychiatric/Mental Health, Adult | DX: F25.1 Schizoaffective disorder, depressive type (principal); F22 Delusional disorders; F14.10 Cocaine abuse, uncomplicated | CPT/HCPCS: 90792; 99231; 99232; 99238 ==

== ENCOUNTER 2023-11-28 04:27 | Emergency (ER) | payer OTHER, SELFPAY ==
--- NOTE | 2023-11-28 | ECG_ITS ---
Test Reason : CHEST PAIN Blood Pressure : / mmHG Vent. Rate : 094 BPM Atrial Rate : 094 BPM P-R Int : 148 ms QRS Dur : 088 ms QT Int : 360 ms P-R-T Axes : 042 052 001 degrees QTc Int : 450 ms Normal sinus rhythm Nonspecific T wave abnormality Abnormal ECG When compared with ECG of 25-NOV-2023 14:39, No significant change was found Referred By: Generic ED Physician Electronically Signed By:Fidencio Marion
[2023-11-28 04:30] VITALS: BP 122/99; BP 160/90; PULSE 114; PULSE 97; RESP 20; TEMP 37.3; O2SAT 100; O2SAT 96; BMI 30.6
--- NOTE | 2023-11-28 04:32 | ED.GENADULT ---
HPI - General Adult General Chief complaint: Overdose Stated complaint: OD Time Seen by Provider: 11/28/23 04:32 History of Present Illness ED Provider: Bi PRINCE narrative: The patient is a 48-year-old male who was brought to the hospital by ambulance after being revived from unconsciousness with naloxone. Apparently a 911 call has been placed because of an unresponsive male. Police were the first on the scene. Police found the patient unresponsive and they administered 4 mg of nasal naloxone. Subsequently paramedics arrived and found the patient drowsy and possibly slipping back into unresponsiveness and so they administered another 4 mg of nasal naloxone. The patient says that this is the 1st time that he has used in a month. He says he is on methadone. He says he used 3 bags of heroin which is the dose he has been used to using before he stopped using heroin a month ago. He thinks that he accidentally overdosed because he had not been using recently. He says that he had heroin mixed with cocaine when he injected today. He injected himself into his right hand. The patient is not suicidal or homicidal. The patient says that he has recently taken permethrin for possible scabies. He says that when he was trying to inject the heroin mixed with cocaine he pulled back on the needle and he feels that he saw some parasites in the blood flash. He is worried he might still have scabies. 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 Related Data Home Medications ?Medication ?Instructions ?Recorded ?Confirmed methadone 10 mg/mL oral syringe 50 mg PO DAILY 04/24/22 11/13/23 (FOR ORAL USE ONLY) Previous Rx's ?Medication ?Instructions ?Recorded baclofen 10 mg tablet 10 mg PO DAILY #30 tabs 11/25/23 betamethasone, augmented 0.05 % 1 appl topical BID #100 grams 11/25/23 topical cream bupropion HCl 100 mg tablet 100 mg PO DAILY #30 tabs 11/25/23 buspirone 10 mg tablet 10 mg PO TID #90 tabs 11/25/23 clonidine HCl 0.1 mg tablet 0.1 mg PO BID #60 tabs 11/25/23 folic acid 1 mg tablet 1 mg PO DAILY #30 tabs 11/25/23 hydroxyzine pamoate 50 mg capsule 100 mg (2 x 50 mg) PO BID #60 caps 11/25/23 lidocaine 4 % topical patch 1 patch transdermal DAILY PRN hip 11/25/23 (Lidocaine Pain Relief) pain #30 ea melatonin 3 mg tablet 6 mg (2 x 3 mg) PO BEDTIME #60 tabs 11/25/23 multivitamin (Daily-Alejandrina tablet) 1 tab PO DAILY #30 tabs 11/25/23 thiamine mononitrate (vit B1) 100 100 mg PO DAILY #30 tabs 11/25/23 mg tablet trazodone 100 mg tablet 200 mg (2 x 100 mg) PO BEDTIME #60 11/25/23 tabs clonazepam 0.5 mg tablet (Klonopin) 0.5 mg PO TID #21 tabs 11/27/23 gabapentin 300 mg capsule 300 mg PO TID #21 caps 11/27/23 olanzapine 10 mg tablet 10 mg PO DAILY #120 tabs 11/27/23 olanzapine 10 mg tablet 10 mg PO TID PRN psychosis #120 11/27/23 tabs quetiapine 400 mg tablet 400 mg PO BEDTIME #7 tabs 11/27/23 Allergies Allergy/AdvReac Type Severity Reaction Status Date / Time ibuprofen Allergy Hives Verified 11/28/23 04:37 hydrocodone [From VICODIN] AdvReac Mild nausea Verified 11/28/23 04:37 Review of Systems Review of Systems: Yes all other systems are reviewed and are negative PMF Past Medical History Medical History (Updated 11/28/23 @ 06:08 by Miko Pat MD) Cocaine use disorder Delusions of parasitosis Opioid use disorder Schizoaffective disorder Bursitis Surgical History History of ankle surgery Social History Social History Household Members: Other Household Members Other:: Father Housing: House Do you presently have visiting nurse or other home services: No Alcohol intake: never Patient Tobacco Use Status: Never used Tobacco Smoked in Last 30 Days: No Use of substances other than those prescribed or required for medical reasons: Yes Substance Use Type: Crack/Cocaine and Heroin Advance Directives: No Advance Directives Information Provided: No Do you have a plan to hurt others: No Plan service: Yes Sexual orientation: Straight/Heterosexual Physical Exam ED Vital Signs: Vital Signs - 24 hr 11/28/23 04:30 Temperature 99.1 F Pulse Rate 97 Respiratory Rate 20 Blood Pressure 122/99 H Pulse Oximetry 100 Oxygen Delivery Method Room Air BMI result Body Mass Index 30.6 Const Other: The patient was awake, alert, pleasant, cooperative. He did not appear in acute distress. HENMT Other: Face is symmetrical. Mucous membranes moist. Eyes Other: Pupils are round equal, conjunctivae are clear Neck Other: Moving his neck easily Resp Effort & Inspection: normal respiratory effort Auscultation: clear to auscultation bilaterally Cardio Rate: regular rate Rhythm: regular rhythm Heart sounds: S1 normal heart sound present and S2 normal heart sound present GI Other: Abdomen is soft and nontender Skin Other: Skin is warm and dry. He has some chronic changes to the skin of his lower legs that I think are consistent with eczema. He indicates that he injected into the webspace of the dorsum of the right hand between the thumb and forefinger. There is no erythema. Neuro Other: The patient is awake and alert. Cranial nerves are grossly intact. He moves his extremities normally. Extrem Other: No calf swelling or asymmetry. He has some chronic skin changes to both lower legs. I think this is probably eczema. He has some mild soft tissue swelling in the webspace between the right thumb and index finger but there is no fluctuance and he can move the joints of the hand well. Psych Other: The patient was awake and alert and quite pleasant. However he perseverated on occasion about possibly having some kind of parasites in his body. A review of his previous medical problems include delusional parasitosis. Medical Decision Making Medical Decision Making [facility] Narrative: The patient is a 48-year-old male who presents to the hospital after being revived with naloxone administered by police and paramedics. He admits to injecting himself with heroin and cocaine. The patient says that he had no suicidal intention. He was observed here in the emergency room and seems stable. He does not seem to require any acute intervention nor do I think he requires any additional investigations. I think this is a fairly straight forward case of an accidental opioid overdose. He says that he had not used any heroin for the last month and he suspects that he was more sensitive to the heroin because he had not used it. He says he used the same amount that he used to use when he was using it regularly. After a period of observation the patient was feeling well and ready for discharge. He says that he has a new primary care doctor's appointment coming up soon but he can not tell me the name of the doctor's office. He says he has a written down on a paper at home. He will be discharged to follow up with his regular providers. Lab Data Labs: Lab Results 11/28/23 Range/Units 05:31 Urine Color Yellow Urine Appearance Clear Urine pH 6.5 (5.0-9.0) Ur Specific [place] 1.025 (1.005-1.025) Urine Protein Negative (Neg-Trace) mg/dL Urine Glucose (UA) Negative (Negative) mg/dL Urine Ketones Trace (Negative) mg/dL Urine Blood Negative (Negative) Urine Nitrite Negative (Negative) Ur Leukocyte Esterase Negative (Negative) Urine Opiates Screen POSITIVE H (Not Detect) Ur Buprenorphine Scrn Not Detected (Not Detect) ng/mL Ur Oxycodone Screen Not Detected (Not Detect) ng/mL Urine Methadone Screen Positive H (Not Detect) ng/mL Urine Fentanyl Screen POSITIVE H (Not Detect) Ur Barbiturates Screen Not Detected (Not Detect) Ur Phencyclidine Scrn Not Detected (Not Detect) Ur Amphetamines Screen Not Detected (Not Detect) U Benzodiazepines Scrn Not Detected (Not Detect) Urine Cocaine Screen POSITIVE H (Not Detect) U Marijuana (THC) Screen Not Detected (Not Detect) Discharge Plan Discharge Clinical Impression: Accidental overdose, Opioid use disorder, Opioid overdose Patient Disposition: Home, Self-Care Additional Instructions: Please do your best to avoid using non-prescribed drugs again. Continue your usual methadone. Please follow up with your usual providers. Return to the emergency room if worse. Prescriptions: No Action methadone 10 mg/mL Syringe 50 mg PO DAILY Patient Comments: Verified dose with Cory Salmeron. clonidine HCl 0.1 mg Tablet 0.1 mg PO BID Qty: 60 0RF Protocol: Hold for SBP< HOLD for SBP < : 90 betamethasone, augmented 0.05 % Cream 1 appl topical BID Qty: 100 0RF Protocol: Apply to: Apply to: affected areas with poison carmen bupropion HCl 100 mg Tablet 100 mg PO DAILY Qty: 30 0RF trazodone 100 mg Tablet 200 mg PO BEDTIME Qty: 60 0RF buspirone 10 mg Tablet 10 mg PO TID Qty: 90 0RF lidocaine [Lidocaine Pain Relief] 4 % Adhesive Patch,Medicated 1 patch transdermal DAILY PRN (Reason: hip pain) Qty: 30 0RF Protocol: Apply to: Apply to: affected hip multivitamin [Daily-Alejandrina] Tablet 1 tab PO DAILY Qty: 30 0RF folic acid 1 mg Tablet 1 mg PO DAILY Qty: 30 0RF thiamine mononitrate (vit B1) 100 mg Tablet 100 mg PO DAILY Qty: 30 0RF hydroxyzine pamoate 50 mg capsule 100 mg PO BID Qty: 60 0RF melatonin 3 mg tablet 6 mg PO BEDTIME Qty: 60 0RF baclofen 10 mg tablet 10 mg PO DAILY Qty: 30 0RF olanzapine 10 mg Tablet 10 mg PO DAILY Qty: 120 0RF Rx Instructions: Take 10 mg daily Take 10 mg 3 times a day as needed for sx of psychosis, paranoia, agitation olanzapine 10 mg Tablet 10 mg PO TID PRN (Reason: psychosis) Qty: 120 0RF gabapentin 300 mg Capsule 300 mg PO TID Qty: 21 4RF quetiapine 400 mg Tablet 400 mg PO BEDTIME Qty: 7 4RF clonazepam [Klonopin] 0.5 mg tablet 0.5 mg PO TID Qty: 21 4RF Print Language: Scottish
[2023-11-28 05:38] LABS: Appearance Urine Clear; Color Urine Yellow; Glucose Urine UA Negative (Negative); Leukocyte Esterase Urine Negative (Negative); Nitrite Urine Negative (Negative); PH 6.5 (5.0-9.0); Specific Gravity - Urine 1.025 (1.005-1.025); Urine Blood Negative (Negative); Urine Ketones Trace mg/dL (Negative); Urine Protein Negative (Neg-Trace)
[2023-11-28 05:48] LABS: Amphetamine Screen Urine Not Detected (Not Detect); Barbiturates, Urine Not Detected (Not Detect); Benzodiazepines Screen Urine Not Detected (Not Detect); Buprenorphine Scr Not Detected (Not Detect); Cannabinoid Screen Urine Not Detected (Not Detect); Cocaine Screen Urine POSITIVE (Not Detect); Fentanyl, urine POSITIVE (Not Detect); Methadone Screen, Urine Positive (Not Detect); Opiate Screen Urine POSITIVE (Not Detect); Oxycodone Screen Urine Not Detected (Not Detect); Phencyclidine Screen Urine Not Detected (Not Detect)
[2023-11-28 06:16] VITALS: BP 137/82; PULSE 87; RESP 16; TEMP 37.2; O2SAT 96
== END 2023-11-28 06:21 | disposition home or self-care (01) ==
PROVIDERS: Emergency Provider Emergency Medicine
DX: T40.1X1A Poisoning by heroin, accidental (unintentional), initial encounter (principal); R40.4 Transient alteration of awareness; Y92.039 Unspecified place in apartment as the place of occurrence of the external cause; F14.10 Cocaine abuse, uncomplicated; F11.20 Opioid dependence, uncomplicated; F25.9 Schizoaffective disorder, unspecified; F22 Delusional disorders; Z79.899 Other long term (current) drug therapy
CPT/HCPCS: 80307; 81003; 93005; 99284; 99285

== ENCOUNTER → 2023-11-28 04:56 | Outpatient (BNV) | payer OTHER, SELFPAY | PROVIDERS: Emergency Provider Emergency Medicine; Visit Provider Internal Medicine Cardiovascular Disease | DX: R07.9 Chest pain, unspecified (principal); R94.31 Abnormal electrocardiogram [ECG] [EKG] | CPT/HCPCS: 93010 ==

== ENCOUNTER 2023-11-28 11:04 | Emergency (ER) | payer OTHER, SELFPAY ==
[2023-11-28 11:11] VITALS: BP 144/79; PULSE 113; RESP 14; TEMP 36.3; O2SAT 95; BMI 16.5
--- NOTE | 2023-11-28 11:27 | ED.OVERDOSE ---
HPI - Overdose General Chief Complaint: Overdose Stated Complaint: OD 1 NARCAN GIVEN PRIOR TO EMS ARRIVAL Time Seen by Provider: 11/28/23 11:18 Source: patient and EMS Mode of arrival: EMS Limitations: no limitations History of Present Illness ED Provider: Sawyer Najera PA-C HPI Narrative: 48 yo male with history of substance use disorder on methadone, history of schizoaffective disorder, who presents to the ER for evaluation of an overdose. He states he was at home when he sniffed a half of a bag of heroin. He does not remember anything after that. He states he was given Narcan. He feels sweaty and has a terrible headache. He thinks he fell forward and hit his nose at home. He has a small scrape on the bridge of his nose. He is on anticoagulation. He denies any other symptoms at this time. He states he had been sober for the last 1 month and today was the 1st time he used. MD complaint: accidental overdose Onset (ago): unknown Related Data Home Medications ?Medication ?Instructions ?Recorded ?Confirmed methadone 10 mg/mL oral syringe 50 mg PO DAILY 04/24/22 11/13/23 (FOR ORAL USE ONLY) Previous Rx's ?Medication ?Instructions ?Recorded baclofen 10 mg tablet 10 mg PO DAILY #30 tabs 11/25/23 betamethasone, augmented 0.05 % 1 appl topical BID #100 grams 11/25/23 topical cream bupropion HCl 100 mg tablet 100 mg PO DAILY #30 tabs 11/25/23 buspirone 10 mg tablet 10 mg PO TID #90 tabs 11/25/23 clonidine HCl 0.1 mg tablet 0.1 mg PO BID #60 tabs 11/25/23 folic acid 1 mg tablet 1 mg PO DAILY #30 tabs 11/25/23 hydroxyzine pamoate 50 mg capsule 100 mg (2 x 50 mg) PO BID #60 caps 11/25/23 lidocaine 4 % topical patch 1 patch transdermal DAILY PRN hip 11/25/23 (Lidocaine Pain Relief) pain #30 ea melatonin 3 mg tablet 6 mg (2 x 3 mg) PO BEDTIME #60 tabs 11/25/23 multivitamin (Daily-Alejandrina tablet) 1 tab PO DAILY #30 tabs 11/25/23 thiamine mononitrate (vit B1) 100 100 mg PO DAILY #30 tabs 11/25/23 mg tablet trazodone 100 mg tablet 200 mg (2 x 100 mg) PO BEDTIME #60 11/25/23 tabs clonazepam 0.5 mg tablet (Klonopin) 0.5 mg PO TID #21 tabs 11/27/23 gabapentin 300 mg capsule 300 mg PO TID #21 caps 11/27/23 olanzapine 10 mg tablet 10 mg PO DAILY #120 tabs 11/27/23 olanzapine 10 mg tablet 10 mg PO TID PRN psychosis #120 11/27/23 tabs quetiapine 400 mg tablet 400 mg PO BEDTIME #7 tabs 11/27/23 Allergies Allergy/AdvReac Type Severity Reaction Status Date / Time ibuprofen Allergy Hives Verified 11/28/23 11:12 hydrocodone [From VICODIN] AdvReac Mild nausea Verified 11/28/23 11:12 Review of Systems Review of Systems: Yes all other systems are reviewed and are negative PMFSH Past Medical History Medical History (Updated 11/28/23 @ 12:14 by EDUARDO Kingston) Cocaine use disorder Delusions of parasitosis Opioid use disorder Schizoaffective disorder Bursitis Surgical History History of ankle surgery Social History Social History Household Members: Other Household Members Other:: Father Housing: House Do you presently have visiting nurse or other home services: No Alcohol intake: never Patient Tobacco Use Status: Never used Tobacco Substance Use Type: Crack/Cocaine and Heroin Advance Directives: No Advance Directives Information Provided: Yes Do you have a plan to hurt others: No Plan service: Yes Sexual orientation: Straight/Heterosexual Physical Exam Vital Signs: Vital Signs: Last Vital Signs Temp 97.3 F 11/28/23 12:31 Pulse 113 H 11/28/23 12:31 Resp 14 11/28/23 12:31 BP 144/79 H 11/28/23 12:31 Pulse Ox 95 11/28/23 12:31 O2 Del Method Room Air 11/28/23 12:31 BMI result Body Mass Index 16.5 Appearance: Alert. Oriented X3. Diaphoretic Head: normocephalic, atraumatic. Eyes: Pupils equal, round and reactive to light. ENT: Half a cm superficial abrasion to the bridge of the nose. No gross deformity. No epistaxis. Pharynx normal. No tonsillar swelling or exudate. Neck: Normal inspection. Neck supple. CVS: Normal heart rate and rhythm. Pulses normal. Respiratory: No respiratory distress. Breath sounds normal. Abdomen: Soft and nontender. +BS x4 Skin: Skin warm and dry. Normal skin color. Normal skin turgor. Lower extremities with a flat erythematous, pinpoint rash scattered all over the anterior lower legs Extremities: No lower extremity edema. No joint swelling. Neuro/psych: Oriented X 3. No motor deficit. No sensory deficit. CN II-XII intact. Normal speech and cognition. Medications Administered Discontinued Medications Generic Name Dose Route Start Last Admin Trade Name Yahs PRN Reason Stop Dose Admin Naloxone HCl 4 mg 11/28/23 12:13 11/28/23 12:36 Naloxone Hcl Nasal 4 Mg [place] NOSTRILALT 11/28/23 12:14 4 mg ONCE ONE Administration Medical Decision Making Medical Decision Making MDM Narrative: 48-year-old male with polysubstance use disorder presents to the ER for evaluation after he overdosed on heroin at home and required Narcan. He arrives to the ER awake alert oriented and breathing well on room air. He reports a headache and upset stomach similar to when he has required Narcan in the past. He denies any suicide attempt or intent to harm. He was seen by addiction Medicine while in the ER. He would like to go home. He was monitored in the ER and remained stable. No respiratory depression. Home Narcan given. Stable for discharge home Differential Diagnosis Differential Diagnoses: The differential diagnosis associated with the presentation includes Intentional overdose, accidental overdose, polysubstance overdose, syncope, low clinical suspicion for intracranial injury or nasal bone fracture Independent Historian Clinical information obtained from an independent historian. History obtained from or confirmed by: EMS External Record Review External record reviewed: Outpatient record, Prior outpatient labs and Prior outpatient radiology Tests considered The following testing was considered but not selected: Considered CT scan of the head and face however low clinical suspicion for acute traumatic injury Chronic Conditions Patient?s care impacted by: Other (Polysubstance use disorder) Social Determinants Patient?s care significantly limited by Social Determinants of Health including: Problems related to primary support group and Other Social Determinant of Health Critical Care Time Critical Care Time Critical Care Time: No Discharge Plan Discharge Clinical Impression: Drug overdose Patient Disposition: Home, Self-Care Instructions: Adult Overdose (ED) Additional Instructions: Do not use illicit drugs, they can kill you. Continue methadone If you develop new or worsening symptoms call 911 or come back to the ER for further evaluation. Prescriptions: No Action methadone 10 mg/mL Syringe 50 mg PO DAILY Patient Comments: Verified dose with Cory Salmeron. clonidine HCl 0.1 mg Tablet 0.1 mg PO BID Qty: 60 0RF Protocol: Hold for SBP< HOLD for SBP < : 90 betamethasone, augmented 0.05 % Cream 1 appl topical BID Qty: 100 0RF Protocol: Apply to: Apply to: affected areas with poison carmen bupropion HCl 100 mg Tablet 100 mg PO DAILY Qty: 30 0RF trazodone 100 mg Tablet 200 mg PO BEDTIME Qty: 60 0RF buspirone 10 mg Tablet 10 mg PO TID Qty: 90 0RF lidocaine [Lidocaine Pain Relief] 4 % Adhesive Patch,Medicated 1 patch transdermal DAILY PRN (Reason: hip pain) Qty: 30 0RF Protocol: Apply to: Apply to: affected hip multivitamin [Daily-Alejandrina] Tablet 1 tab PO DAILY Qty: 30 0RF folic acid 1 mg Tablet 1 mg PO DAILY Qty: 30 0RF thiamine mononitrate (vit B1) 100 mg Tablet 100 mg PO DAILY Qty: 30 0RF hydroxyzine pamoate 50 mg capsule 100 mg PO BID Qty: 60 0RF melatonin 3 mg tablet 6 mg PO BEDTIME Qty: 60 0RF baclofen 10 mg tablet 10 mg PO DAILY Qty: 30 0RF olanzapine 10 mg Tablet 10 mg PO DAILY Qty: 120 0RF Rx Instructions: Take 10 mg daily Take 10 mg 3 times a day as needed for sx of psychosis, paranoia, agitation olanzapine 10 mg Tablet 10 mg PO TID PRN (Reason: psychosis) Qty: 120 0RF gabapentin 300 mg Capsule 300 mg PO TID Qty: 21 4RF quetiapine 400 mg Tablet 400 mg PO BEDTIME Qty: 7 4RF clonazepam [Klonopin] 0.5 mg tablet 0.5 mg PO TID Qty: 21 4RF Interventions: ED Discharge Assessment Last Done: 11/28/23 12:31 Discharge Date/Time: 11/28/23 12:36 Print Language: Kenyan
--- NOTE | 2023-11-28 11:34 | PC.NURSE ---
a&ox4. upon EMS arrival. vss and up to date aside from being slightly tachycardic. pt verbalizes using 1/2 bag of heroin [employer]. witnessed overdose by girlfriend. girlfriend called EMS. EMS administered 0.4mg narcan intranasally w/ good effect. denies SI/HI. pt searched by security/changed over. belongings placed in decon.no sob/wob noted. respirations even/unlabored. plan of care ongoing.
--- NOTE | 2023-11-28 12:12 | PC.NURSE ---
pt speaking to monomer recovery operator, NEREIDA Eng, at this time.
[2023-11-28 12:31] VITALS: BP 144/79; PULSE 113; RESP 14; TEMP 36.3; O2SAT 95
--- NOTE | 2023-11-28 12:31 | PC.NURSE ---
pt provided w/ take home narcan prior to d/c.
[2023-11-28] MEDS: Naloxone HCl Nasal 4 MG SPRAY NOSTRILALT (12:36)
--- NOTE | 2023-11-28 13:33 | HO.SUDE ---
Met with pt in [id number] after pt presented after overdose. Pt familiar with t/w from previous consults. Pt has extensive hx of [facility] treatment. Currently on methadone and had been discharged from yesterday. Pt sitting in bed, awake, alert, easily engages in conversation. Pt reports he used 1/2 bag heroin/fentanyl, [place], along with a little cocaine, which resulted in overdose. Pt reports he had been to the ED earlier today with an overdose after using 1 bag. Pt reports he used 1/2 bag with the hopes of not overdosing. Denies SI. Pt familiar with harm reduction, reinforced information. Pt is not interested in inpatient treatment at this time and is requesting to be discharged. Pt plans to continue with methadone, declines other referrals/resources at this time. Denies questions or concerns for t/w. Discussed with ED provider. Pt will be discharged with Narcan.
== END 2023-11-28 12:36 | disposition home or self-care (01) ==
PROVIDERS: Emergency Provider Emergency Medicine
DX: T40.1X1A Poisoning by heroin, accidental (unintentional), initial encounter (principal); R40.4 Transient alteration of awareness; F11.20 Opioid dependence, uncomplicated; Y92.039 Unspecified place in apartment as the place of occurrence of the external cause
CPT/HCPCS: 99282; 99283

== ENCOUNTER 2023-11-30 23:49 | Inpatient (IN) | payer OTHER, SELFPAY ==
--- NOTE | ~2023-11-30 | CT_ITS ---
EXAMINATION: CT HEAD WITHOUT CONTRAST CLINICAL INFORMATION: Altered mental status, head injury COMPARISON: 02/22/2015 report only TECHNIQUE: Contiguous axial imaging was performed from the skull base to vertex without intravenous administration of contrast. This CT examination was performed using dose optimization techniques as appropriate, variously including the following: *Automated exposure control *Adjustment of mA and/or kV according to patient size (this includes techniques or standardized protocols for targeted exams where dose is matched to indication/reason for exam; i.e. extremities or head) *Use of iterative reconstruction technique DLP: 673 mGy-cm FINDINGS: There is no evidence of acute intracranial hemorrhage or territorial infarction. No abnormal mass-effect or midline shift is seen. Kincaid to white matter differentiation is well preserved. No extra-axial fluid collections are identified. The ventricles are normal in size. Nonspecific mild basal ganglia calcifications. The osseous structures and soft tissues are normal. The mastoid air cells and visualized portions of the paranasal sinuses are well-aerated. CT/CT head/brain wo IV con IMPRESSION: No acute intracranial pathology.
[2023-11-30 23:58] VITALS: BP 153/88; PULSE 95; RESP 16; TEMP 36.9; O2SAT 98; BMI 31.1
--- NOTE | 2023-12-01 00:29 | PC.NURSE ---
patient belongings in pod in locker 6
--- NOTE | 2023-12-01 00:36 | ED_ITS ---
HPI - General Adult General Chief complaint: Psychiatric Symptoms Stated complaint: headache Time Seen by Provider: 12/01/23 00:36 History of Present Illness ED Provider: Bi PRINCE narrative: The patient is a 48-year-old male with a history of schizoaffective disorder and history of substance use disorder. Patient was recently hospitalized psychiatrically at this hospital from November 12 through November 26 for an exacerbation of his schizoaffective disorder. Additional diagnoses at that time included delusions of parasitosis and cocaine use disorder. The patient came to the emergency room the next day on November 27 after accidentally overdosing on heroin. He was revived with naloxone. He was observed for a couple of hours on the morning of November 27 and then discharged. He later returned the same day a few hours later after again overdosing and being revived with naloxone. He was again discharged after being observed for a few hours. The patient now comes to the emergency room after coming to the emergency room on his own. He thinks that he might have overdosed again today. He thinks that he might have hit his head at some point today. He has a headache. He believes that at some point today he fell into a pool. He feels extremely upset and feels that all of his family members are unsupportive. The patient is complaining of a headache. He does not feel that he has any significant neck pain. Related Data Home Medications ?Medication ?Instructions ?Recorded ?Confirmed methadone 10 mg/mL oral syringe 50 mg PO DAILY 04/24/22 11/13/23 (FOR ORAL USE ONLY) Previous Rx's ?Medication ?Instructions ?Recorded baclofen 10 mg tablet 10 mg PO DAILY #30 tabs 11/25/23 betamethasone, augmented 0.05 % 1 appl topical BID #100 grams 11/25/23 topical cream bupropion HCl 100 mg tablet 100 mg PO DAILY #30 tabs 11/25/23 buspirone 10 mg tablet 10 mg PO TID #90 tabs 11/25/23 clonidine HCl 0.1 mg tablet 0.1 mg PO BID #60 tabs 11/25/23 folic acid 1 mg tablet 1 mg PO DAILY #30 tabs 11/25/23 hydroxyzine pamoate 50 mg capsule 100 mg (2 x 50 mg) PO BID #60 caps 11/25/23 lidocaine 4 % topical patch 1 patch transdermal DAILY PRN hip 11/25/23 (Lidocaine Pain Relief) pain #30 ea melatonin 3 mg tablet 6 mg (2 x 3 mg) PO BEDTIME #60 tabs 11/25/23 multivitamin (Daily-Alejandrina tablet) 1 tab PO DAILY #30 tabs 11/25/23 thiamine mononitrate (vit B1) 100 100 mg PO DAILY #30 tabs 11/25/23 mg tablet trazodone 100 mg tablet 200 mg (2 x 100 mg) PO BEDTIME #60 11/25/23 tabs clonazepam 0.5 mg tablet (Klonopin) 0.5 mg PO TID #21 tabs 11/27/23 gabapentin 300 mg capsule 300 mg PO TID #21 caps 11/27/23 olanzapine 10 mg tablet 10 mg PO DAILY #120 tabs 11/27/23 olanzapine 10 mg tablet 10 mg PO TID PRN psychosis #120 11/27/23 tabs quetiapine 400 mg tablet 400 mg PO BEDTIME #7 tabs 11/27/23 Allergies Allergy/AdvReac Type Severity Reaction Status Date / Time ibuprofen Allergy Hives Verified 12/01/23 00:02 hydrocodone [From VICODIN] AdvReac Mild nausea Verified 12/01/23 00:02 Review of Systems 2 Review of Systems: Yes all other systems are reviewed and are negative [facility] Past Medical History Medical History (Updated 12/01/23 @ 05:48 by Miko Pat MD) Cocaine use disorder Delusions of parasitosis Opioid use disorder Schizoaffective disorder Bursitis Surgical History History of ankle surgery Social History Social History Household Members: Other Household Members Other:: Father Housing: House Do you presently have visiting nurse or other home services: No Alcohol intake: never Patient Tobacco Use Status: Never used Tobacco Smoked in Last 30 Days: Yes Use of substances other than those prescribed or required for medical reasons: Yes Substance Use Type: Crack/Cocaine and Heroin Advance Directives: No Advance Directives Information Provided: No Do you have a plan to hurt others: No Plan service: Yes Sexual orientation: Straight/Heterosexual Physical Exam ED Vital Signs: Vital Signs - 24 hr 11/30/23 23:58 Temperature 98.4 F Pulse Rate 95 Respiratory Rate 16 Blood Pressure 153/88 H Pulse Oximetry 98 Oxygen Delivery Method Room Air BMI result Body Mass Index 31.1 Const Other: The patient is awake and alert. He seemed quite upset and was crying a great deal. He did not seem in acute distress other than his emotional state. HENMT Other: No obvious signs of trauma to the head or the face. No raccoon eyes. No abraham sign. No hemotympanum. Eyes Other: Pupils were small round equal, conjunctivae clear, extraocular movements intact. Neck Other: No significant posterior C-spine tenderness. Good range of motion of the neck without pain. C-spine is clinically clear. Resp Effort & Inspection: normal respiratory effort Auscultation: clear to auscultation bilaterally Cardio Rate: regular rate Rhythm: regular rhythm Heart sounds: S1 normal heart sound present and S2 normal heart sound present GI Other: Abdomen is soft and nontender Skin Other: Skin is pale and dry Neuro Other: The patient was awake and alert. He was quite upset but seemed to have an otherwise fairly clear mental status. He was crying a great deal. Cranial nerves are grossly intact. He moves his extremities symmetrically and appropriately. His gait is steady. He seems grossly neurologically intact. Extrem Other: No signs of trauma to the extremities. No deformities. Psych Other: The patient was disheveled. He was upset and crying a great deal. Medications Administered Discontinued Medications Generic Name Dose Route Start Last Admin Trade Name Freq PRN Reason Stop Dose Admin Lorazepam 2 mg 12/01/23 00:41 12/01/23 00:49 Lorazepam 1 Mg Tablet PO 12/01/23 00:42 2 mg ONCE ONE Administration Lorazepam 2 mg 12/01/23 01:33 12/01/23 03:20 Lorazepam 1 Mg Tablet PO 12/01/23 01:34 Not Given ONCE ONE Medical Decision Making Medical Decision Making MDM Narrative: The patient is a 48-year-old male with a history of schizoaffective disorder and substance use disorder who was discharged from our psychiatric floor a few days ago. Since discharge he has overdosed on opioids a few times. He presents today extremely upset and crying a great deal with thoughts of suicide. He is a very rambling historian and it is difficult to understand exactly what happened to him today. He may have hit his head. He does not have any significant signs of a head injury however. He is complaining of a headache. His cervical spine seems clinically clear and he does not have any neck pain. A CT of his head is unremarkable. His ETOH, acetaminophen, and salicylate levels are unremarkable. In his basic metabolic panel his carbon dioxide was 16 but he does not have a significant anion gap. The patient was significantly upset and was given 2 mg of lorazepam orally. This seemed to calm him down a great deal. I think he is medically stable for evaluation by the care team. I felt he was appropriate for transfer into the psychiatric pod. The patient will be admitted to physician observation for evaluation by the care team with disposition by the care team. Lab Data 12/01/23 02:04 12/01/23 01:37 Labs: Lab Results 12/01/23 12/01/23 Range/Units 01:37 02:04 WBC 10.7 (4.8-10.8) X10*3/uL RBC 3.40 L (4.60-5.80) X10*6/uL Hgb 9.7 L (14.0-18.0) g/dl Hct 29.8 L (42.0-52.0) % MCV 87.6 (80.0-98.0) fL MCH 28.5 (27.0-33.0) pg MCHC 32.6 (31.0-36.0) g/dl RDW 14.3 (11.0-16.0) % Plt Count 175 (160-400) X10*3/uL MPV 10.3 (9.4-12.4) fL Immature Gran % (Auto) 0.4 (0.0-0.4) % Neut % (Auto) 76.8 H (45-73) % Lymph % (Auto) 14.2 L (20-40) % [place] % (Auto) 8.1 (2-11) % Eos % (Auto) 0.2 (0-4) % Baso % (Auto) 0.3 (0-2) % Lymph # (Auto) 1.5 (1.2-4.9) X10*3/uL [place] # (Auto) 0.9 (0.1-1.2) X10*3/uL Eos # (Auto) 0.0 (0.0-0.4) X10*3/uL Baso # (Auto) 0.0 (0.0-0.2) X10*3/uL Abs Immat Gran (auto) 0.04 H (0.00-0.03) X10*3/uL Absolute Neuts (auto) 8.2 (2.0-8.3) x10*3/uL Absolute Nucleated RBC 0.000 (0.0-0.012) X10*3/uL Nucleated RBC % (auto) 0.0 (0.0-0.2) /100WBC Sodium 136 (135-145) mmol/L Potassium 4.0 (3.3-5.1) mmol/L Chloride 107 (96-108) mmol/L Carbon Dioxide 16 L (22-29) mmol/L Anion Gap 17 (12-20) BUN 18 H (9-16) mg/dL Creatinine 0.87 (0.5-1.4) mg/dL Estim Creat Clear Calc 118.4 Estimated GFR > 60 Random Glucose 99 (60-115) mg/dL Calcium 8.7 (8.4-10.2) mg/dL Total Bilirubin 0.4 (0.0-1.0) mg/dL Direct Bilirubin 0.2 (0.0-0.5) mg/dL AST 42 H (5-37) U/L ALT 17 (0-40) U/L Alkaline Phosphatase 62 (39-117) U/L Total Protein 7.2 (6.5-8.0) g/dL Albumin 3.8 (3.5-5.0) g/dL Salicylates < 5.0 L (15-30) mg/dL Acetaminophen < 3 (<30) mcg/mL Ethyl Alcohol < 10 mg/dL Discharge Plan Discharge Clinical Impression: Schizoaffective disorder, Suicidal ideation, Substance use disorder Patient Disposition: Still a Patient Prescriptions: No Action methadone 10 mg/mL Syringe 50 mg PO DAILY Patient Comments: Verified dose with Cory Salmeron. clonidine HCl 0.1 mg Tablet 0.1 mg PO BID Qty: 60 0RF Protocol: Hold for SBP< HOLD for SBP < : 90 betamethasone, augmented 0.05 % Cream 1 appl topical BID Qty: 100 0RF Protocol: Apply to: Apply to: affected areas with poison carmen bupropion HCl 100 mg Tablet 100 mg PO DAILY Qty: 30 0RF trazodone 100 mg Tablet 200 mg PO BEDTIME Qty: 60 0RF buspirone 10 mg Tablet 10 mg PO TID Qty: 90 0RF lidocaine [Lidocaine Pain Relief] 4 % Adhesive Patch,Medicated 1 patch transdermal DAILY PRN (Reason: hip pain) Qty: 30 0RF Protocol: Apply to: Apply to: affected hip multivitamin [Daily-Alejandrina] Tablet 1 tab PO DAILY Qty: 30 0RF folic acid 1 mg Tablet 1 mg PO DAILY Qty: 30 0RF thiamine mononitrate (vit B1) 100 mg Tablet 100 mg PO DAILY Qty: 30 0RF hydroxyzine pamoate 50 mg capsule 100 mg PO BID Qty: 60 0RF melatonin 3 mg tablet 6 mg PO BEDTIME Qty: 60 0RF baclofen 10 mg tablet 10 mg PO DAILY Qty: 30 0RF olanzapine 10 mg Tablet 10 mg PO DAILY Qty: 120 0RF Rx Instructions: Take 10 mg daily Take 10 mg 3 times a day as needed for sx of psychosis, paranoia, agitation olanzapine 10 mg Tablet 10 mg PO TID PRN (Reason: psychosis) Qty: 120 0RF gabapentin 300 mg Capsule 300 mg PO TID Qty: 21 4RF quetiapine 400 mg Tablet 400 mg PO BEDTIME Qty: 7 4RF clonazepam [Klonopin] 0.5 mg tablet 0.5 mg PO TID Qty: 21 4RF Interventions: [place]-Suicide Risk Severity Scale Last Done: 12/01/23 00:30 Print Language: Burundian
--- NOTE | 2023-12-01 00:42 | ECG_ITS ---
Test Reason : OVERDOSE Blood Pressure : / mmHG Vent. Rate : 073 BPM Atrial Rate : 073 BPM P-R Int : 144 ms QRS Dur : 090 ms QT Int : 424 ms P-R-T Axes : 045 045 023 degrees QTc Int : 467 ms Normal sinus rhythm Normal ECG When compared with ECG of 28-NOV-2023 04:56, Nonspecific T wave abnormality no longer evident in Lateral leads Referred By: Miko Pat Electronically Signed By:Fidencio Marion
--- NOTE | 2023-12-01 00:42 | PC.NURSE ---
pt is crying, and upset, tells this nurse, that I am being rude, because I am asking the same questions over and over. Sitter at bedside, will cont plan of care
[2023-12-01] MEDS: LORazepam 1 MG TABLET 2 MG PO (00:49)
--- NOTE | 2023-12-01 01:16 | MHC.EDTECH ---
Pt not agreeable to blood work/EKG at this time. RN aware.
[2023-12-01 02:06] LABS: Alanine Aminotransferase 17 U/L (0-40); Albumin Level 3.8 g/dL (3.5-5.0); Alkaline Phosphatase 62 U/L (39-117); Anion Gap 17 (12-20); Aspartate Amino Transferase 42 U/L (5-37); Bilirubin Direct 0.2 mg/dL (0.0-0.5); Bilirubin Total 0.4 mg/dL (0.0-1.0); Blood Urea Nitrogen 18 mg/dL (9-16); Calcium 8.7 mg/dL (8.4-10.2); Carbon Dioxide 16 mmol/L (22-29); Chloride 107 mmol/L (96-108); Creatinine Clr Calc Pharmacy 118.4; Estimated Glomerular Filt Rate > 60; Ethanol < 10 mg/dL; Glucose Random 99 mg/dL (60-115); Sodium 136 mmol/L (135-145); Total Protein 7.2 g/dL (6.5-8.0)
[2023-12-01 02:13] LABS: Basophils Percent Auto 0.3 % (0-2); Eosinophils Percent Auto 0.2 % (0-4); Hematocrit 29.8 % (42.0-52.0); Hemoglobin 9.7 g/dl (14.0-18.0); Imm Gran Abs Auto 0.04 X10*3/uL (0.00-0.03); Imm Gran Pct Auto 0.4 % (0.0-0.4); Lymphocytes Absolute Auto 1.5 X10*3/uL (1.2-4.9); Lymphocytes Percent Auto 14.2 % (20-40); Mean Corpuscular HGB Conc 32.6 g/dl (31.0-36.0); Mean Corpuscular Hemoglobin 28.5 pg (27.0-33.0); Mean Corpuscular Volume 87.6 fL (80.0-98.0); Mean Platelet Volume 10.3 fL (9.4-12.4); Monocytes Absolute Auto 0.9 X10*3/uL (0.1-1.2); Monocytes Percent Auto 8.1 % (2-11); Neutrophils Absolute Auto 8.2 x10*3/uL (2.0-8.3); Neutrophils Percent Auto 76.8 % (45-73); Platelet Count 175 X10*3/uL (160-400); Red Cell Distribution Width 14.3 % (11.0-16.0); White Blood Count 10.7 X10*3/uL (4.8-10.8)
[2023-12-01 02:17] LABS: MANUAL DIFF FLAG NO
[2023-12-01 02:34] LABS: Acetaminophen LAB < 3 mcg/mL (<30); Salicylate < 5.0 mg/dL (15-30)
--- NOTE | 2023-12-01 03:26 | PC.NURSE ---
pt cleared to go to the POD, report given to Candy PADRON
[2023-12-01 06:35] VITALS: RESP 18
--- NOTE | 2023-12-01 06:55 | PC.NURSE ---
Assumed care of patient at 0645. Patient is observed resting quietly in their bed. No signs of distress. Breathing is even and unlabored.
--- NOTE | 2023-12-01 08:00 | PC.NURSE ---
Methadone Verification Methadone dose verified at [facility] Michelle - 55mg last dosed 11/29/23 at 1014. Verified by [facility] NEREIDA Huerta.
--- NOTE | 2023-12-01 08:06 | HE.PHANOTE ---
RE METHADONE METHADONE CONFIRMATION RECEIVED. PT GETS FROM [facility], DOSE IS 55 MG, LAST DOSES 11/29/23 Jose Angel
--- NOTE | 2023-12-01 08:25 | MHC.EDTECH ---
Patient given breakfast
[2023-12-01 08:39] VITALS: BP 114/63; PULSE 78; RESP 16; TEMP 36.6; O2SAT 95
--- NOTE | 2023-12-01 08:41 | PC.NURSE ---
PT c/o puffy right eye. Patient is concerned he has a parasitic infection due to sleeping in unsanitary conditions recently. Dr. Barnett made aware.
[2023-12-01] MEDS: clonazePAM 0.5 MG TABLET PO ×3 (09:05→19:59)
[2023-12-01] MEDS: Multivitamin TABLET 1 TAB PO (09:05)
[2023-12-01] MEDS: Folic Acid 1 MG TABLET PO (09:05)
[2023-12-01] MEDS: Gabapentin 300 MG CAPSULE PO ×3 (09:05→19:59)
[2023-12-01] MEDS: Baclofen 10 MG TABLET PO (09:05)
[2023-12-01] MEDS: Thiamine HCL 100 MG TABLET PO (09:05)
[2023-12-01] MEDS: buPROPion HCL 100 MG TABLET PO (09:05)
[2023-12-01] MEDS: hydrOXYzine HCL 50 MG TABLET 100 MG PO ×2 (09:06→19:59)
[2023-12-01] MEDS: OLANZapine 10 MG TABLET PO ×2 (09:06→19:59)
[2023-12-01] MEDS: busPIRone HCl 10 MG TABLET PO ×3 (09:06→19:59)
[2023-12-01] MEDS: methADONE HCl 20 MG/2 ML ORAL.CONC 55 MG PO (09:06)
[2023-12-01] MEDS: cloNIDine HCL 0.1 MG TABLET PO ×2 (09:06→19:59)
[2023-12-01 09:46] LABS: Amphetamine Screen Urine Not Detected (Not Detect); Barbiturates, Urine Not Detected (Not Detect); Benzodiazepines Screen Urine Not Detected (Not Detect); Buprenorphine Scr Not Detected (Not Detect); Cannabinoid Screen Urine Not Detected (Not Detect); Cocaine Screen Urine POSITIVE (Not Detect); Fentanyl, urine POSITIVE (Not Detect); Methadone Screen, Urine Positive (Not Detect); Opiate Screen Urine POSITIVE (Not Detect); Oxycodone Screen Urine Not Detected (Not Detect); Phencyclidine Screen Urine Not Detected (Not Detect)
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
[2023-12-01 14:34] VITALS: BP 97/54; PULSE 74; RESP 16; TEMP 36.7; O2SAT 96
[2023-12-01 19:57] VITALS: BP 131/64; PULSE 70; RESP 16; TEMP 36.9; O2SAT 98
[2023-12-01] MEDS: traZODone HCL 100 MG TABLET 200 MG PO (19:59)
[2023-12-01] MEDS: QUEtiapine Fumarate 400 MG TABLET PO (19:59)
[2023-12-01] MEDS: Melatonin 3 MG TABLET 6 MG PO (19:59)
--- NOTE | 2023-12-02 05:30 | PC.NURSE ---
Pt sleeping at the bedside. No apparent distress noted. Breaths are even regular and unlabored with equal chest rises. Monitoring is ongoing.
[2023-12-02 07:43] VITALS: BP 125/63; PULSE 77; RESP 18; TEMP 36.8; O2SAT 96
[2023-12-02] MEDS: Folic Acid 1 MG TABLET PO (07:53)
[2023-12-02] MEDS: OLANZapine 10 MG TABLET PO ×5 (07:53→18:20)
[2023-12-02] MEDS: hydrOXYzine HCL 50 MG TABLET 100 MG PO ×2 (07:53→21:38)
[2023-12-02] MEDS: Multivitamin TABLET 1 TAB PO (07:53)
[2023-12-02] MEDS: buPROPion HCL 100 MG TABLET PO (07:53)
[2023-12-02 07:54] VITALS: BP 125/63
[2023-12-02] MEDS: busPIRone HCl 10 MG TABLET PO ×3 (07:54→21:36)
[2023-12-02] MEDS: clonazePAM 0.5 MG TABLET PO ×3 (07:54→21:37)
[2023-12-02] MEDS: methADONE HCl 20 MG/2 ML ORAL.CONC 55 MG PO (07:54)
[2023-12-02] MEDS: cloNIDine HCL 0.1 MG TABLET PO ×2 (07:54→21:37)
[2023-12-02] MEDS: Gabapentin 300 MG CAPSULE PO ×3 (07:54→21:36)
[2023-12-02] MEDS: Thiamine HCL 100 MG TABLET PO (07:54)
[2023-12-02] MEDS: Baclofen 10 MG TABLET PO (07:54)
[2023-12-02 08:03] LABS: Appearance Urine Turbid; Color Urine Yellow; Glucose Urine UA Negative (Negative); Leukocyte Esterase Urine Moderate (2+) (Negative); Nitrite Urine Negative (Negative); Specific Gravity - Urine >= 1.030 (1.005-1.025); UMIC TRIGGER UACC YES; Urine Blood Negative (Negative); Urine Ketones 15 mg/dL (Negative); Urine Protein 30 (1+) mg/dL (Neg-Trace)
[2023-12-02 08:19] LABS: Bacteria Urine None Seen (None Seen); RBC Urine 0-2 /HPF (0-2); Squamous Epithelial Cell Urine 0-2 /HPF (0-2); UACC Culture Trigger YES; WBC Urine >50 /HPF (0-5)
[2023-12-02] MEDS: Nicotine 21 MG PATCH.TD24 TRANSDERMA (08:34)
[2023-12-02] MEDS: Nicotine Polacrilex 2 MG GUM BUCCAL ×3 (08:34→13:32)
--- NOTE | 2023-12-02 12:14 | PHA.MEDREC ---
Pharmacy Consult ? Medication Reconciliation Pharmacy has completed the medication reconciliation. Confirmed med list done by nurse with a discharge packet from 11/27/2023.
[2023-12-02 14:35] VITALS: BP 129/65; PULSE 74; RESP 16; TEMP 36.6; O2SAT 97
[2023-12-02 15:00] VITALS: BMI 31.2
[2023-12-02] MEDS: Nicotine Polacrilex 2 MG GUM 4 MG BUCCAL ×2 (15:18→18:22)
[2023-12-02] MEDS: hydrOXYzine HCL 25 MG TABLET PO (18:20)
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
[2023-12-02 20:00] VITALS: BP 132/67; PULSE 67; RESP 16; TEMP 37.1; O2SAT 97
[2023-12-02] MEDS: Melatonin 3 MG TABLET 6 MG PO (21:35)
[2023-12-02] MEDS: traZODone HCL 100 MG TABLET 200 MG PO (21:36)
[2023-12-02] MEDS: QUEtiapine Fumarate 400 MG TABLET PO (21:36)
[2023-12-02 21:37] VITALS: BP 132/67
[2023-12-03] MEDS: OLANZapine 10 MG TABLET PO ×4 (06:04→14:54)
[2023-12-03] MEDS: Acetaminophen 325 MG TABLET 650 MG PO (06:04)
--- NOTE | 2023-12-03 06:10 | PC.NURSE ---
This patient received the first of three PRN doses of Zyprexa per his request at approximately 0615, as well as tylenol for generalized discomfort.
[2023-12-03] MEDS: methADONE HCl 20 MG/2 ML ORAL.CONC 55 MG PO (07:49)
[2023-12-03 08:30] VITALS: BP 106/51; PULSE 70; RESP 16; TEMP 36.7; O2SAT 98
[2023-12-03] MEDS: Gabapentin 300 MG CAPSULE PO ×3 (08:49→20:18)
[2023-12-03] MEDS: hydrOXYzine HCL 50 MG TABLET 100 MG PO ×2 (08:49→20:18)
[2023-12-03] MEDS: Folic Acid 1 MG TABLET PO (08:50)
[2023-12-03] MEDS: busPIRone HCl 10 MG TABLET PO ×3 (08:50→20:18)
[2023-12-03] MEDS: buPROPion HCL 100 MG TABLET PO (08:50)
[2023-12-03] MEDS: Baclofen 10 MG TABLET PO (08:50)
[2023-12-03] MEDS: Thiamine HCL 100 MG TABLET PO (08:50)
[2023-12-03] MEDS: clonazePAM 0.5 MG TABLET PO ×3 (08:50→20:18)
[2023-12-03] MEDS: cloNIDine HCL 0.1 MG TABLET PO ×2 (08:50→20:18)
[2023-12-03] MEDS: Multivitamin TABLET 1 TAB PO (08:50)
[2023-12-03] MEDS: Nicotine 21 MG PATCH.TD24 TRANSDERMA (08:51)
[2023-12-03] MEDS: Nicotine Polacrilex 2 MG GUM 4 MG BUCCAL ×3 (08:51→20:20)
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
[2023-12-03 20:00] VITALS: BP 111/63; PULSE 81; RESP 18; TEMP 36.2; O2SAT 97
[2023-12-03] MEDS: QUEtiapine Fumarate 400 MG TABLET PO (20:18)
[2023-12-03] MEDS: Melatonin 3 MG TABLET 6 MG PO (20:18)
[2023-12-03] MEDS: traZODone HCL 100 MG TABLET 200 MG PO (20:18)
[2023-12-04] MEDS: Acetaminophen 325 MG TABLET 650 MG PO ×3 (04:37→21:46)
[2023-12-04] MEDS: OLANZapine 10 MG TABLET PO ×5 (04:37→21:46)
[2023-12-04] MEDS: methADONE HCl 20 MG/2 ML ORAL.CONC 55 MG PO (07:43)
[2023-12-04 08:15] VITALS: BP 111/60; PULSE 65; RESP 18; TEMP 36.4; O2SAT 97
[2023-12-04] MEDS: hydrOXYzine HCL 50 MG TABLET 100 MG PO ×2 (08:20→21:46)
[2023-12-04] MEDS: Thiamine HCL 100 MG TABLET PO (08:20)
[2023-12-04] MEDS: Baclofen 10 MG TABLET PO (08:20)
[2023-12-04] MEDS: clonazePAM 0.5 MG TABLET PO ×3 (08:20→21:47)
[2023-12-04] MEDS: buPROPion HCL 100 MG TABLET PO (08:20)
[2023-12-04] MEDS: Multivitamin TABLET 1 TAB PO (08:20)
[2023-12-04] MEDS: busPIRone HCl 10 MG TABLET PO ×3 (08:20→21:47)
[2023-12-04] MEDS: Gabapentin 300 MG CAPSULE PO ×3 (08:20→21:46)
[2023-12-04] MEDS: Folic Acid 1 MG TABLET PO (08:20)
[2023-12-04] MEDS: cloNIDine HCL 0.1 MG TABLET PO ×2 (08:20→21:47)
[2023-12-04] MEDS: Nicotine Polacrilex 2 MG GUM 4 MG BUCCAL ×4 (08:26→17:38)
[2023-12-04] MEDS: Nicotine 21 MG PATCH.TD24 TRANSDERMA (08:26)
--- NOTE | 2023-12-04 14:40 | P.PNPSI_ITS ---
Subjective Subjective Date of Service: 12/04/23 Reason For Visit: Schizoaffective disorder; opiate use disorder Subjective Notes: Section 12B Healthcare Proxy: No Guardianship: No Medical Problems Affecting Mental Status: No Interim History: Pt appears fatigued today and depressed. Talking about family being unresponsive to his needs and states he thinks they have sociopathic tendencies. Talks of having no family/friend/community support. Reports sore throat-will order culture and throat caleb. prn. States he is unable to maintain sobriety without the structure and support of his community. Medication Compliance: Yes Side effects from medications: No Attending Groups: No Review of Systems Acute medical concerns: No Medical Review of Systems: unchanged Review of Systems Review of Systems Yes all other systems are reviewed and are negative Mental Status Exam Mental Status Exam Patient Appearance: Fatigued Patient Orientation: Person, Place, Time and Situation Level of Consciousness: Alert Patient Behavior: Appropriate, Talkative, Cooperative, Good Eye Contact and Crying Mood Description: Depressed and Anxious Affect Description: Anxious and Flat Patient Cognition Impaired: No Speech Pattern: Spontaneous Speech Memory Description: Episodic Impaired Hallucinations: Auditory Delusions: Paranoid Ideation and Present Depressive Symptoms: Increased Anxiety, Difficulty Sleeping, Increased Fatigue, Thoughts of /Suicide and Loss of Energy Judgement: Fair Diagnostics Vital Signs (24Hr): Vital Signs - 24 hr 12/03/23 20:00 12/04/23 08:15 Temperature 97.2 F 97.5 F Pulse Rate 81 65 Respiratory Rate 18 18 Blood Pressure 111/63 111/60 Pulse Oximetry 97 97 Oxygen Delivery Method Room Air Room Air BMI result Body Mass Index 31.2 Labs 12/01/23 02:04 12/01/23 01:37 Imaging Radiology Impressions: ITS Impressions Head CT 12/01/23 01:10 IMPRESSION: No acute intracranial pathology. Medications Medications Current Medications Acetaminophen (Acetaminophen 325 Mg Tablet) 650 mg PO Q6H PRN PRN Reason: Headache/Pain Mild Scale (1-3) Last Admin: 12/04/23 11:20 Dose: 650 mg Al Hydroxide/Mg Hydroxide (Magnesium Hydrox/Alum Hydrox 30 Ml Oral.Susp) 30 ml PO Q6H PRN PRN Reason: Heartburn/Nausea Baclofen (Baclofen 10 Mg Tablet) 10 mg PO DAILY [facility] Last Admin: 12/04/23 08:20 Dose: 10 mg Bupropion HCl (Bupropion Hcl 100 Mg Tablet) 100 mg PO DAILY [facility] Last Admin: 12/04/23 08:20 Dose: 100 mg Buspirone HCl (Buspirone Hcl 10 Mg Tablet) 10 mg PO TID [facility] Last Admin: 12/04/23 08:20 Dose: 10 mg Clonazepam (Clonazepam 0.5 Mg Tablet) 0.5 mg PO TID [facility] Last Admin: 12/04/23 08:20 Dose: 0.5 mg Clonidine HCl (Clonidine Hcl 0.1 Mg Tablet) 0.1 mg PO BID [facility]; Protocol Last Admin: 12/04/23 08:20 Dose: 0.1 mg Folic Acid (Folic Acid 1 Mg Tablet) 1 mg PO DAILY [facility] Last Admin: 12/04/23 08:20 Dose: 1 mg Gabapentin (Gabapentin 300 Mg Capsule) 300 mg PO TID [facility] Last Admin: 12/04/23 08:20 Dose: 300 mg Hydroxyzine HCl (Hydroxyzine Hcl 50 Mg Tablet) 100 mg PO BID [facility] Last Admin: 12/04/23 08:20 Dose: 100 mg Hydroxyzine HCl (Hydroxyzine Hcl 25 Mg Tablet) 25 mg PO Q6H PRN PRN Reason: Anxiety Last Admin: 12/02/23 18:20 Dose: 25 mg Lidocaine (Lidocaine 4 % Patch Adh..Patch) 1 patch TRANSDERMA DAILY PRN; Protocol PRN Reason: hip pain Magnesium Hydroxide (Milk Of Magnesia 30 Ml Oral.Susp) 30 ml PO DAILY PRN PRN Reason: Constipation Melatonin (Melatonin 3 Mg Tablet) 6 mg PO BEDTIME [facility] Last Admin: 12/03/23 20:18 Dose: 6 mg Methadone HCl (Methadone Hcl 20 Mg/2 Ml Oral.Conc) 55 mg PO 0800 [facility] Last Admin: 12/04/23 07:43 Dose: 55 mg Multivitamins/Vitamin C (Multivitamin Tablet) 1 tab PO DAILY [facility] Last Admin: 12/04/23 08:20 Dose: 1 tab Nicotine (Nicotine 21 Mg Patch.Td24) 21 mg TRANSDERMA DAILY PRN PRN Reason: nicotine cravings Last Admin: 12/04/23 08:26 Dose: 21 mg Nicotine Polacrilex (Nicotine Polacrilex 2 Mg Gum) 2 mg BUCCAL Q2H PRN PRN Reason: Nicotine Cravings Last Admin: 12/02/23 13:32 Dose: 2 mg Nicotine Polacrilex (Nicotine Polacrilex 2 Mg Gum) 4 mg BUCCAL Q2H PRN PRN Reason: Nicotine Cravings Last Admin: 12/04/23 11:20 Dose: 4 mg Olanzapine (Olanzapine 10 Mg Tablet) 10 mg PO DAILY [facility] Last Admin: 12/04/23 08:20 Dose: 10 mg Olanzapine (Olanzapine 10 Mg Tablet) 10 mg PO TID PRN PRN Reason: psychosis Last Admin: 12/04/23 11:20 Dose: 10 mg Quetiapine Fumarate (Quetiapine Fumarate 400 Mg Tablet) 400 mg PO BEDTIME [facility] Last Admin: 12/03/23 20:18 Dose: 400 mg Thiamine HCl (Thiamine Hcl 100 Mg Tablet) 100 mg PO DAILY [facility] Last Admin: 12/04/23 08:20 Dose: 100 mg Trazodone HCl (Trazodone Hcl 100 Mg Tablet) 200 mg PO BEDTIME [facility] Last Admin: 12/03/23 20:18 Dose: 200 mg Trazodone HCl (Trazodone Hcl 50 Mg Tablet) 50 mg PO BEDTIME [facility] PRN PRN Reason: Insomnia Allergies Allergies Allergy/AdvReac Type Severity Reaction Status Date / Time ibuprofen Allergy Hives Verified 12/01/23 00:02 hydrocodone [From VICODIN] AdvReac Mild nausea Verified 12/01/23 00:02 Assessment & Plan Assessment & Plan (1) Schizoaffective disorder: Status: Acute Code(s): F25.9 - Schizoaffective disorder, unspecified (2) Opioid use disorder: Status: Acute Code(s): F11.90 - Opioid use, unspecified, uncomplicated Plan Schizoaffective Disorder, Opiate Use Disorder Plan: Re-establish regime Collateral contacts Discharge planning Full milieu encouraged Discussed Section 35 application with team today. 12/04/23 Continue regime Section 35 filed for consideration Reason for continued inpatient stay Substantial Risk for: rapid decompensation and med/psych decompensation Time Spent With Patient Time: Total time managing care of this patient today ____ minutes.
[2023-12-04 19:13] LABS: IDNOW Serial# 6674DD1D; Strep A Nucleic Acid Negative (Negative)
[2023-12-04 20:00] VITALS: BP 107/52; PULSE 58; RESP 16; TEMP 36.9; O2SAT 96
[2023-12-04] MEDS: traZODone HCL 100 MG TABLET 200 MG PO (21:46)
[2023-12-04] MEDS: QUEtiapine Fumarate 400 MG TABLET PO (21:46)
[2023-12-04 21:47] VITALS: BP 107/52
[2023-12-04] MEDS: Melatonin 3 MG TABLET 6 MG PO (21:47)
[2023-12-05] MEDS: methADONE HCl 20 MG/2 ML ORAL.CONC 55 MG PO (07:39)
[2023-12-05] MEDS: Nicotine 21 MG PATCH.TD24 TRANSDERMA (08:21)
[2023-12-05 08:22] VITALS: BP 122/64
[2023-12-05] MEDS: Nicotine Polacrilex 2 MG GUM BUCCAL (08:22)
[2023-12-05] MEDS: hydrOXYzine HCL 50 MG TABLET 100 MG PO (08:22)
[2023-12-05] MEDS: cloNIDine HCL 0.1 MG TABLET PO (08:22)
[2023-12-05] MEDS: Baclofen 10 MG TABLET PO (08:22)
[2023-12-05] MEDS: Gabapentin 300 MG CAPSULE PO (08:22)
[2023-12-05] MEDS: Multivitamin TABLET 1 TAB PO (08:22)
[2023-12-05] MEDS: Folic Acid 1 MG TABLET PO (08:23)
[2023-12-05] MEDS: busPIRone HCl 10 MG TABLET PO (08:23)
[2023-12-05] MEDS: buPROPion HCL 100 MG TABLET PO (08:23)
[2023-12-05] MEDS: clonazePAM 0.5 MG TABLET PO (08:23)
[2023-12-05] MEDS: Thiamine HCL 100 MG TABLET PO (08:23)
[2023-12-05] MEDS: OLANZapine 10 MG TABLET PO ×2 (08:23→11:02)
[2023-12-05] MEDS: Nicotine Polacrilex 2 MG GUM 4 MG BUCCAL (11:02)
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
== END 2023-12-05 11:18 | disposition other institution (70) | DRG 750 ==
LOC: HO.ED 12-02 04:22 → HO.PM5 12-02 13:56
PROVIDERS: Psychiatry & Neurology Psychiatry; Admitting Provider Clinical Nurse Specialist Psychiatric/Mental Health, Adult; Emergency Provider Emergency Medicine; Visit Provider Clinical Nurse Specialist Psychiatric/Mental Health, Adult
DX: F25.9 Schizoaffective disorder, unspecified (principal); R45.851 Suicidal ideations; F11.20 Opioid dependence, uncomplicated; F17.210 Nicotine dependence, cigarettes, uncomplicated; F14.10 Cocaine abuse, uncomplicated; F19.90 Other psychoactive substance use, unspecified, uncomplicated; Z71.6 Tobacco abuse counseling; Z79.899 Other long term (current) drug therapy
CPT/HCPCS: 36415; 70450; 80048; 80076; 80143; 80179; 80307; 81001; 81003; 85025; 87086; 87651; 93005; 99285; S9485

== ENCOUNTER → 2023-12-01 00:42 | Outpatient (BNV) | payer OTHER, SELFPAY | PROVIDERS: Emergency Provider Emergency Medicine; Visit Provider Internal Medicine Cardiovascular Disease | DX: F11.90 Opioid use, unspecified, uncomplicated (principal); R94.31 Abnormal electrocardiogram [ECG] [EKG] | CPT/HCPCS: 93010 ==

== ENCOUNTER → 2023-12-01 02:13 | Outpatient (BNV) | payer OTHER, SELFPAY | PROVIDERS: Emergency Provider Emergency Medicine; Visit Provider Psychiatry & Neurology Psychiatry | DX: F11.90 Opioid use, unspecified, uncomplicated (principal); F14.10 Cocaine abuse, uncomplicated; F25.9 Schizoaffective disorder, unspecified | CPT/HCPCS: 90792; 99222; 99231; 99232; 99238 ==